=== PATIENT | male | born 1945 | race Caucasian/White ===

== ENCOUNTER 2022-05-28 08:32 | Outpatient (CLI) | payer MEDICARE, SELFPAY ==
[2022-05-28 11:01] LABS: Albumin* 3.9 g/dL (3.3-5.0); Chloride* 105 mmol/L (96-114); Potassium* 3.7 mmol/L (3.6-5.1); Sodium* 141 mmol/L (135-149)
[2022-05-28 11:03] LABS: Bilirubin Total* 1.2 mg/dL (0.1-1.5); Carbon Dioxide* 29 mmol/L (20-32); Cholesterol* 170 mg/dL (90-199); Creatinine* 0.9 mg/dL (0.5-1.5); Estimated Glomerular Filt Rate 89 ml/min
[2022-05-28 11:04] LABS: Alanine Aminotransferase* 21 U/L (4-50); Alkaline Phosphatase* 81 U/L (40-150); Aspartate Amino Transferase* 24 U/L (12-35); Blood Urea Nitrogen* 15 mg/dL (7-30); Glucose* 106 mg/dL (60-115); Total Protein* 6.7 g/dL (6.0-8.3); Triglycerides* 181 mg/dL (40-149)
[2022-05-28 11:05] LABS: Calcium* 9.2 mg/dL (8.4-10.6); HDL Cholesterol* 48 mg/dL (>=40); LDL Cholesterol Calculated 86 mg/dL (<100)
[2022-05-28 11:46] LABS: PSA Screen* < 0.06 ng/mL (0.10-4.00)
== END 2022-05-28 08:33 | disposition home or self-care (01) ==
LOC: NFLDREF 08:32
PROVIDERS: PCP Family Medicine; Visit Provider Family Medicine
DX: E78.5 Hyperlipidemia, unspecified (principal); C61 Malignant neoplasm of prostate; I10 Essential (primary) hypertension; E66.3 Overweight
CPT/HCPCS: 80053; 80061; 84153

== ENCOUNTER 2023-02-22 08:46 | Outpatient (RCR) | payer MEDICARE, SELFPAY ==
--- NOTE | 2023-02-19 09:14 | PC.NURSE ---
Called pt to schedule next Eligard injection. Pt asked to make sure his previous injection was cleared by insurance and the hospital was paid as he had received a bill. RN called ME[employer] financial dept and was notified that the Aug, 2022 dose was cleared but that there is still issues with the February, dose. Pt was updated and reassured that the ME& financial dept was working on that. We scheduled him for an injection on Saturday this week. Reviewed the dose as this is a 4 month dose when he was getting 6 month doses. Bill will f/u with radiation in May,. Support offered.
[2023-02-22 09:32] VITALS: BP 166/92; PULSE 78; RESP 16; TEMP 36.9; O2SAT 97
== END 2023-08-21 23:59 | disposition home or self-care (01) ==
LOC: CCIC 08:46
PROVIDERS: PCP Family Medicine; Referring Provider Family Medicine; Visit Provider Internal Medicine
DX: C61 Malignant neoplasm of prostate (principal)
CPT/HCPCS: 96401; J9217

== ENCOUNTER 2023-05-29 08:40 | Outpatient (CLI) | payer MEDICARE, SELFPAY ==
--- OUTSIDE RECORDS SUMMARY | 2023-05-30 10:22 | XMS_ITS ---
Author Name Unknown Organization [facility] Address [address] [place] [address] Care Team Providers Care Combination Presser Name Role Phone Unavailable Unavailable Unavailable Surgery Details Not on file Complications Check Surgery Details section. Procedure Estimated Blood Loss Check Surgery Details section. Procedure Findings Check Surgery Details section. Procedure Specimens Taken Check Surgery Details section.
--- OUTSIDE RECORDS SUMMARY | 2023-05-30 10:22 | XMS_ITS | Referral Summary ---
Author Name Unknown Organization [facility] Address [address] [place] [address] Care Team Providers Care Plant Engineer Name Role Phone Elsewhere, Pcp Primary Care Provider Unavailabl e Source Comments Patient records contain information from all sites at [facility]. For routine questions regarding patient records, call [phone] during business hours, M-F 8:00 AM - 5:00 PM Central Time. Record requests for emergency care only can be directed to [phone] at any time.[facility] Encounters Date Type Department Care Team Description 05/27/2023 8:51 AM DINKEY ENGINEER - 05/27/2023 11:59 PM DINKEY ENGINEER Hospital Encounter Department of Laboratory Medicine in [address] [phone] Shahram Arnold M.D. Primary Malignant Neoplasm Of Prostate (HCC) Discharge Disposition: Home or Self Care 05/17/2023 11:00 AM DINKEY ENGINEER Clinical Communication Virtual Review in [address] [address] 02/28/2023 9:15 AM DINKEY ENGINEER Office Visit Division of Hematology in [address] [phone] Shahram Arnold M.D. Primary Malignant Neoplasm Of Prostate (HCC) (Primary Dx) 02/27/2023 8:37 AM DINKEY ENGINEER - 02/27/2023 11:59 PM DINKEY ENGINEER Hospital Encounter Department of Laboratory Medicine in [address] [phone] Shahram Arnold M.D. Primary Malignant Neoplasm Of Prostate (HCC) Discharge Disposition: Home or Self Care from Last 3 Months Allergies No known active allergies Medications Medication Sig Dispensed Refills Start Date End Date Status atorvastatin (LIPITOR) 20 mg tablet Take 20 mg by mouth at bedtime. 0 07/27/2019 Active tamsulosin (FLOMAX) 0.4 mg 24 hr capsule Take 2 capsules by mouth at bedtime. 2 tablets (.8mg) 0 09/01/2019 Active sildenafil (REVATIO) 20 mg tablet Take 1-5 tablets by mouth 1 hour prior to sexual activity. Do not exceed more than 5 tabs in 24 hours. 30 tablet 11 01/12/2021 Active Additional Information Patient not taking.Reported on 09/21/2022 leuprolide (ELIGARD 6 MONTH) 45 mg injection Inject 45 mg under the skin once for 1 dose. 1 each 0 05/17/2021 Active cholecalciferol, vitamin D3, 25 mcg (1,000 Unit) tablet Take 50 mcg by mouth at bedtime. Takes one 2000 Unit tablet at bedtime. 0 08/27/2021 Active lisinopriL (PRINIVIL,ZESTRIL) 40 mg tabletIndications:Ot her Secondary Hypertension Take 1 tablet (40 mg total) by mouth daily. 90 tablet 0 03/27/2022 Active Additional Information Patient taking differently:40 mg oralEvery morning, Informant: Self, Reported on 02/26/2023 chlorthalidone (HYGROTON) 25 mg tablet Take 12.5 mg by mouth every morning. Patient takes one-half 25mg tablet daily. 0 07/19/2022 Active calcium carbonate-vitamin D3 1,500 mg (600 mg calcium)-10 mcg (400 Unit) per tablet Take 1 tablet by mouth at bedtime. 0 Active leuprolide (ELIGARD 4 MONTH) 30 mg injection Inject 30 mg under the skin once. Last injection 02/22/2023. 0 Active abiraterone (ZYTIGA) 500 mg tablet Take 2 tablets (1,000 mg total) by mouth daily. 60 tablet 3 02/28/2023 Active Active Problems Problem Noted Date Diagnosed Date Other Secondary Hypertension 12/25/2021 Primary Malignant Neoplasm Of Prostate Cancer Staging:Clinical stage from 03/07/2021:Stage IIIC(cT4, cN0, cM0, PSA: 4, Grade Group: 5) - Signed by Benitez Ames M.D. on 03/31/2021 Immunizations Name Administration Dates Next Due HZV (ZOSTAVAX) 09/27/2013 PCV13 10/03/2016 PPSV23(Discontinued) 01/21/2018 RZV (SHINGRIX) 12/20/2020,07/16/2020 SARS-COV-2 (COVID-19) - MODERNA(Discontinued) ,05/29/2020 Td (Adult), adsorbed 01/20/1999 Tdap 04/13/2019,10/04/2009 Social History Tobacco Use Types Packs/Day Years Used Date Smoking Tobacco: Former Cigarettes 0 2 0 10/14/1963 - 10/13/1965 Smokeless Tobacco: Never Tobacco Cessation:Counseling Given: Not Answered Alcohol Use Standard Drinks/Week Comments Yes 19 (1 standard drink = 0.6 oz pu re alcohol) Humiliation, Afraid, Rape, and Kick questionnair e Answer Date Recorded Within the last year, have y ou been afraid of your partner or ex-partner? No 05/18/2022 Within the last year, have y ou been humiliated or emotionally abused in other ways by your partner or ex-partner? No Within the last year, have y ou been kicked, hit, slapped, or otherwise physically hurt by your partner or ex-partner? No 05/18/2022 Within the last year, have y ou been raped or forced to have any kind of sexual activity by your partner or ex-partner? No 05/18/2022 Social Connection and Isolation Panel [NHANES] A nswer Date Recorded In a typical week, how many times do you talk on the phone with family, friends, or neighbors? Three times a week 05/18/19 How often do you get togethe r with friends or relatives? Once a week 05/18/2022 How often do you attend chur or tenriism services? Never 05/18/2022 Do you belong to any clubs o r organizations such as lutheran groups, unions, fraternal or athletic groups, or school groups? No 05/18/2022 How often do you attend meet ings of the clubs or organizations you belong to? Never 05/18/2022 Are you , , di vorced, , never , or living with a partner? Living with partner 05/18/2022 AUDIT-C Answer Date Recorded Q1: How often do you have a drink containing alcohol? 4 or more times a week 05/18/2022 Q2: How many drinks containi ng alcohol do you have on a typical day when you are drinking? 1 or 2 Q3: How often do you have si x or more drinks on one occasion? Less than monthly 05/18/2022 Overall Financial Resource Strain (CARDIA) Answe r Date Recorded How hard is it for you to pa y for the very basics like food, housing, medical care, and heating? Not hard at all 05/18/2022 [facility] - Occupational Stress Questionnaire Answer Date Recorded Do you feel stress - tense, restless, nervous, or anxious, or unable to sleep at night because your mind is troubled all the time - these days? Only a little 05/18/2022 Exercise Vital Sign Answer Date Recorde d On average, how many days pe r week do you engage in moderate to strenuous exercise (like a brisk walk)? 1 day 05/18/2022 On average, how many minutes do you engage in exercise at this level? 40 min 05/18/2022 Hunger Vital Sign Answer Date Recorded Within the past 12 months, y ou worried that your food would run out before you got the money to buy more. Never true 05/18/19 23 Within the past 12 months, t he food you bought just didn't last and you didn't have money to get more. Never true 05/18/2022 PRAPARE - Transportation Answer Date Re corded In the past 12 months, has l ack of transportation kept you from medical appointments or from getting medications? No 06/2022 In the past 12 months, has l ack of transportation kept you from meetings, work, or from getting things needed for daily living? No 05/18/2022 Housing Stability Vital Sign Answer Kai e Recorded In the last 12 months, was t here a time when you were not able to pay the mortgage or rent on time? No 05/18/2022 In the last 12 months, how many places have you lived? 1 05/18/2022 In the last 12 months, was t here a time when you did not have a steady place to sleep or slept in a senior living (including now)? No 05/18/2022 Nutrition Answer Date Recorded Nutrition: EVOO Fat Source No 05/18 On average, how many serving s of fruits and vegetables do you eat per day (serving size is equal to 1 cup or approximately the size of a tennis ball)? 0-1 05/18/2022 Dental Answer Date Recorded Dental: Regular Dentist Yes 04/14/20 Employment Answer Date Recorded Employment status Retired 05/18/2022 Education Answer Date Recorded What is the highest level of school you have completed or the highest degree you have received? Associate degree: occupational, technical, or vocational program 12/21/2020 Sex and Gender Information Value Date Recorded Sex Assigned at Male 12/16/2020 9:13 AM CDT Gender Identity Male 12/16/2020 9:13 AM CDT Sexual Orientation Straight 12/16/2020 9: 13 AM CDT Last Filed Vital Signs Vital Sign Reading Time Taken Comments Blood Pressure 180/97 02/28/2023 9:03 AM DINKEY ENGINEER Pulse 77 02/28/2023 9:03 AM DINKEY ENGINEER Temperature 37.1 ??C (98.8 ??F) 02/28/2023 9:03 AM CS T Respiratory Rate 16 02/28/2023 9:03 AM DINKEY ENGINEER Oxygen Saturation 96% 02/28/2023 9:03 AM DINKEY ENGINEER Inhaled Oxygen Concentration - - Weight 81.6 kg (179 lb 14.3 oz) 02/28/2023 9:03 AM DINKEY ENGINEER Height 165.1 cm (5' 5) 02/28/2023 9:03 AM DINKEY ENGINEER Body Mass Index 29.94 02/28/2023 9:03 AM DINKEY ENGINEER Plan of Treatment Upcoming Encounters Date Type Department Care Team (Latest Contact Info) Description 05/30/2023 11:00 AM DINKEY ENGINEER Clinical Communication Virtual Review in [place], [place] [address] [place] [address] 06/06/2023 11:15 AM DINKEY ENGINEER Office Visit Department of Oncology in [place], [place] [address] [place] [phone] Shahram Arnold M.D. [address] [place] [address] 06/07/2023 2:00 PM DINKEY ENGINEER Appointment Department of Radiation Oncology in [place], [place] [address] [place] [address] Benitez Ames M.D. [address] [place] [address] Procedures Procedure Name Priority Date/Time Associated Diagnosis Comments PROSTATE-SPECIFIC AG (PSA) DIAGNOSTIC, S Routine 05/27/2023 9:00 AM DINKEY ENGINEER Primary Malignant Neoplasm Of Prostate (HCC) COMPREHENSIVE METABOLIC PANEL, S/P Routine 05/27/2023 9:00 AM DINKEY ENGINEER Primary Malignant Neoplasm Of Prostate (HCC) CBC WITH DIFFERENTIAL, B Routine 05/27/2023 9:00 AM DINKEY ENGINEER Primary Malignant Neoplasm Of Prostate (HCC) TESTOSTERONE, TOT AND FR, S Routine 02/27/2023 8:42 AM DINKEY ENGINEER Primary Malignant Neoplasm Of Prostate (HCC) PROSTATE-SPECIFIC AG (PSA) DIAGNOSTIC, S Routine 02/27/2023 8:42 AM DINKEY ENGINEER Primary Malignant Neoplasm Of Prostate (HCC) COMPREHENSIVE METABOLIC PANEL, S/P Routine 02/27/2023 8:42 AM DINKEY ENGINEER Primary Malignant Neoplasm Of Prostate (HCC) CBC WITH DIFFERENTIAL, B Routine 02/27/2023 8:42 AM DINKEY ENGINEER Primary Malignant Neoplasm Of Prostate (HCC) from Last 3 Months Results * (ABNORMAL) CBC with Differential, Blood (05/27/2023 9:00 AM DINKEY ENGINEER) Only the most recent of2 resultswithin the time period is included. Hemoglobin 12.3(L) 13.2 - 16.6 g/dL 05/27/2023 9:16 AM DINKEY ENGINEER CNFL Hematocrit 36.2(L) 38.3 - 48.6 % 05/27/2023 9:16 AM DINKEY ENGINEER CNFL Erythrocytes 4.17(L) 4.35 - 5.65 x10(12)/L 05/27/2023 9:16 AM DINKEY ENGINEER CNFL MCV 86.8 78.2 - 97.9 fL 05/27/2023 9:16 AM DINKEY ENGINEER CNFL RBC Distrib Width 13.7 11.8 - 14.5 % 05/27/2023 9:16 AM DINKEY ENGINEER CNFL Platelet Count 233 135 - 317 x10(9)/L 05/27/2023 9:16 AM DINKEY ENGINEER CNFL Leukocytes 6.7 3.4 - 9.6 x10(9)/L 05/27/2023 9:16 AM DINKEY ENGINEER CNFL Neutrophils 4.65 1.56 - 6.45 x10(9)/L 05/27/2023 9:16 AM DINKEY ENGINEER CNFL Lymphocytes 1.21 0.95 - 3.07 x10(9)/L 05/27/2023 9:16 AM DINKEY ENGINEER CNFL Monocytes 0.57 0.26 - 0.81 x10(9)/L 05/27/2023 9:16 AM DINKEY ENGINEER CNFL Eosinophils 0.26 0.03 - 0.48 x10(9)/L 05/27/2023 9:16 AM DINKEY ENGINEER CNFL Basophils <0.04 0.01 - 0.08 x10(9)/L 05/27/2023 9:16 AM DINKEY ENGINEER CNFL Blood (Blood, Venous) 05/27/2023 9:00 AM DINKEY ENGINEER 05/27/2023 9:02 AM DINKEY ENGINEER Shahram Arnold M.D. LAB BLOOD ADD-ON Performing Organization Address City/State/[facility] Co de Phone Number [facility] [address] [place] [id number], [facility] CNFL [facility] in [address] [address] * PSA (Prostate-Specific Antigen), Diagnostic (05/27/2023 9:00 AM DINKEY ENGINEER) Only the most recent of2 resultswithin the time period is included. Prostate-Specific Ag <0.10 <=6.5 ng/mL 05/27/2023 1:46 PM DINKEY ENGINEER [facility] Comment: ----ADDITIONAL INFORMATION---- The testing method is an electrochemiluminescence assay manufactured by [employer] and performed on the Modular or Jessie system. Values obtained with different assay methods or kits may be different and cannot be used interchangeably. Test results cannot be interpreted as absolute evidence for the presence or absence of malignant disease. Blood (Blood, Venous) 05/27/2023 9:00 AM DINKEY ENGINEER 05/27/2023 1:01 PM DINKEY ENGINEER Sharham Arnold M.D. LAB BLOOD ADD-ON [facility] [address] [place] [address], [facility] [place] [address] [place] [phone] * (ABNORMAL) Comprehensive Metabolic Panel (05/27/2023 9:00 AM DINKEY ENGINEER) Only the most recent of2 resultswithin the time period is included. Pathologist [facility] Potassium, P 3.2(L) 3.6 - 5.2 mmol/L 05/27/2023 9:27 AM DINKEY ENGINEER CNFL Sodium, P 141 135 - 145 mmol/L 05/27/2023 9:27 AM DINKEY ENGINEER CNFL Chloride, P 101 98 - 107 mmol/L 05/27/2023 9:27 AM DINKEY ENGINEER CNFL Bicarbonate, P 30(H) 22 - 29 mmol/L 05/27/2023 9:51 AM DINKEY ENGINEER CNFL Anion Gap, P 10 7 - 15 05/27/2023 9:51 AM DINKEY ENGINEER CNFL BUN (Blood Urea Nitrogen), P 16 8 - 24 mg/dL 05/27/2023 9:51 AM DINKEY ENGINEER CNFL Creatinine 1.13 0.74 - 1.35 mg/dL 05/27/2023 9:51 AM DINKEY ENGINEER CNFL Estimated GFR (eGFR) 67 >=60 mL/min/BS A 05/27/2023 9:51 AM DINKEY ENGINEER CNFL Comment: Estimated GFR calculated using the 2020 CKD_EPI creatinine equation. Calcium, Total, P 8.8 8.8 - 10.2 mg/dL 05/27/2023 9:51 AM DINKEY ENGINEER CNFL Glucose, P 210(H) 70 - 140 mg/dL 05/27/2023 9:51 AM DINKEY ENGINEER CNFL Protein, Total, P 6.6 6.3 - 7.9 g/dL 05/27/2023 9:51 AM DINKEY ENGINEER CNFL Albumin, P 3.8 3.5 - 5.0 g/dL 05/27/2023 9:27 AM DINKEY ENGINEER CNFL Aspartate Aminotransferase (AST), P 17 8 - 48 U/L 05/27/2023 9:27 AM DINKEY ENGINEER CNFL Alkaline Phosphatase, P 73 40 - 129 U/L 05/27/2023 9:27 AM DINKEY ENGINEER CNFL Alanine Aminotransferase (ALT), P 16 7 - 55 U/L 05/27/2023 9:27 AM DINKEY ENGINEER CNFL Bilirubin, Total, P 0.9 0.0 - 1.2 mg/dL 05/27/2023 9:51 AM DINKEY ENGINEER CNFL Blood (Blood, Venous) 05/27/2023 9:00 AM DINKEY ENGINEER 05/27/2023 9:02 AM DINKEY ENGINEER Shahram Arnold M.D. LAB BLOOD ADD-ON [facility] [address] [place] [id number], [facility] [address] [address] * (ABNORMAL) Testosterone, Total and Free (02/27/2023 8:42 AM DINKEY ENGINEER) Testosterone, Free, S <0.13(L) 3.08 - 11.3 ng/dL 03/06/2023 12:15 PM DINKEY ENGINEER [facility] Comment: ----ADDITIONAL INFORMATION---- This test was developed and its performance characteristics determined by [facility] in a manner consistent with CLIA requirements. This test has not been cleared or approved by the U.S. Food and Drug Administration. Testosterone, Total by Mass Spectrometry, Serum <7.0(L) 240 - 950 ng/dL 03/04/2023 12:59 PM DINKEY ENGINEER [facility] Comment: ----ADDITIONAL INFORMATION---- Testing performed by Liquid Chromatography-Tandem Mass Spectrometry (LC-MS/MS). This test was developed and its performance characteristics determined by [facility] in a manner consistent with CLIA requirements. This test has not been cleared or approved by the U.S. Food and Drug Administration. Blood (Blood, Venous) 02/27/2023 8:42 AM DINKEY ENGINEER 02/28/2023 7:11 AM DINKEY ENGINEER Shahram Arnold M.D. LAB BLOOD NON ADD-O N [facility] [address] [place] [address] [facility] [address] [place] [address] [place] [address] from Last 3 Months Care Teams Plant Engineer Relationship Specialty Start Date End Date Elsewhere, Pcp PCP - General Internal Medicine 10/22/19
--- OUTSIDE RECORDS SUMMARY | 2023-05-30 10:22 | XMS_ITS ---
Author Name Unknown Organization [facility] Address [address] [place] [address] Care Team Providers Care Hand Binder Cutter Name Role Phone Elsewhere, Pcp Primary Care Provider Unavailabl e Active Problems Problem Noted Date Diagnosed Date Other Secondary Hypertension 12/25/2021 Primary Malignant Neoplasm Of Prostate Cancer Staging:Clinical stage from 03/07/2021:Stage IIIC(cT4, cN0, cM0, PSA: 4, Grade Group: 5) - Signed by Benitez Ames M.D. on 03/31/2021 Current Oncology Plans Leuprolide Acetate Every 16 Weeks* Plan Start Date:02/11/2023 Plan Provider:Sienna Strange P.A.-C., M.S. Linked Problems Primary Malignant Neoplasm O f Prostate (HCC) Treatment Medications No medications scheduled. Past Plans Hem/Onc Therapy Plan 1 Plan Name Start Date Discontinue Date Treatment Medications Discontinue Reason Plan Provider LEUPROLIDE ACETATE EVERY 24 WEEKS 06/28/2021 02/06/2023 No medications scheduled. Therapy Complete Adriel Higgins D.O. Hem/Onc Therapy Plan 2 Plan Name Start Date Discontinue Date Treatment Medications Discontinue Reason Plan Provider LEUPROLIDE ACETATE EVERY 24 WEEKS 08/27/2022 01/03/2023 No medications scheduled. Unlisted Rena Kee APRN, C.N.P., D.N.P. Radiation Treatments * Plan Last Treated On Elapsed Days Fractions Treated Prescribed Fraction Dose Prescribed Total Dose [id number] 05/22/2021 35 26 of 26 270 cGy 7,020 cG y Reference Point Last Treated On Elapsed Days Session Dose Total Dose [id number] 05/22/2021 35 270 cGy 7,020 cGy
--- OUTSIDE RECORDS SUMMARY | 2023-05-30 10:22 | XMS_ITS | Clinical Summary ---
Author Name Unknown Organization [facility] Address [address] [place] [address] Care Team Providers Care Door Cutter Name Role Phone Elsewhere, Pcp Primary Care Provider Unavailabl e Source Comments Patient records contain information from all sites at [facility]. For routine questions regarding patient records, call [phone] during business hours, M-F 8:00 AM - 5:00 PM Central Time. Record requests for emergency care only can be directed to [phone] at any time.[facility] Allergies No known active allergies Medications Medication [...] Signed by Benitez Ames M.D. on 03/31/2021 Encounters Date Type Department Care Team Description 05/27/2023 8:51 AM BUSINESS BANKING SALES ASSISTANT - 05/27/2023 11:59 PM BUSINESS BANKING SALES ASSISTANT Hospital Encounter Department of Laboratory Medicine in [address] [phone] Shahram Arnold M.D. Primary Malignant Neoplasm Of Prostate (HCC) Discharge Disposition: Home or Self Care 05/17/2023 11:00 AM BUSINESS BANKING SALES ASSISTANT Clinical Communication Virtual Review in [address] [address] 02/28/2023 9:15 AM BUSINESS BANKING SALES ASSISTANT Office Visit Division of Hematology in [address] [phone] Shahram Arnold M.D. Primary Malignant Neoplasm Of Prostate (HCC) (Primary Dx) 02/27/2023 8:37 AM BUSINESS BANKING SALES ASSISTANT - 02/27/2023 11:59 PM BUSINESS BANKING SALES ASSISTANT Hospital Encounter Department of Laboratory Medicine in [address] [phone] Shahram Arnold M.D. Primary Malignant Neoplasm Of Prostate (HCC) Discharge Disposition: Home or Self Care from Last 3 Months Immunizations Name Administration Dates Next Due HZV (ZOSTAVAX) 09/27/2013 PCV13 10/03/2016 PPSV23(Discontinued) 01/21/2018 RZV (SHINGRIX) 12/20/2020,07/16/2020 SARS-COV-2 (COVID-19) - MODERNA(Discontinued) ,05/29/2020 Td (Adult), adsorbed 01/20/1999 Tdap 04/13/2019,10/04/2009 Family History Medical History Relation Name Comments Hyperlipidemia Father Pradip Dementia Mother Elisavita Diabetes Mother Elize Relation Name Status Comments Father Pradip Mother Levy Social History Tobacco Use Types Packs/Day Years [...] or neighbors? Three times a week 05/18/19 23 How often do you get togethe r with friends or relatives? Once a week 05/18/2022 How often do you attend [facility] or taoist services? Never 05/18/2022 Do you belong to any clubs o r organizations such as temple groups, unions, fraternal or athletic groups, or [...] and heating? Not hard at all 05/18/2022 [facility] - Occupational Stress Questionnaire Answer Date [...] place to sleep or slept in a skilled nursing (including now)? No 05/18/2022 Nutrition Answer Date [...] Comments Blood Pressure 180/97 02/28/2023 9:03 AM BUSINESS BANKING SALES ASSISTANT Pulse 77 02/28/2023 9:03 AM BUSINESS BANKING SALES ASSISTANT Temperature 37.1 ??C (98.8 ??F) 02/28/2023 9:03 AM CS T Respiratory Rate 16 02/28/2023 9:03 AM BUSINESS BANKING SALES ASSISTANT Oxygen Saturation 96% 02/28/2023 9:03 AM BUSINESS BANKING SALES ASSISTANT Inhaled Oxygen Concentration - - Weight 81.6 kg (179 lb 14.3 oz) 02/28/2023 9:03 AM BUSINESS BANKING SALES ASSISTANT Height 165.1 cm (5' 5) 02/28/2023 9:03 AM BUSINESS BANKING SALES ASSISTANT Body Mass Index 29.94 02/28/2023 9:03 AM BUSINESS BANKING SALES ASSISTANT Plan of Treatment Upcoming Encounters Date Type Department Care Team (Latest Contact Info) Description 05/30/2023 11:00 AM BUSINESS BANKING SALES ASSISTANT Clinical Communication Virtual Review in [place], [place] [address] [place], [place] [phone] 06/06/2023 11:15 AM BUSINESS BANKING SALES ASSISTANT Office Visit Department of Oncology in [place], [place] [address] [place] [phone] Shahram Arnold M.D. [address] [place] [phone] 06/07/2023 2:00 PM BUSINESS BANKING SALES ASSISTANT Appointment Department of Radiation Oncology in [place], [place] [address] [place] [phone] Benitez Ames M.D. [address] [place] [phone] Health Maintenance Due Date Last Done Comments Hepatitis C Screening 1945 Influenza Vaccine (#1) 2023 03/27/2022 Depression Screening (Annual PHQ-2) 04/15/2023 Fall Risk Screen (Annual) 04/15/2023 Office Visit for Blood Pressure Check / Re-check 05/31/2023 02/28/2023 Creatinine Level (Kidney Function Test) 05/27/2024 05/27/2023, 02/27/2023, 12/24/2022, Additional history exists Potassium Level 05/27/2024 05/27/2023, 02/13, 12/24/2022, Additional history exists Sodium Level 05/27/2024 05/27/2023, 02/13, 12/24/2022, Additional history exists DTaP,Tdap,and Td Vaccines (3 - Td or Tdap) 04/13/2029 04/13/2019, 10/04/2009, 01/20/1999 Pneumococcal vaccine (65+ years) Completed 01/21/2018, 10/03/2016 Zoster Vaccines Completed 12/20/2020, 06/2020, 09/27/2013 COVID-19 Vaccine Completed 08/17/2022, 11/2021, 07/18/2021, Additional history exists HPV Vaccines Aged Out No longer eligi ble based on patient's age to complete this topic Procedures Procedure Name Priority Date/Time Associated Diagnosis Comments PROSTATE-SPECIFIC AG (PSA) DIAGNOSTIC, S Routine 05/27/2023 9:00 AM BUSINESS BANKING SALES ASSISTANT Primary Malignant Neoplasm Of Prostate (HCC) COMPREHENSIVE METABOLIC PANEL, S/P Routine 05/27/2023 9:00 AM BUSINESS BANKING SALES ASSISTANT Primary Malignant Neoplasm Of Prostate (HCC) CBC WITH DIFFERENTIAL, B Routine 05/27/2023 9:00 AM BUSINESS BANKING SALES ASSISTANT Primary Malignant Neoplasm Of Prostate (HCC) TESTOSTERONE, TOT AND FR, S Routine 02/27/2023 8:42 AM BUSINESS BANKING SALES ASSISTANT Primary Malignant Neoplasm Of Prostate (HCC) PROSTATE-SPECIFIC AG (PSA) DIAGNOSTIC, S Routine 02/27/2023 8:42 AM BUSINESS BANKING SALES ASSISTANT Primary Malignant Neoplasm Of Prostate (HCC) COMPREHENSIVE METABOLIC PANEL, S/P Routine 02/27/2023 8:42 AM BUSINESS BANKING SALES ASSISTANT Primary Malignant Neoplasm Of Prostate (HCC) CBC WITH DIFFERENTIAL, B Routine 02/27/2023 8:42 AM BUSINESS BANKING SALES ASSISTANT Primary Malignant Neoplasm Of Prostate (HCC) from Last 3 Months Results * (ABNORMAL) CBC with Differential, Blood (05/27/2023 9:00 AM BUSINESS BANKING SALES ASSISTANT) Only the most recent of2 resultswithin the time period is included. Hemoglobin 12.3(L) 13.2 - 16.6 g/dL 05/27/2023 9:16 AM BUSINESS BANKING SALES ASSISTANT CNFL Hematocrit 36.2(L) 38.3 - 48.6 % 05/27/2023 9:16 AM BUSINESS BANKING SALES ASSISTANT CNFL Erythrocytes 4.17(L) 4.35 - 5.65 x10(12)/L 05/27/2023 9:16 AM BUSINESS BANKING SALES ASSISTANT CNFL MCV 86.8 78.2 - 97.9 fL 05/27/2023 9:16 AM BUSINESS BANKING SALES ASSISTANT CNFL RBC Distrib Width 13.7 11.8 - 14.5 % 05/27/2023 9:16 AM BUSINESS BANKING SALES ASSISTANT CNFL Platelet Count 233 135 - 317 x10(9)/L 05/27/2023 9:16 AM BUSINESS BANKING SALES ASSISTANT CNFL Leukocytes 6.7 3.4 - 9.6 x10(9)/L 05/27/2023 9:16 AM BUSINESS BANKING SALES ASSISTANT CNFL Neutrophils 4.65 1.56 - 6.45 x10(9)/L 05/27/2023 9:16 AM BUSINESS BANKING SALES ASSISTANT CNFL Lymphocytes 1.21 0.95 - 3.07 x10(9)/L 05/27/2023 9:16 AM BUSINESS BANKING SALES ASSISTANT CNFL Monocytes 0.57 0.26 - 0.81 x10(9)/L 05/27/2023 9:16 AM BUSINESS BANKING SALES ASSISTANT CNFL Eosinophils 0.26 0.03 - 0.48 x10(9)/L 05/27/2023 9:16 AM BUSINESS BANKING SALES ASSISTANT CNFL Basophils <0.04 0.01 - 0.08 x10(9)/L 05/27/2023 9:16 AM BUSINESS BANKING SALES ASSISTANT CNFL Blood (Blood, Venous) 05/27/2023 9:00 AM BUSINESS BANKING SALES ASSISTANT 05/27/2023 9:02 AM BUSINESS BANKING SALES ASSISTANT Shahram Arnold M.D. LAB BLOOD ADD-ON Performing Organization Address City/State/[facility] Co de Phone Number [facility] [address] [place] [address], [facility] [place] [address] * PSA (Prostate-Specific Antigen), Diagnostic (05/27/2023 9:00 AM BUSINESS BANKING SALES ASSISTANT) Only the most recent of2 resultswithin the time period is included. Prostate-Specific Ag <0.10 <=6.5 ng/mL 05/27/2023 1:46 PM BUSINESS BANKING SALES ASSISTANT [facility] Comment: ----ADDITIONAL INFORMATION---- The testing method is an electrochemiluminescence assay manufactured by [employer] and performed on the Modular or Jessie system. Values obtained with different assay methods or kits may be different and cannot be used interchangeably. Test results cannot be interpreted as absolute evidence for the presence or absence of malignant disease. Blood (Blood, Venous) 05/27/2023 9:00 AM BUSINESS BANKING SALES ASSISTANT 05/27/2023 1:01 PM BUSINESS BANKING SALES ASSISTANT Shahram Arnold M.D. LAB BLOOD ADD-ON [facility] [address] [place] [address], [facility] in [place] [address], [place] [phone] * (ABNORMAL) Comprehensive Metabolic Panel (05/27/2023 9:00 AM BUSINESS BANKING SALES ASSISTANT) Only the most recent of2 resultswithin the time period is included. Potassium, P 3.2(L) 3.6 - 5.2 mmol/L 05/27/2023 9:27 AM BUSINESS BANKING SALES ASSISTANT CNFL Sodium, P 141 135 - 145 mmol/L 05/27/2023 9:27 AM BUSINESS BANKING SALES ASSISTANT [facility] Chloride, P 101 98 - 107 mmol/L 05/27/2023 9:27 AM BUSINESS BANKING SALES ASSISTANT CNFL Bicarbonate, P 30(H) 22 - 29 mmol/L 05/27/2023 9:51 AM BUSINESS BANKING SALES ASSISTANT CNFL Anion Gap, P 10 7 - 15 05/27/2023 9:51 AM BUSINESS BANKING SALES ASSISTANT [facility] BUN (Blood Urea Nitrogen), P 16 8 - 24 mg/dL 05/27/2023 9:51 AM BUSINESS BANKING SALES ASSISTANT [facility] Creatinine 1.13 0.74 - 1.35 mg/dL 05/27/2023 9:51 AM BUSINESS BANKING SALES ASSISTANT CNFL Estimated GFR (eGFR) 67 >=60 mL/min/BS A 05/27/2023 9:51 AM BUSINESS BANKING SALES ASSISTANT CN[facility] Comment: Estimated GFR calculated using the 2020 CKD_EPI creatinine equation. Calcium, Total, P 8.8 8.8 - 10.2 mg/dL 05/27/2023 9:51 AM BUSINESS BANKING SALES ASSISTANT CNFL Glucose, P 210(H) 70 - 140 mg/dL 05/27/2023 9:51 AM BUSINESS BANKING SALES ASSISTANT CN[facility] Protein, Total, P 6.6 6.3 - 7.9 g/dL 05/27/2023 9:51 AM BUSINESS BANKING SALES ASSISTANT CN[facility] Albumin, P 3.8 3.5 - 5.0 g/dL 05/27/2023 9:27 AM BUSINESS BANKING SALES ASSISTANT CNFL Aspartate Aminotransferase (AST), P 17 8 - 48 U/L 05/27/2023 9:27 AM BUSINESS BANKING SALES ASSISTANT CNFL Alkaline Phosphatase, P 73 40 - 129 U/L 05/27/2023 9:27 AM BUSINESS BANKING SALES ASSISTANT CNFL Alanine Aminotransferase (ALT), P 16 7 - 55 U/L 05/27/2023 9:27 AM BUSINESS BANKING SALES ASSISTANT CNFL Bilirubin, Total, P 0.9 0.0 - 1.2 mg/dL 05/27/2023 9:51 AM BUSINESS BANKING SALES ASSISTANT CNFL Blood (Blood, Venous) 05/27/2023 9:00 AM BUSINESS BANKING SALES ASSISTANT 05/27/2023 9:02 AM BUSINESS BANKING SALES ASSISTANT Shahram Arnold M.D. LAB BLOOD ADD-ON [facility] [address] [place] [address], [facility] CNFL [facility] [place] [address] * (ABNORMAL) Testosterone, Total and Free (02/27/2023 8:42 AM BUSINESS BANKING SALES ASSISTANT) Pathologist [facility] Testosterone, Free, S <0.13(L) 3.08 - 11.3 ng/dL 03/06/2023 12:15 PM [facility] Comment: ----ADDITIONAL INFORMATION---- This test was developed and its performance characteristics determined by [facility] in a manner consistent with CLIA requirements. This test has not been cleared or approved by the U.S. Food and Drug Administration. Testosterone, Total by Mass Spectrometry, Serum <7.0(L) 240 - 950 ng/dL 03/04/2023 12:59 PM [facility] Comment: ----ADDITIONAL INFORMATION---- Testing performed by Liquid Chromatography-Tandem Mass Spectrometry (LC-MS/MS). This test was developed and its performance characteristics determined by [facility] in a manner consistent with CLIA requirements. This test has not been cleared or approved by the U.S. Food and Drug Administration. Blood (Blood, Venous) 02/27/2023 8:42 AM BUSINESS BANKING SALES ASSISTANT 02/28/2023 7:11 AM BUSINESS BANKING SALES ASSISTANT Shahram Arnold M.D. LAB BLOOD NON ADD-O N [facility] [place] [address] [place] [address] [facility] [address] [place] [address] [place] [address] from Last 3 Months Care Teams Door Cutter Relationship Specialty Start Date End Date Elsewhere, Pcp PCP - General Internal Medicine 10/22/19
--- OUTSIDE RECORDS SUMMARY | 2023-05-30 10:23 | XMS_ITS | Encounter Summary ---
Author Name Unknown Organization [facility] Address [address] [place] [address] Care Team Providers Care Knockout Machine Operator Name Role Phone Elsewhere, Pcp Primary Care Provider Unavailabl e Reason for Visit * Reason Onset Date Comments Blood Pressure 02/26/2023 Encounter Details Date Type Department Care Team (Latest Contact Info) Description 02/26/2023 1:45 PM HOMICIDE SQUAD SERGEANT Clinical Communication Virtual Review in [place], [place] [address] [place] [address] Blood Pressure Social History Tobacco Use Types Packs/Day Years [...] 05/18/2022 How often do you attend chur ch or lutheran services? Never 05/18/2022 Do you belong to any clubs o r organizations such as oriental orthodox groups, unions, fraternal or athletic groups, or [...] when you are drinking? 1 or 2 3 Q3: How often do you have si x or more drinks on one occasion? Less than monthly 05/18/2022 Overall Financial Resource Strain (CARDIA) Answe r Date Recorded How hard is it for you to pa y for the very basics like food, housing, medical care, and heating? Not hard at all 05/18/2022 [facility] - Occupational Stress [...] place to sleep or slept in a penitentiary (including now)? No 05/18/2022 Nutrition Answer Date [...] Orientation Straight 12/16/2020 9: 13 AM CDT documented as of this encounter Plan of Treatment Upcoming Encounters Date Type Department Care Team (Latest Contact Info) Description 05/30/2023 11:00 AM HOMICIDE SQUAD SERGEANT Clinical Communication Virtual Review in [place], [place] [address] [place] [address] 06/06/2023 11:15 AM HOMICIDE SQUAD SERGEANT Office Visit Department of Oncology in [place], [place] [address] [place] [phone] Shahram Arnold M.D. [address] [place] [phone] 06/07/2023 2:00 PM HOMICIDE SQUAD SERGEANT Appointment Department of Radiation Oncology in [place], [place] [address] [place] [phone] Benitez Ames M.D. [address] [place] [address] documented as of this encounter Visit Diagnoses Not on filedocumented in this encounter Care Teams Knockout Machine Operator Relationship Specialty Start Date End Date Elsewhere, Pcp PCP - General Internal Medicine 10/22/19 documented as of this encounter
--- OUTSIDE RECORDS SUMMARY | 2023-05-30 10:23 | XMS_ITS | Encounter Summary ---
Author Name Unknown Organization [facility] Address [address] [place] [address] Care Team Providers Care Teacher [employer] Name Role Phone Elsewhere, Pcp Primary Care Provider Unavailabl e Encounter Details Date Type Department Care Team (Late st Contact Info) Description 11/22/2022 Orders Only Division of Hematology in [place], [place] [address] [place] [phone] Shahram Arnold M.D. [address] [place] [phone] Social History Tobacco Use Types Packs/Day Years Used Date Smoking Tobacco: Former Cigarettes 0 2 0 10/14/1963 - 10/13/1965 Smokeless Tobacco: Never Alcohol Use Standard Drinks/Week Comments Yes 19 [...] often do you attend chur ch or episcopalian services? Never 05/18/2022 Do you belong to any clubs o r organizations such as tenriism groups, unions, fraternal or athletic groups, or [...] and heating? Not hard at all 05/18/2022 [facility] [place] [facility] - Occupational Stress [...] place to sleep or slept in a [facility] (including now)? No 05/18/2022 Nutrition Answer Date [...] (Latest Contact Info) Description 05/30/2023 11:00 AM STONEMASON HELPER Clinical Communication Virtual Review in [place], [place] [address] [place] [address] 06/06/2023 11:15 AM STONEMASON HELPER Office Visit Department of Oncology in [place], [place] [address] [place] [phone] Shahram Arnold M.D. [address] [place] [phone] 06/07/2023 2:00 PM STONEMASON HELPER Appointment Department of Radiation Oncology in [place], [place] [address] [place] [phone] Benitez Ames M.D. [address] [place] [phone] documented as of this encounter Visit Diagnoses Not on filedocumented in this encounter Care Teams Teacher [employer] Relationship Specialty Start Date End Date Elsewhere, Pcp PCP - General Internal Medicine 10/22/19 documented as of this encounter
--- OUTSIDE RECORDS SUMMARY | 2023-05-30 10:23 | XMS_ITS | Encounter Summary ---
Author Name Unknown Organization [facility] Address [address] [place] [address] Care Team Providers Care Zipper Ironer Name Role Phone Elsewhere, Pcp Primary Care Provider Unavailabl e Encounter Details Date Type Department Care Team (Latest Contact Info) Description 02/27/2023 8:37 AM MANAGER PEST - 02/27/2023 11:59 PM MANAGER PEST Hospital Encounter Department of Laboratory Medicine in [address] [phone] Shahram Arnold M.D. [address] [place] [phone] Primary Malignant Neoplasm Of Prostate (HCC) Discharge Disposition: Home or Self Care Social History Tobacco Use Types Packs/Day Years [...] often do you attend chur ch or amish services? Never 05/18/2022 Do you belong to any clubs o r organizations such as rastafari groups, unions, fraternal or athletic groups, or [...] and heating? Not hard at all 05/18/2022 [facility] - Occupational Stress Questionnaire Answer Date Recorded [...] place to sleep or slept in a group home (including now)? No 05/18/2022 Nutrition Answer Date [...] AM CDT documented as of this encounter Medications at Time of Discharge Medication Sig Dispensed Refills Start Date End Date atorvastatin (LIPITOR) 20 mg tablet Take 20 mg by mouth at bedtime. 0 07/27/2019 calcium carbonate-vitamin D3 1,500 mg (600 mg calcium)-10 mcg (400 Unit) per tablet Take 1 tablet by mouth at bedtime. 0 chlorthalidone (HYGROTON) 25 mg tablet Take 12.5 mg by mouth every morning. Patient takes one-half 25mg tablet daily. 0 07/19/2022 cholecalciferol, vitamin D3, 25 mcg (1,000 Unit) tablet Take 50 mcg by mouth at bedtime. Takes one 2000 Unit tablet at bedtime. 0 08/27/2021 leuprolide (ELIGARD 4 MONTH) 30 mg injection Inject 30 mg under the skin once. Last injection 02/22/2023. 0 lisinopriL (PRINIVIL,ZESTRIL) 40 mg tabletIndications:Other Secondary Hypertension Take 1 tablet (40 mg total) by mouth daily. 90 tablet 0 03/27/2022 sildenafil (REVATIO) 20 mg tablet Take 1-5 tablets by mouth 1 hour prior to sexual activity. Do not exceed more than 5 tabs in 24 hours. 30 tablet 11 01/12/2021 tamsulosin (FLOMAX) 0.4 mg 24 hr capsule Take 2 capsules by mouth at bedtime. 2 tablets (.8mg) 0 09/01/2019 abiraterone (ZYTIGA) 500 mg tablet Take 2 tablets (1,000 mg total) by mouth daily. 60 tablet 3 11/22/2022 02/28/2023 documented as of this encounter Plan of Treatment Upcoming Encounters Date Type Department Care Team (Latest Contact Info) Description 05/30/2023 11:00 AM MANAGER PEST Clinical Communication Virtual Review in [place], [place] 200 [place] [address] 06/06/2023 11:15 AM MANAGER PEST Office Visit Department of Oncology in [place], [place] [address] [place] [phone] Shahram Arnold M.D. [address] [place] [phone] 06/07/2023 2:00 PM MANAGER PEST Appointment Department of Radiation Oncology in [address] [phone] Benitez Ames M.D. [address] [place] [phone] documented as of this encounter Procedures Procedure Name Priority Date/Time Associated Diagnosis Comments CBC WITH DIFFERENTIAL, B Routine 02/27/2023 8:42 AM MANAGER PEST Primary Malignant Neoplasm Of Prostate (HCC) TESTOSTERONE, TOT AND FR, S Routine 02/27/2023 8:42 AM MANAGER PEST Primary Malignant Neoplasm Of Prostate (HCC) PROSTATE-SPECIFIC AG (PSA) DIAGNOSTIC, S Routine 02/27/2023 8:42 AM MANAGER PEST Primary Malignant Neoplasm Of Prostate (HCC) COMPREHENSIVE METABOLIC PANEL, S/P Routine 02/27/2023 8:42 AM MANAGER PEST Primary Malignant Neoplasm Of Prostate (HCC) documented in this encounter Results * (ABNORMAL) Testosterone, Total and Free (02/27/2023 8:42 AM MANAGER PEST) Testosterone, Free, S <0.13(L) 3.08 - 11.3 ng/dL 03/06/2023 12:15 PM MANAGER PEST [facility] Comment: ----ADDITIONAL INFORMATION---- This test was developed and its performance characteristics determined by [facility] in a manner consistent with CLIA requirements. This test has not been cleared or approved by the U.S. Food and Drug Administration. Testosterone, Total by Mass Spectrometry, Serum <7.0(L) 240 - 950 ng/dL 03/04/2023 12:59 PM MANAGER PEST [facility] Comment: ----ADDITIONAL INFORMATION---- Testing performed by Liquid Chromatography-Tandem Mass Spectrometry (LC-MS/MS). This test was developed and its performance characteristics determined by [facility] in a manner consistent with CLIA requirements. This test has not been cleared or approved by the U.S. Food and Drug Administration. Blood (Blood, Venous) 02/27/2023 8:42 AM MANAGER PEST 02/28/2023 7:11 AM MANAGER PEST Shahram Arnold M.D. LAB BLOOD NON ADD-O N [facility] [address] [place] [address] [facility] [address] [place] [address] [place] [id number] * PSA (Prostate-Specific Antigen), Diagnostic (02/27/2023 8:42 AM MANAGER PEST) Pathologist [facility] Prostate-Specific Ag <0.10 <=6.5 ng/mL 02/27/2023 1:26 PM MANAGER PEST [facility] Comment: ----ADDITIONAL INFORMATION---- The testing method is an electrochemiluminescence assay manufactured by [employer] and performed on the Modular or Jessie system. Values obtained with different assay methods or kits may be different and cannot be used interchangeably. Test results cannot be interpreted as absolute evidence for the presence or absence of malignant disease. Blood (Blood, Venous) 02/27/2023 8:42 AM MANAGER PEST 02/27/2023 12:35 PM MANAGER PEST Shahram Arnold M.D. LAB BLOOD ADD-ON [facility] [address] [place] [address], [facility] [place] [facility] [address] [place] [phone] * (ABNORMAL) Comprehensive Metabolic Panel (02/27/2023 8:42 AM MANAGER PEST) [facility] Potassium, P 3.1(L) 3.6 - 5.2 mmol/L 02/27/2023 9:05 AM MANAGER PEST CN[facility] Sodium, P 140 135 - 145 mmol/L 02/27/2023 9:05 AM MANAGER PEST CN[facility] Chloride, P 101 98 - 107 mmol/L 02/27/2023 9:05 AM MANAGER PEST CN[facility] Bicarbonate, P 30(H) 22 - 29 mmol/L 02/27/2023 9:05 AM MANAGER PEST CNFL Anion Gap, P 9 7 - 15 02/27/2023 9:05 AM MANAGER PEST CN[facility] BUN (Blood Urea Nitrogen), P 17 8 - 24 mg/dL 02/27/2023 9:05 AM MANAGER PEST CN[facility] Creatinine 0.96 0.74 - 1.35 mg/dL 02/27/2023 9:05 AM MANAGER PEST CNFL Estimated GFR (eGFR) 81 >=60 mL/min/BS A 02/27/2023 9:05 AM MANAGER PEST CNFL Comment: Estimated GFR calculated using the 2020 CKD_EPI creatinine equation. Calcium, Total, P 9.2 8.8 - 10.2 mg/dL 02/27/2023 9:05 AM MANAGER PEST CNFL Glucose, P 133 70 - 140 mg/dL 02/27/2023 9:05 AM MANAGER PEST CN[facility] Protein, Total, P 6.8 6.3 - 7.9 g/dL 02/27/2023 9:05 AM MANAGER PEST CN[facility] Albumin, P 4.1 3.5 - 5.0 g/dL 02/27/2023 9:05 AM MANAGER PEST CN[facility] Aspartate Aminotransferase (AST), P 21 8 - 48 U/L 02/27/2023 9:05 AM MANAGER PEST CN[facility] Alkaline Phosphatase, P 71 40 - 129 U/L 02/27/2023 9:05 AM MANAGER PEST CNFL Alanine Aminotransferase (ALT), P 19 7 - 55 U/L 02/27/2023 9:05 AM MANAGER PEST CNFL Bilirubin, Total, P 1.0 0.0 - 1.2 mg/dL 02/27/2023 9:05 AM MANAGER PEST CN[facility] Blood (Blood, Venous) 02/27/2023 8:42 AM MANAGER PEST 02/27/2023 8:43 AM MANAGER PEST Shahram Arnold M.D. LAB BLOOD ADD-ON Performing Organization Address [facility]/State[facility] Co de Phone Number [facility] [address] [place] [phone], [facility] in [address] [address] * (ABNORMAL) CBC with Differential, Blood (02/27/2023 8:42 AM MANAGER PEST) Hemoglobin 12.5(L) 13.2 - 16.6 g/dL 02/27/2023 8:54 AM MANAGER PEST CNFL Hematocrit 35.8(L) 38.3 - 48.6 % 02/27/2023 8:54 AM MANAGER PEST CN[facility] Erythrocytes 4.12(L) 4.35 - 5.65 x10(12)/L 02/27/2023 8:54 AM MANAGER PEST CN[facility] MCV 86.9 78.2 - 97.9 fL 02/27/2023 8:54 AM MANAGER PEST CN[facility] RBC Distrib Width 13.0 11.8 - 14.5 % 02/27/2023 8:54 AM MANAGER PEST CN[facility] Platelet Count 270 135 - 317 x10(9)/L 02/27/2023 8:54 AM MANAGER PEST CNFL Leukocytes 8.3 3.4 - 9.6 x10(9)/L 02/27/2023 8:54 AM MANAGER PEST [facility] Neutrophils 5.69 1.56 - 6.45 x10(9)/L 02/27/2023 8:54 AM MANAGER PEST [facility] Lymphocytes 1.43 0.95 - 3.07 x10(9)/L 02/27/2023 8:54 AM MANAGER PEST [facility] Monocytes 0.77 0.26 - 0.81 x10(9)/L 02/27/2023 8:54 AM MANAGER PEST CN[facility] Eosinophils 0.32 0.03 - 0.48 x10(9)/L 02/27/2023 8:54 AM MANAGER PEST CN[facility] Basophils 0.05 0.01 - 0.08 x10(9)/L 02/27/2023 8:54 AM MANAGER PEST CN[facility] Blood (Blood, Venous) 02/27/2023 8:42 AM MANAGER PEST 02/27/2023 8:43 AM MANAGER PEST Shahram Arnold M.D. LAB BLOOD ADD-ON Performing Organization Address City/State/[facility] Co de Phone Number [facility] [address] [place] [phone], [facility] CNFL [facility] in [address] [address] documented in this encounter Visit Diagnoses Diagnosis Primary Malignant Neoplasm Of Prostate (HCC) documented in this encounter Care Teams Zipper Ironer Relationship Specialty Start Date End Date Elsewhere, Pcp PCP - General Internal Medicine 10/22/19 documented as of this encounter
--- OUTSIDE RECORDS SUMMARY | 2023-05-30 10:23 | XMS_ITS | Encounter Summary ---
Author Name Unknown Organization [facility] Address [address] [place] [address] Care Team Providers Care Knowledge Management Advisor Name Role Phone Elsewhere, Pcp Primary Care Provider Unavailabl e Reason for Referral * Outpatient (Routine) - Authorized Specialty Diagnoses / Procedures Referred By Contac t Referred To Contact Oncology Shahram Arnold M.D. [address] [place] [phone] [facility] Referral ID Status Reason Start Date Expiration Date V isits Requested Visits Authorized [id number] Authorized 02/28/2023 02/27/2026 1 1 DIRECTOR OF HOME HEALTH SALES Reason for Visit * Outpatient (Routine) - Closed Specialty Diagnoses / Procedures Referred By Contac t Referred To Contact Oncology Shahram Arnold M.D. [address] [place] [phone] [facility] Referral ID Status Reason Start Date Expiration Date Visits Re quested Visits Authorized [id number] Closed 12/27/2022 12/26/2025 1 1 Encounter Details Date Type Department Care Team ([facility] st Contact Info) Description 02/28/2023 9:15 AM AREA DIRECTOR OF HOME HEALTH SALES Office Visit Division of Hematology in [place], [place] [address] [place] [phone] Shahram Arnold M.D. [address] [place] [phone] Primary Malignant Neoplasm Of Prostate (HCC) (Primary Dx) Social History Tobacco Use Types Packs/Day Years [...] How often do you attend chur or islam services? Never 05/18/2022 Do you belong to any clubs o r organizations such as religion groups, unions, fraternal or athletic groups, or [...] and heating? Not hard at all 05/18/2022 [facility] - Occupational Stress [...] place to sleep or slept in a chcf (including now)? No 05/18/2022 Nutrition Answer Date Recorded Nutrition: EVOO Fat Source No 05/18 On average, how many serving s of fruits and vegetables do you eat per day (serving size is equal to 1 cup or approximately the size of a tennis ball)? 0-1 05/18/2022 Dental Answer Date Recorded Dental: Regular Dentist Yes 04/14/20 21 Employment Answer Date Recorded Employment status Retired [...] AM CDT documented as of this encounter Last Filed Vital Signs Vital Sign Reading Time Taken Comments Blood Pressure 180/97 02/28/2023 9:03 AM AREA DIRECTOR OF HOME HEALTH SALES Pulse 77 02/28/2023 9:03 AM AREA DIRECTOR OF HOME HEALTH SALES Temperature 37.1 ??C (98.8 ??F) 02/28/2023 9:03 AM CS T Respiratory Rate 16 02/28/2023 9:03 AM AREA DIRECTOR [employer] HE[employer] SALES Oxygen Saturation 96% 02/28/2023 9:03 AM AREA DIRECTOR OF HOME HE[employer] SALES Inhaled Oxygen Concentration - - Weight 81.6 kg (179 lb 14.3 oz) 02/28/2023 9:03 AM AREA DIRECTOR [employer] HOME HE[employer] SALES Height 165.1 cm (5' 5) 02/28/2023 9:03 AM AREA DIRECTOR [employer] HOME HE[employer] SALES Body Mass Index 29.94 02/28/2023 9:03 AM AREA DIRECTOR OF HOME HEALTH SALES documented in this encounter Progress Notes * Shahrma Arnold M.D. - 02/28/2023 9:15 AM CST SUBJECTIVE CHIEF COMPLAINT / REASON FOR VISIT Ruben Hansen is a 78 y.o. male who presents for follow up of prostate adenocarcinoma. [facility] [place] Primary Staff Property Specialist: Dr. Tavera Primary Fellow: Dr. Paulino HISTORY OF PRESENT ILLNESS Oncology History Overview Note March 2021: PSA 4, Basil 9, MRI showing T4N) disease (invasion of external sphincter, seminal vesicle. FDG Pet CT uptake in prostate and small pulmonary nodule with minimal uptake, no changes insize, no follow up needed as per pulmonary. Negative bone scan April 07, 2021 started leuprolide April 17 to 05/22/21: IMRT to the prostate and seminal vesicles to a dose of 70.2 Gy in 26 fractions. His pelvic lymph nodes were treated to a dose of 46.8 Gy in 26 fractions with a simultaneous integrated boost to 57.2 Gy in 26 fractions to indeterminate left external iliac lymph nodes. Primary Malignant Neoplasm Of Prostate (HCC) 01/12/2021 - Plan Consultation with urology PSA 4.0 01/12/2021; marked focal uptake left prostate found on PET-CT for evaluation of pulmonary nodules 12/16/2020. History benign prostate hypertrophy on tamsulosin 0.8 mg daily. His primary lower urinary tract complaint is urgency with occasional incontinence. Prostate examination showed firmness left apex to mid gland. 01/12/2021 Other PSA 4.0. Outside PSAs: May 02, 2011 PSA 1.62; March 11, 2012 PSA 1.37; January 15, 2018 PSA 3.17; April 07, 2019 PSA 2.91; April 27, 2020 PSA 2.89. 01/18/2021 Critical Imaging Prostate MRI Volume 18cc PIRADS5 2.4 x 1.4 x 2.7 cm, 5.8cc, left posterior to anterior at base to apex, peripheral zone extending to transition zone suspicious for capsular penetration mid gland to base and neurovascular bundle invasion; probable involvement of seminal vesicles in midline to left in the base; mass encasingupper portion of external sphincter; no lymphadenopathy or bone lesions. 03/07/2021 Biopsy/Pathology MRI fusion biopsy: 6/6 left prostate region of interest Basil 4+5 (75% of specimen), extraprostatic extension and perineural invasion present; 6 benign cores right. Prostate examination showed leftinduration. 03/07/2021 Clinical Stage Staging form: Prostate, AJCC 8th Edition - Clinical stage from 03/07/2021: Stage IIIC (cT4, cN0, cM0, PSA: 4, Grade Group: 5) Histopathologic type: Adenocarcinoma, NOS Stage prefix: Initial diagnosis Prostate specific antigen (PSA) range: Less than 10 [place] primary pattern: 4 Basil secondary pattern: 5 Histologic grading system: 5 grade system Number of biopsy cores examined: 12 Number of biopsy cores positive: 6 Location of positive needle core biopsies: One side 04/17/2021 - 05/22/2021 Radiation Therapy Radiation Therapy Treatment Details (04/17/2021 - 05/22/2021) Site: Prostate Technique: IMRT Goal: Curative Planned Treatment Start Date: 04/17/2021 INTERVAL HISTORY Mr. Hansen presents with his fiancee for follow up today. Since our last visit, he has overall been doing well, no major changes to report today. OBJECTIVE PHYSICAL EXAM Vitals: 02/28/23 0903 BP: (!) 180/97 Pulse: 77 Resp: 16 Temp: 37.1 ??C SpO2: 96% Constitutional General: He is not in acute distress. Appearance: He is normal weight. He is not toxic-appearing. HENT Head: Normocephalic and atraumatic. Eyes Extraocular Movements: Extraocular movements intact. Conjunctiva/sclera: Conjunctivae normal. Cardiovascular Rate and Rhythm: Normal rate. Pulmonary Effort: Pulmonary effort is normal. Abdominal General: Abdomen is flat. Palpations: Abdomen is soft. Musculoskeletal Right lower leg: No edema. Left lower leg: No edema. Skin General: Skin is warm and dry. Findings: No rash. Neurological General: No focal deficit present. Mental Status: He is alert and oriented to person, place, and time. Psychiatric Mood and Affect: Mood normal. Behavior: Behavior normal. Thought Content: Thought content normal. Judgment: Judgment normal. 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 Hansen back for follow up. His labs look satisfactory today, and I am glad that he overall continues to tolerate treatment well without any significant toxicities. Although his BP is high in the office today, his home BP is significantly better, largely ranging in the 120s-130s systolic. Note that this is consistent with his prior history. Plan is for 2 years of systemic therapy from end of EBRT which was completed in May 2021. He received his dose of Eligard on approximately 02/22/2022, which is his last dose. I did discuss this with his Radiation Oncology team as well. We will plan to see him back for follow up in 3 months. I discussed the tentative surveillance plan with Dr. Ames and Dr. Tavera - we will plan for surveillance with labs (including PSA) every 3 months for the first 1-2 years (given he was high-risk,asymptomatic, and without significant PSA elevation at diagnosis). Thereafter, if all goes well, wecan consider spacing out labs to every 6 months to complete 5 years of surveillance. Following thisperiod, PSA monitoring can be spaced out to annually. He will be seeing Dr. Ames for follow up in early May 2023, and we will see him back for follow up here shortly thereafter. Shahram Arnold M.D. Hematology/Oncology PGY-5 DIRECTOR OF HOME HEALTH SALES documented in this encounter Plan of Treatment Upcoming Encounters Date Type Department Care Team (Latest Contact Info) Description 05/30/2023 11:00 AM AREA DIRECTOR OF HOME HEALTH SALES Clinical Communication Virtual Review in [place], [place] 200 [place] [address] 06/06/2023 11:15 AM AREA DIRECTOR OF HOME HEALTH SALES Office Visit Department of Oncology in [place], [place] [address] [place] [phone] Shahram Arnold M.D. [address] [place] [phone] 06/07/2023 2:00 PM AREA DIRECTOR OF [employer] HEALTH SALES Appointment Department of Radiation Oncology in [place], [place] [address] [place] [phone] Benitez Ames M.D. [address] [place] [phone] Pending Results Name Type Priority Associated Diagnoses Date /Time Testosterone, Total and Free Lab Routine Primary Malignant Neoplasm Of Prostate (HCC) 05/27/2023 9:00 AM AREA DIRECTOR OF HOME HEALTH SALES Scheduled Orders Name Type Priority Associated Diagnoses Orde r Schedule Testosterone, Total and Free Lab Routine Primary Malignant Neoplasm Of Prostate (HCC) Expected: 05/31/2023 (Approximate), Expires: 05/31/2024 Scheduled Referrals Name Type Priority Associated Diagnoses Orde r Schedule Oncology office visit (clinic) Outpatient Referral Routine Expected: 05/31/2023 (Approximate), Expires: 05/31/2024 documented as of this encounter Results * PSA (Prostate-Specific Antigen), Diagnostic (05/27/2023 9:00 AM AREA DIRECTOR OF HOME HE[employer] SALES) Prostate-Specific Ag <0.10 <=6.5 ng/mL 05/27/2023 1:46 PM AREA DIRECTOR OF HOME HEALTH SALES [facility] Comment: ----ADDITIONAL INFORMATION---- The testing method is an electrochemiluminescence assay manufactured by [employer] and performed on the Modular or Jessie system. Values obtained with different assay methods or kits may be different and cannot be used interchangeably. Test results cannot be interpreted as absolute evidence for the presence or absence of malignant disease. Blood (Blood, Venous) 05/27/2023 9:00 AM AREA DIRECTOR OF HOME HEALTH SALES 05/27/2023 1:01 PM AREA DIRECTOR OF HOME HEALTH SALES Shahram Arnold M.D. LAB BLOOD ADD-ON [facility] [address] [place] [address], [facility] RDWG [facility] in [place] [address] [place] [phone] * (ABNORMAL) Comprehensive Metabolic Panel (05/27/2023 9:00 AM AREA DIRECTOR OF HOME HEALTH SALES) Potassium, P 3.2(L) 3.6 - 5.2 mmol/L 05/27/2023 9:27 AM AREA DIRECTOR OF [employer] HE[employer] SALES CNFL Sodium, P 141 135 - 145 mmol/L 05/27/2023 9:27 AM AREA DIRECTOR OF [employer] HE[employer] SALES CNFL Chloride, P 101 98 - 107 mmol/L 05/27/2023 9:27 AM AREA DIRECT[employer] OF [employer] HE[employer] SALES CNFL Bicarbonate, P 30(H) 22 - 29 mmol/L 05/27/2023 9:51 AM AREA DIRECTOR OF [employer] HE[employer] SALES CNFL Anion Gap, P 10 7 - 15 05/27/2023 9:51 AM AREA DIRECT[employer] OF [employer] HE[employer] SALES CNFL BUN (Blood Urea Nitrogen), P 16 8 - 24 mg/dL 05/27/2023 9:51 AM AREA DIRECT[employer] SALES CNFL Creatinine 1.13 0.74 - 1.35 mg/dL 05/27/2023 9:51 AM AREA DIRECT[employer] SALES CNFL Estimated GFR (eGFR) 67 >=60 mL/min/BS A 05/27/2023 9:51 AM AREA DIRECTOR [employer] SALES CNFL Comment: Estimated GFR calculated using the 2020 CKD_EPI creatinine equation. Calcium, Total, P 8.8 8.8 - 10.2 mg/dL 05/27/2023 9:51 AM AREA DIRECT[employer] SALES CNFL Glucose, P 210(H) 70 - 140 mg/dL 05/27/2023 9:51 AM AREA DIRECT[employer] SALES CNFL Protein, Total, P 6.6 6.3 - 7.9 g/dL 05/27/2023 9:51 AM AREA DIRECT[employer] OF [employer] HE[employer] SALES CNFL Albumin, P 3.8 3.5 - 5.0 g/dL 05/27/2023 9:27 AM AREA DIRECT[employer] SALES CNFL Aspartate Aminotransferase (AST), P 17 8 - 48 U/L 05/27/2023 9:27 AM AREA DIRECT[employer] SALES CNFL Alkaline Phosphatase, P 73 40 - 129 U/L 05/27/2023 9:27 AM AREA DIRECT[employer] SALES CNFL Alanine Aminotransferase (ALT), P 16 7 - 55 U/L 05/27/2023 9:27 AM AREA DIRECTOR [employer] SALES CNFL Bilirubin, Total, P 0.9 0.0 - 1.2 mg/dL 05/27/2023 9:51 AM AREA DIRECT[employer] SALES CNFL Blood (Blood, Venous) 05/27/2023 9:00 AM AREA DIRECT[employer] HE[employer] SALES 05/27/2023 9:02 AM AREA DIRECTOR OF HOME HEALTH SALES Shahram Arnold M.D. LAB BLOOD ADD-ON [facility] [address] [place] [address], [place] [address] * (ABNORMAL) CBC with Differential, Blood (05/27/2023 9:00 AM AREA DIRECTOR OF [employer] HEALTH SALES) Hemoglobin 12.3(L) 13.2 - 16.6 g/dL 05/27/2023 9:16 AM AREA DIRECTOR [employer] SALES CNFL Hematocrit 36.2(L) 38.3 - 48.6 % 05/27/2023 9:16 AM AREA DIRECTOR [employer] SALES CNFL Erythrocytes 4.17(L) 4.35 - 5.65 x10(12)/L 05/27/2023 9:16 AM AREA DIRECT[employer] SALES CNFL MCV 86.8 78.2 - 97.9 fL 05/27/2023 9:16 AM AREA DIRECT[employer] SALES CNFL RBC Distrib Width 13.7 11.8 - 14.5 % 05/27/2023 9:16 AM AREA [employer] CNFL Platelet Count 233 135 - 317 x10(9)/L 05/27/2023 9:16 AM AREA DIRECT[employer] SALES CNFL Leukocytes 6.7 3.4 - 9.6 x10(9)/L 05/27/2023 9:16 AM AREA DIRECT[employer] SALES CNFL Neutrophils 4.65 1.56 - 6.45 x10(9)/L 05/27/2023 9:16 AM AREA DIRECT[employer] SALES CNFL Lymphocytes 1.21 0.95 - 3.07 x10(9)/L 05/27/2023 9:16 AM AREA DIRECT[employer] HE[employer] SALES CNFL Monocytes 0.57 0.26 - 0.81 x10(9)/L 05/27/2023 9:16 AM AREA DIRECT[employer] SALES CNFL Eosinophils 0.26 0.03 - 0.48 x10(9)/L 05/27/2023 9:16 AM AREA DIRECTOR OF [employer] HE[employer] SALES CNFL Basophils <0.04 0.01 - 0.08 x10(9)/L 05/27/2023 9:16 AM AREA DIRECT[employer] HE[employer] SALES CNFL Blood (Blood, Venous) 05/27/2023 9:00 AM AREA DIRECT[employer] HE[employer] SALES 05/27/2023 9:02 AM AREA DIRECTOR OF HOME HEALTH SALES Shahram Arnold M.D. LAB BLOOD ADD-ON [facility] [address] [place] [phone], [facility] CNFL [facility] in [address] [phone] documented in this encounter Visit Diagnoses Diagnosis Primary Malignant Neoplasm Of Prostate (HCC)- Primary documented in this encounter Care Teams Knowledge Management Advisor Relationship Specialty Start Date End Date Elsewhere, Pcp PCP - General Internal Medicine 10/22/19 documented as of this encounter
--- OUTSIDE RECORDS SUMMARY | 2023-05-30 10:23 | XMS_ITS | Encounter Summary ---
Author Name Unknown Organization [facility] Address [address] [place] [address] Care Team Providers Care Car Spotter Name Role Phone Elsewhere, Pcp Primary Care Provider Unavailabl e Reason for Visit * Reason Onset Date Comments Med Refill 11/22/2022 abiraterone Encounter Details Date Type Department Care Team (Latest Contact Info) Description 11/22/2022 Clinical Communication Department of Oncology in [place], [place] [address] [place] [phone] Lo Chilel, RRyanN. [address] [place] [phone] Med Refill (abiraterone) Social History Tobacco Use Types Packs/Day Years [...] often do you attend chur ch or restoration services? Never 05/18/2022 Do you belong to any clubs o r organizations such as denominational groups, unions, fraternal or athletic groups, or [...] and heating? Not hard at all 05/18/2022 [facility] - Occupational [...] place to sleep or slept in a prison (including now)? No 05/18/2022 Nutrition Answer Date [...] AM CDT documented as of this encounter Miscellaneous Notes * Telephone Encounter - Nery Green - 11/22/2022 7:56 AM CDT Received refill request for: abiraterone Previous dose prescribed: 500 mg Last date prescribed: 07/07/2022 Last date filled: 11/01/2022 Pharmacy: [facility] [address] documented in this encounter Plan of Treatment Upcoming Encounters Date Type Department Care Team (Latest Contact Info) Description 05/30/2023 11:00 AM PRODUCT DEVELOPMENT ASSISTANT Clinical Communication Virtual Review in [place], [place] 200 [place] [address] 06/06/2023 11:15 AM PRODUCT DEVELOPMENT ASSISTANT Office Visit Department of Oncology in [place], [place] [address] [place] [phone] Shahram Arnold M.D. [address] [place] [phone] 06/07/2023 2:00 PM PRODUCT DEVELOPMENT ASSISTANT Appointment Department of Radiation Oncology in [place], [place] [address] [place] [phone] Benitez Ames M.D. [address] [place] [phone] documented as of this encounter Visit Diagnoses Not on filedocumented in this encounter Care Teams Car Spotter Relationship Specialty Start Date End Date Elsewhere, Pcp PCP - General Internal Medicine 10/22/19 documented as of this encounter
--- OUTSIDE RECORDS SUMMARY | 2023-05-30 10:23 | XMS_ITS | Encounter Summary ---
Author Name Unknown Organization [facility] Address [address] [place] [address] Care Team Providers Care Business Systems Lead Name Role Phone Elsewhere, Pcp Primary Care Provider Unavailabl e Encounter Details Date Type Department Care Team (Latest Contact Info) Description 05/27/2023 8:51 AM TMD TEACHER ASSISTANT - 05/27/2023 11:59 PM TMD TEACHER ASSISTANT Hospital Encounter Department of Laboratory Medicine in [address] [phone] Shahram Arnold M.D. [address] [place] [phone] Primary Malignant Neoplasm Of Prostate (HCC) Discharge [...] often do you attend chur ch or nondenominational services? Never 05/18/2022 Do you belong to any clubs o r organizations such as gnosticist groups, unions, fraternal or athletic groups, or [...] and heating? Not hard at all 05/18/2022 [facility] - Occupational Stress Questionnaire Answer Date [...] place to sleep or slept in a [place] [facility] [place] facility (including now)? No 05/18/2022 Nutrition Answer Date [...] Sig Dispensed Refills Start Date End Date abiraterone (ZYTIGA) 500 mg tablet Take 2 tablets (1,000 mg total) by mouth daily. 60 tablet 3 02/28/2023 atorvastatin (LIPITOR) 20 mg tablet Take 20 [...] at bedtime. 2 tablets (.8mg) 0 09/01/2019 documented as of this encounter Plan of Treatment Upcoming Encounters Date Type Department Care Team (Latest Contact Info) Description 05/30/2023 11:00 AM TMD TEACHER ASSISTANT Clinical Communication Virtual Review in [place], [place] 200 [place] [address] 06/06/2023 11:15 AM TMD TEACHER ASSISTANT Office Visit Department of Oncology in [place], [place] [address] [place] [phone] Shahram Arnold M.D. [address] [place] [phone] 06/07/2023 2:00 PM TMD TEACHER ASSISTANT Appointment Department of Radiation Oncology in [address] [phone] Benitez Ames M.D. [address] [place] [phone] Pending Results Name Type Priority Associated Diagnoses Date /Time Testosterone, Total and Free Lab Routine Primary Malignant Neoplasm Of Prostate (HCC) 05/27/2023 9:00 AM TMD TEACHER ASSISTANT Scheduled Orders Name Type Priority Associated Diagnoses Orde r Schedule Testosterone, Total and Free Lab Routine Primary Malignant Neoplasm Of Prostate (HCC) Once for 1 Occurrences starting 05/27/2023 until 05/27/2023 documented as of this encounter Procedures Procedure Name Priority Date/Time Associated Diagnosis Comments CBC WITH DIFFERENTIAL, B Routine 05/27/2023 9:00 AM TMD TEACHER ASSISTANT Primary Malignant Neoplasm Of Prostate (HCC) PROSTATE-SPECIFIC AG (PSA) DIAGNOSTIC, S Routine 05/27/2023 9:00 AM TMD TEACHER ASSISTANT Primary Malignant Neoplasm Of Prostate (HCC) COMPREHENSIVE METABOLIC PANEL, S/P Routine 05/27/2023 9:00 AM TMD TEACHER ASSISTANT Primary Malignant Neoplasm Of Prostate (HCC) documented in this encounter Results * PSA (Prostate-Specific Antigen), Diagnostic (05/27/2023 9:00 AM TMD TEACHER ASSISTANT) Pathologist [facility] Prostate-Specific Ag <0.10 <=6.5 ng/mL 05/27/2023 1:46 PM TMD TEACHER ASSISTANT RDW Comment: ----ADDITIONAL INFORMATION---- The testing method is an electrochemiluminescence assay manufactured by [employer] and performed on the Modular or Jessie system. Values obtained with different assay methods or kits may be different and cannot be used interchangeably. Test results cannot be interpreted as absolute evidence for the presence or absence of malignant disease. Blood (Blood, Venous) 05/27/2023 9:00 AM TMD TEACHER ASSISTANT 05/27/2023 1:01 PM TMD TEACHER ASSISTANT Shahram Arnold M.D. LAB BLOOD ADD-ON [facility] [address] [place] [phone], [facility] RDWG [facility] in [place] [address] [place] [address] [place] [phone] * (ABNORMAL) Comprehensive Metabolic Panel (05/27/2023 9:00 AM TMD TEACHER ASSISTANT) Pathologist [facility] Potassium, P 3.2(L) 3.6 - 5.2 mmol/L 05/27/2023 9:27 AM TMD TEACHER ASSISTANT CNFL Sodium, P 141 135 - 145 mmol/L 05/27/2023 9:27 AM TMD TEACHER ASSISTANT CNFL Chloride, P 101 98 - 107 mmol/L 05/27/2023 9:27 AM TMD TEACHER ASSISTANT CNFL Bicarbonate, P 30(H) 22 - 29 mmol/L 05/27/2023 9:51 AM TMD TEACHER ASSISTANT CNFL Anion Gap, P 10 7 - 15 05/27/2023 9:51 AM TMD TEACHER ASSISTANT CNFL BUN (Blood Urea Nitrogen), P 16 8 - 24 mg/dL 05/27/2023 9:51 AM TMD TEACHER ASSISTANT CNFL Creatinine 1.13 0.74 - 1.35 mg/dL 05/27/2023 9:51 AM TMD TEACHER ASSISTANT CNFL Estimated GFR (eGFR) 67 >=60 mL/min/BS A 05/27/2023 9:51 AM TMD TEACHER ASSISTANT CNFL Comment: Estimated GFR calculated using the 2020 CKD_EPI creatinine equation. Calcium, Total, P 8.8 8.8 - 10.2 mg/dL 05/27/2023 9:51 AM TMD TEACHER ASSISTANT CNFL Glucose, P 210(H) 70 - 140 mg/dL 05/27/2023 9:51 AM TMD TEACHER ASSISTANT CNFL Protein, Total, P 6.6 6.3 - 7.9 g/dL 05/27/2023 9:51 AM TMD TEACHER ASSISTANT CNFL Albumin, P 3.8 3.5 - 5.0 g/dL 05/27/2023 9:27 AM TMD TEACHER ASSISTANT CNFL Aspartate Aminotransferase (AST), P 17 8 - 48 U/L 05/27/2023 9:27 AM TMD TEACHER ASSISTANT CNFL Alkaline Phosphatase, P 73 40 - 129 U/L 05/27/2023 9:27 AM TMD TEACHER ASSISTANT CNFL Alanine Aminotransferase (ALT), P 16 7 - 55 U/L 05/27/2023 9:27 AM TMD TEACHER ASSISTANT CNFL Bilirubin, Total, P 0.9 0.0 - 1.2 mg/dL 05/27/2023 9:51 AM TMD TEACHER ASSISTANT CNFL Blood (Blood, Venous) 05/27/2023 9:00 AM TMD TEACHER ASSISTANT 05/27/2023 9:02 AM TMD TEACHER ASSISTANT Shahram Arnold M.D. LAB BLOOD ADD-ON [facility] [address] [place] [phone], [facility] CNFL [facility] in [address] [address] * (ABNORMAL) CBC with Differential, Blood (05/27/2023 9:00 AM TMD TEACHER ASSISTANT) Hemoglobin 12.3(L) 13.2 - 16.6 g/dL 05/27/2023 9:16 AM TMD TEACHER ASSISTANT CNFL Hematocrit 36.2(L) 38.3 - 48.6 % 05/27/2023 9:16 AM TMD TEACHER ASSISTANT CNFL Erythrocytes 4.17(L) 4.35 - 5.65 x10(12)/L 05/27/2023 9:16 AM TMD TEACHER ASSISTANT CNFL MCV 86.8 78.2 - 97.9 fL 05/27/2023 9:16 AM TMD TEACHER ASSISTANT CNFL RBC Distrib Width 13.7 11.8 - 14.5 % 05/27/2023 9:16 AM TMD TEACHER ASSISTANT CNFL Platelet Count 233 135 - 317 x10(9)/L 05/27/2023 9:16 AM TMD TEACHER ASSISTANT CNFL Leukocytes 6.7 3.4 - 9.6 x10(9)/L 05/27/2023 9:16 AM TMD TEACHER ASSISTANT CNFL Neutrophils 4.65 1.56 - 6.45 x10(9)/L 05/27/2023 9:16 AM TMD TEACHER ASSISTANT CNFL Lymphocytes 1.21 0.95 - 3.07 x10(9)/L 05/27/2023 9:16 AM TMD TEACHER ASSISTANT CNFL Monocytes 0.57 0.26 - 0.81 x10(9)/L 05/27/2023 9:16 AM TMD TEACHER ASSISTANT CNFL Eosinophils 0.26 0.03 - 0.48 x10(9)/L 05/27/2023 9:16 AM TMD TEACHER ASSISTANT CNFL Basophils <0.04 0.01 - 0.08 x10(9)/L 05/27/2023 9:16 AM TMD TEACHER ASSISTANT CNFL Blood (Blood, Venous) 05/27/2023 9:00 AM TMD TEACHER ASSISTANT 05/27/2023 9:02 AM TMD TEACHER ASSISTANT Shahram Arnold M.D. LAB BLOOD ADD-ON [facility] [address] [place], [place] [phone], [facility] CNFL [facility] in [address] [address] documented in this encounter Visit Diagnoses Diagnosis Primary Malignant Neoplasm Of Prostate (HCC) documented in this encounter Care Teams Business Systems Lead Relationship Specialty Start Date End Date Elsewhere, Pcp PCP - General Internal Medicine 10/22/19 documented as of this encounter
--- OUTSIDE RECORDS SUMMARY | 2023-05-30 10:23 | XMS_ITS | Encounter Summary ---
Author Name Unknown Organization [facility] Address [address] [place] [address] Care Team Providers Care Ecdis N Navigation Operator Name Role Phone Elsewhere, Pcp Primary Care Provider Unavailabl e Reason for Referral * Outpatient (Routine) - Closed Specialty Diagnoses / Procedures Referred By Alpa mijares Referred To Contact Oncology Shahram Arnold M.D. [address] [place] [phone] [facility] Referral ID Status Reason Start Date Expiration Date Visits Re quested Visits Authorized [id number] Closed 12/27/2022 12/26/2025 1 1 Reason for Visit * Outpatient (Routine) - Closed Specialty Diagnoses / Procedures Referred By Alpa mijares Referred To Contact Oncology Shahram Arnold M.D. [address] [place] [phone] [facility] Referral ID Status Reason Start Date Expiration Date Visits Re quested Visits Authorized [id number] Closed 09/25/2022 09/24/2025 1 1 Encounter Details Date Type Department Care Team ([facility] st Contact Info) Description 12/27/2022 10:45 AM CDT Virtual Visit Department of Oncology in [place], [place] [address] [place] [phone] Shahram Arnold M.D. [address] [place] [phone] Primary Malignant Neoplasm Of Prostate (HCC) (Primary [...] How often do you attend chur or yazidism services? Never 05/18/2022 Do you belong to any clubs o r organizations such as restorationism groups, unions, fraternal or athletic groups, or [...] and heating? Not hard at all 05/18/2022 [facility] - Occupational [...] AM CDT documented as of this encounter Progress Notes * Shahram Arnold M.D. - 12/27/2022 10:45 AM CDT SUBJECTIVE CHIEF COMPLAINT / REASON FOR VISIT Ruben Hansen is a 77 y.o. male who presents for follow up of prostate adenocarcinoma. [facility] Primary Staff Short Order Cook: Dr. Tavera Primary Fellow: Dr. Paulino HISTORY OF PRESENT ILLNESS Oncology History Overview Note March 2021: PSA 4, [place] 9, MRI showing T4N) disease (invasion of [...] specific antigen (PSA) range: Less than 10 [place] primary pattern: 4 Basil secondary pattern: 5 Histologic grading system: 5 grade system Number of biopsy cores examined: 12 Number of biopsy cores positive: 6 Location of positive needle core biopsies: One side 04/17/2021 - 05/22/2021 Radiation Therapy Radiation Therapy Treatment Details (04/17/2021 - 05/22/2021) Site: Prostate Technique: IMRT Goal: Curative Planned Treatment Start Date: 04/17/2021 INTERVAL HISTORY Mr. Hansen presents via telephone visit today for follow up. His fiancee unfortunately caught COVID-19 while on a trip, and he has been exposed. Since our last follow up on 09/25/2022, he has overall been doing well without any new concerns or symptoms. His blood pressure had been very well-controlled with initiation of chlorthalidone (average 120/74 over the past month), but has been more elevated over the past 2 days (where it has been in 130s/80s) which he attributes to anxiety over the COVID-19 infection. OBJECTIVE PHYSICAL EXAM There were no vitals filed for this visit. Phone visit, no physical exam performed. 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 Hansen in follow up. His labs look satisfactory today, and I am glad that he overall continues to tolerate treatment well without any significant toxicities. Plan is for 2 years of systemic therapy from end of EBRT which was completed in May 2021. He received his dose of Eligard on approximately 08/25/2022, and will be due for his next dose in 6 months. As he is otherwise been tolerating this therapy well, we will plan to continue the current dosing. We will plan to see him back for follow up in 3 months. Shahram Arnold M.D. Hematology/Oncology PGY-5 documented in this encounter Plan of Treatment Upcoming Encounters Date Type Department Care Team (Latest Contact Info) Description 05/30/2023 11:00 AM CURATOR Clinical Communication Virtual Review in [address] [address] 06/06/2023 11:15 AM CURATOR Office Visit Department of Oncology in [place], [place] [address] [place] [phone] Shahram Arnold M.D. [address] [place] [phone] 06/07/2023 2:00 PM CURATOR Appointment Department of Radiation Oncology in [place], [place] [address] [place] [phone] Benitez Ames M.D. [address] [place] [phone] Scheduled Referrals Name Type Priority Associated Diagnoses Orde r Schedule Oncology office visit (clinic) Outpatient Referral Routine Expected: 03/28/2023 (Approximate), Expires: 03/28/2024 documented as of this encounter Results * (ABNORMAL) Testosterone, Total and Free (02/27/2023 8:42 AM CURATOR) Testosterone, Free, S <0.13(L) 3.08 - 11.3 ng/dL 03/06/2023 12:15 PM CURATOR [facility] Comment: ----ADDITIONAL INFORMATION---- This test was developed and its performance characteristics determined by [facility] in a manner consistent with CLIA requirements. This test has not been cleared or approved by the U.S. Food and Drug Administration. Testosterone, Total by Mass Spectrometry, Serum <7.0(L) 240 - 950 ng/dL 03/04/2023 12:59 PM CURATOR [facility] Comment: ----ADDITIONAL INFORMATION---- Testing performed by Liquid Chromatography-Tandem Mass Spectrometry (LC-MS/MS). This test was developed and its performance characteristics determined by [facility] in a manner consistent with CLIA requirements. This test has not been cleared or approved by the U.S. Food and Drug Administration. Blood (Blood, Venous) 02/27/2023 8:42 AM CURATOR 02/28/2023 7:11 AM CURATOR Shahram Arnold M.D. LAB BLOOD NON ADD-O N Performing Organization Address City/State/[facility] Co de Phone Number [facility] [address] [place] [address] [facility] [address] [place] [address] [place] [address] * PSA (Prostate-Specific Antigen), Diagnostic (02/27/2023 8:42 AM CURATOR) Prostate-Specific Ag <0.10 <=6.5 ng/mL 02/27/2023 1:26 PM CURATOR RDWG Comment: ----ADDITIONAL INFORMATION---- The testing method is an electrochemiluminescence assay manufactured by [employer] and performed on the Modular or Jessie system. Values obtained with different assay methods or kits may be different and cannot be used interchangeably. Test results cannot be interpreted as absolute evidence for the presence or absence of malignant disease. Blood (Blood, Venous) 02/27/2023 8:42 AM CURATOR 02/27/2023 12:35 PM CURATOR Shahram Arnold M.D. LAB BLOOD ADD-ON [facility] [address] [place] [address], [place] RDWG [facility] [place] in [place] [address] [place] [phone] * (ABNORMAL) Comprehensive Metabolic Panel (02/27/2023 8:42 AM CURATOR) Potassium, P 3.1(L) 3.6 - 5.2 mmol/L 02/27/2023 9:05 AM CURATOR CNFL Sodium, P 140 135 - 145 mmol/L 02/27/2023 9:05 AM CURATOR CNFL Chloride, P 101 98 - 107 mmol/L 02/27/2023 9:05 AM CURATOR CNFL Bicarbonate, P 30(H) 22 - 29 mmol/L 02/27/2023 9:05 AM CURATOR CNFL Anion Gap, P 9 7 - 15 02/27/2023 9:05 AM CURATOR CNFL BUN (Blood Urea Nitrogen), P 17 8 - 24 mg/dL 02/27/2023 9:05 AM CURATOR CNFL Creatinine 0.96 0.74 - 1.35 mg/dL 02/27/2023 9:05 AM CURATOR CNFL Estimated GFR (eGFR) 81 >=60 mL/min/BS A 02/27/2023 9:05 AM CURATOR CNFL Comment: Estimated GFR calculated using the 2020 CKD_EPI creatinine equation. Calcium, Total, P 9.2 8.8 - 10.2 mg/dL 02/27/2023 9:05 AM CURATOR CNFL Glucose, P 133 70 - 140 mg/dL 02/27/2023 9:05 AM CURATOR CNFL Protein, Total, P 6.8 6.3 - 7.9 g/dL 02/27/2023 9:05 AM CURATOR CNFL Albumin, P 4.1 3.5 - 5.0 g/dL 02/27/2023 9:05 AM CURATOR CNFL Aspartate Aminotransferase (AST), P 21 8 - 48 U/L 02/27/2023 9:05 AM CURATOR CNFL Alkaline Phosphatase, P 71 40 - 129 U/L 02/27/2023 9:05 AM CURATOR CNFL Alanine Aminotransferase (ALT), P 19 7 - 55 U/L 02/27/2023 9:05 AM CURATOR CNFL Bilirubin, Total, P 1.0 0.0 - 1.2 mg/dL 02/27/2023 9:05 AM CURATOR CNFL Blood (Blood, Venous) 02/27/2023 8:42 AM CURATOR 02/27/2023 8:43 AM CURATOR Shahram Arnold M.D. LAB BLOOD ADD-ON [facility] [address] [place] [phone], [facility] CNFL [facility] [address] * (ABNORMAL) CBC with Differential, Blood (02/27/2023 8:42 AM CURATOR) Hemoglobin 12.5(L) 13.2 - 16.6 g/dL 02/27/2023 8:54 AM CURATOR CNFL Hematocrit 35.8(L) 38.3 - 48.6 % 02/27/2023 8:54 AM CURATOR CNFL Erythrocytes 4.12(L) 4.35 - 5.65 x10(12)/L 02/27/2023 8:54 AM CURATOR CNFL MCV 86.9 78.2 - 97.9 fL 02/27/2023 8:54 AM CURATOR CNFL RBC Distrib Width 13.0 11.8 - 14.5 % 02/27/2023 8:54 AM CURATOR CNFL Platelet Count 270 135 - 317 x10(9)/L 02/27/2023 8:54 AM CURATOR CNFL Leukocytes 8.3 3.4 - 9.6 x10(9)/L 02/27/2023 8:54 AM CURATOR CNFL Neutrophils 5.69 1.56 - 6.45 x10(9)/L 02/27/2023 8:54 AM CURATOR CNFL Lymphocytes 1.43 0.95 - 3.07 x10(9)/L 02/27/2023 8:54 AM CURATOR CNFL Monocytes 0.77 0.26 - 0.81 x10(9)/L 02/27/2023 8:54 AM CURATOR CNFL Eosinophils 0.32 0.03 - 0.48 x10(9)/L 02/27/2023 8:54 AM CURATOR CNFL Basophils 0.05 0.01 - 0.08 x10(9)/L 02/27/2023 8:54 AM CURATOR CNFL Blood (Blood, Venous) 02/27/2023 8:42 AM CURATOR 02/27/2023 8:43 AM CURATOR Shahram Arnold M.D. LAB BLOOD ADD-ON [facility] [address] [place] [address], [facility] CNFL [facility] [place] in [address] [address] documented in this encounter Visit Diagnoses Diagnosis Primary Malignant Neoplasm Of Prostate (HCC)- Primary documented in this encounter Care Teams Ecdis N Navigation Operator Relationship Specialty Start Date End Date Elsewhere, Pcp PCP - General Internal Medicine 10/22/19 documented as of this encounter
--- OUTSIDE RECORDS SUMMARY | 2023-05-30 10:23 | XMS_ITS | Encounter Summary ---
Author Name Unknown Organization [facility] Address [address] [place] [address] Care Team Providers Care Contracting Support Specialist Name Role Phone Elsewhere, Pcp Primary Care Provider Unavailabl e Encounter Details Date Type Department Care Team (Latest Contact Info) Description 12/24/2022 9:26 AM CDT - 12/24/2022 11:59 PM CDT Hospital Encounter Department of Laboratory Medicine in [address] [phone] Shahram Arnold M.D. [address] [place] [address] Primary Malignant Neoplasm Of Prostate (HCC); Other Secondary Hypertension Discharge Disposition: Home or Self Care Social [...] often do you attend chur ch or gnosticist services? Never 05/18/2022 Do you belong to any clubs o r organizations such as pentecostal groups, unions, fraternal or athletic groups, or [...] and heating? Not hard at all 05/18/2022 [facility] - [facility]ational Stress Questionnaire Answer Date [...] mg by mouth at bedtime. 0 07/27/2019 chlorthalidone (HYGROTON) 25 mg tablet Take 12.5 mg by mouth every morning. Patient takes one-half 25mg tablet daily. 0 07/19/2022 cholecalciferol, vitamin D3, 25 mcg (1,000 Unit) tablet Take 50 mcg by mouth at bedtime. Takes one 2000 Unit tablet at bedtime. 0 08/27/2021 lisinopriL (PRINIVIL,ZESTRIL) 40 mg tabletIndications:Other Secondary Hypertension [...] mouth daily. 60 tablet 3 11/22/2022 02/28/2023 calcium carbonate 1,500 mg (600 mg calcium) tablet Take 600 mg of calcium by mouth daily. 2 tablets (600 mg) plus 400 IE Vitamin D3 0 02/26/2023 documented as of this encounter Plan of Treatment Upcoming Encounters Date Type Department Care Team (Latest Contact Info) Description 05/30/2023 11:00 AM SUPERVISOR CARDING Clinical Communication Virtual Review in [place], [place] 200 [place] [address] 06/06/2023 11:15 AM SUPERVISOR CARDING Office Visit Department of Oncology in [place], [place] [address] [place] [phone] Shahram Arnold M.D. [address] [place] [phone] 06/07/2023 2:00 PM SUPERVISOR CARDING Appointment Department of Radiation Oncology in [place], [place] [address] [place] [phone] Benitez Ames M.D. [address] [place] [phone] documented as of this encounter Procedures Procedure Name Priority Date/Time Associated Diagnosis Comments CBC WITH DIFFERENTIAL, B Routine 12/24/2022 9:37 AM CDT Primary Malignant Neoplasm Of Prostate (HCC) TESTOSTERONE, TOT AND FR, S Routine 12/24/2022 9:37 AM CDT Primary Malignant Neoplasm Of Prostate (HCC) PROSTATE-SPECIFIC AG (PSA) DIAGNOSTIC, S Routine 12/24/2022 9:37 AM CDT Primary Malignant Neoplasm Of Prostate (HCC) HEMOGLOBIN A1C, B Routine 12/24/2022 9:3 7 AM CDT Primary Malignant Neoplasm Of Prostate (HCC) Other Secondary Hypertension COMPREHENSIVE METABOLIC PANEL, S/P Routine 12/24/2022 9:37 AM CDT Primary Malignant Neoplasm Of Prostate (HCC) documented in this encounter Results * (ABNORMAL) Hemoglobin A1c (12/24/2022 9:37 AM CDT) Hemoglobin A1c, B 5.9(H) 4.2 - 5.6 % 12/24/2022 9:55 AM CDT [facility] Comment: Hemoglobin A1c values of 5.7-6.4 percent indicate an increased risk for developing diabetes mellitus. In diabetic patients, HbA1c goals should be discussed with healthcare provider. Blood (Blood, Venous) 12/24/2022 9:37 AM CDT 12/24/2022 9:39 AM CDT Shahram Arnold M.D. LAB BLOOD ADD-ON [facility] [address] [place] [phone], [facility] in [address] [address] * (ABNORMAL) Testosterone, Total and Free (12/24/2022 9:37 AM CDT) Testosterone, Free, S <0.13(L) 3.08 - 11.3 ng/dL 12/30/2022 9:22 AM CDT [facility] Comment: ----ADDITIONAL INFORMATION---- This test was developed and its performance characteristics determined by [facility] in a manner consistent with CLIA requirements. This test has not been cleared or approved by the U.S. Food and Drug Administration. Testosterone, Total by Mass Spectrometry, Serum <7.0(L) 240 - 950 ng/dL 12/28/2022 12:18 AM CDT [facility] Comment: ----ADDITIONAL INFORMATION---- Testing performed by Liquid Chromatography-Tandem Mass Spectrometry (LC-MS/MS). This test was developed and its performance characteristics determined by [facility] in a manner consistent with CLIA requirements. This test has not been cleared or approved by the U.S. Food and Drug Administration. Blood (Blood, Venous) 12/24/2022 9:37 AM CDT 12/25/2022 7:50 AM CDT Shahram Arnold M.D. LAB BLOOD NON ADD-O N Performing Organization Address [facility] Co de Phone Number [facility] [address] [place], [place] [phone] [place] [address] [place] [facility] [place] [address] * PSA (Prostate-Specific Antigen), Diagnostic (12/24/2022 9:37 AM CDT) Prostate-Specific Ag <0.10 <=6.5 ng/mL 12/24/2022 1:11 PM CDT [facility] Comment: ----ADDITIONAL INFORMATION---- The testing method is an electrochemiluminescence assay manufactured by [employer] and performed on the Modular or Jessie system. Values obtained with different assay methods or kits may be different and cannot be used interchangeably. Test results cannot be interpreted as absolute evidence for the presence or absence of malignant disease. Blood (Blood, Venous) 12/24/2022 9:37 AM CDT 12/24/2022 12:33 PM CDT Shahram Arnold M.D. LAB BLOOD ADD-ON Performing Organization Address [facility]/ZIP Co de Phone Number [facility] [address] [place] [address], [facility] in [place] [address], [place] [phone] * (ABNORMAL) Comprehensive Metabolic Panel (12/24/2022 9:37 AM CDT) Potassium, P 3.0(L) 3.6 - 5.2 mmol/L 12/24/2022 10:02 AM CDT [facility] Sodium, P 143 135 - 145 mmol/L 12/24/2022 10:02 AM CDT [facility] Chloride, P 101 98 - 107 mmol/L 12/24/2022 10:02 AM CDT [facility] Bicarbonate, P 31(H) 22 - 29 mmol/L 12/24/2022 10:02 AM CDT [facility] Anion Gap, P 11 7 - 15 12/24/2022 10:02 AM CDT [facility] BUN (Blood Urea Nitrogen), P 15 8 - 24 mg/dL 12/24/2022 10:02 AM CDT [facility] Creatinine 1.05 0.74 - 1.35 mg/dL 12/24/2022 10:02 AM CDT [facility] Estimated GFR (eGFR) 74 >=60 mL/min/BS A 12/24/2022 10:02 AM CDT [facility] Comment: Estimated GFR calculated using the 2020 CKD_EPI creatinine equation. Calcium, Total, P 9.4 8.8 - 10.2 mg/dL 12/24/2022 10:02 AM CDT [facility] Glucose, P 127 70 - 140 mg/dL 12/24/2022 10:02 AM CDT [facility] Protein, Total, P 6.7 6.3 - 7.9 g/dL 12/24/2022 10:02 AM CDT [facility] Albumin, P 3.9 3.5 - 5.0 g/dL 12/24/2022 10:02 AM CDT [facility] Aspartate Aminotransferase (AST), P 19 8 - 48 U/L 12/24/2022 10:02 AM CDT [facility] Alkaline Phosphatase, P 70 40 - 129 U/L 12/24/2022 10:02 AM CDT [facility] Alanine Aminotransferase (ALT), P 18 7 - 55 U/L 12/24/2022 10:02 AM CDT [facility] Bilirubin, Total, P 0.9 <=1.2 mg/dL 12/24/2022 10:02 AM CDT [facility] Blood (Blood, Venous) 12/24/2022 9:37 AM CDT 12/24/2022 9:39 AM CDT Shahram Arnold M.D. LAB BLOOD ADD-ON [facility] [address] [place] [address], [facility] [place] [address] * (ABNORMAL) CBC with Differential, Blood (12/24/2022 9:37 AM CDT) Hemoglobin 12.7(L) 13.2 - 16.6 g/dL 12/24/2022 9:44 AM CDT [facility] Hematocrit 36.1(L) 38.3 - 48.6 % 12/24/2022 9:44 AM CDT [facility] Erythrocytes 4.22(L) 4.35 - 5.65 x10(12)/L 12/24/2022 9:44 AM CDT [facility] MCV 85.5 78.2 - 97.9 fL 12/24/2022 9:44 AM CDT [facility] RBC Distrib Width 13.0 11.8 - 14.5 % 12/24/2022 9:44 AM CDT [facility] Platelet Count 217 135 - 317 x10(9)/L 12/24/2022 9:44 AM CDT [facility] Leukocytes 5.4 3.4 - 9.6 x10(9)/L 12/24/2022 9:44 AM CDT [facility] Neutrophils 3.48 1.56 - 6.45 x10(9)/L 12/24/2022 9:44 AM CDT [facility] Lymphocytes 1.05 0.95 - 3.07 x10(9)/L 12/24/2022 9:44 AM CDT [facility] Monocytes 0.48 0.26 - 0.81 x10(9)/L 12/24/2022 9:44 AM CDT [facility] Eosinophils 0.31 0.03 - 0.48 x10(9)/L 12/24/2022 9:44 AM CDT [facility] Basophils <0.04 0.01 - 0.08 x10(9)/L 12/24/2022 9:44 AM CDT [facility] Blood (Blood, Venous) 12/24/2022 9:37 AM CDT 12/24/2022 9:39 AM CDT Shahram Arnold M.D. LAB BLOOD ADD-ON [facility] [address] [place] [address], [facility] CN[facility] in [address] [address] documented in this encounter Visit Diagnoses Diagnosis Primary Malignant Neoplasm Of Prostate (HCC) Other Secondary Hypertension documented in this encounter Care Teams Contracting Support Specialist Relationship Specialty Start Date End Date Elsewhere, Pcp PCP - General Internal Medicine 10/22/19 documented as of this encounter
--- OUTSIDE RECORDS SUMMARY | 2023-05-30 10:23 | XMS_ITS | Encounter Summary ---
Author Name Unknown Organization [facility] Address [address] [place] [address] Care Team Providers Care Machine Wood Sander Name Role Phone Elsewhere, Pcp Primary Care Provider Unavailabl e Encounter Details Date Type Department Care Team (Latest Contact Info) Description 05/17/2023 11:00 AM SENIOR NETWORK ADMINISTRATOR Clinical Communication Virtual Review in [place], [place] [address] [place] [address] Social History Tobacco Use Types Packs/Day Years [...] often do you attend chur ch or scientologist services? Never 05/18/2022 Do you belong to any clubs o r organizations such as jew groups, unions, fraternal or athletic groups, or [...] and heating? Not hard at all 05/18/2022 [facility] - Occupational Stress [...] money to buy more. Never true 05/18/19 Within the past 12 months, t he [...] place to sleep or slept in a mcc (including now)? No 05/18/2022 Nutrition Answer Date [...] (Latest Contact Info) Description 05/30/2023 11:00 AM SENIOR NETWORK ADMINISTRATOR Clinical Communication Virtual Review in [place], [place] [address] [place] [address] 06/06/2023 11:15 AM SENIOR NETWORK ADMINISTRATOR Office Visit Department of Oncology in [place], [place] [address] [place] [phone] Shahram Arnold M.D. [address] [place] [phone] 06/07/2023 2:00 PM SENIOR NETWORK ADMINISTRATOR Appointment Department of Radiation Oncology in [address] [phone] Benitez Ames M.D. [address] [place] [address] documented as of this encounter Visit Diagnoses Not on filedocumented in this encounter Care Teams Machine Wood Sander Relationship Specialty Start Date End Date Elsewhere, Pcp PCP - General Internal Medicine 10/22/19 documented as of this encounter
--- OUTSIDE RECORDS SUMMARY | 2023-05-30 10:23 | XMS_ITS | Encounter Summary ---
Author Name Unknown Organization [facility] Address [address] [place] [address] Care Team Providers Care Wood Carver Hand Name Role Phone Elsewhere, Pcp Primary Care Provider Unavailabl e Encounter Details Date Type Department Care Team (Late st Contact Info) Description 12/31/2022 Orders Only Department of Oncology in [place], [place] [address] [place] [phone] Shahram Arnold M.D. [address] [place] [phone] Social History Tobacco Use Types Packs/Day Years [...] often do you attend chur ch or mormonism services? Never 05/18/2022 Do you belong to any clubs o r organizations such as mormonism groups, unions, fraternal or athletic groups, or [...] and heating? Not hard at all 05/18/2022 [facility] - [...] place to sleep or slept in a custodial (including now)? No 05/18/2022 Nutrition Answer Date [...] (Latest Contact Info) Description 05/30/2023 11:00 AM IMAGING ANALYST Clinical Communication Virtual Review in [place], [place] [address] [place] [address] 06/06/2023 11:15 AM IMAGING ANALYST Office Visit Department of Oncology in [place], [place] [address] [place] [phone] Shahram Arnold M.D. [address] [place] [phone] 06/07/2023 2:00 PM IMAGING ANALYST Appointment Department of Radiation Oncology in [place], [place] [address] [place] [phone] Benitez Ames M.D. [address] [place] [address] documented as of this encounter Visit Diagnoses Not on filedocumented in this encounter Care Teams Wood Carver Hand Relationship Specialty Start Date End Date Elsewhere, Pcp PCP - General Internal Medicine 10/22/19 documented as of this encounter
--- OUTSIDE RECORDS SUMMARY | 2023-05-30 10:23 | XMS_ITS | Encounter Summary ---
Author Name Unknown Organization [facility] Address [address] [place] [address] Care Team Providers Care Associate Engineer Name Role Phone Elsewhere, Pcp Primary Care Provider Unavailabl e Encounter Details Date Type Department Care Team (Latest Contact Info) Description 12/25/2022 12:00 PM CDT Clinical Communication Virtual Review in [place], [place] [address] [place] [address] Social History Tobacco Use Types Packs/Day Years [...] often do you attend chur ch or evangelical services? Never 05/18/2022 Do you belong to any clubs o r organizations such as islam groups, unions, fraternal or athletic groups, or [...] and heating? Not hard at all 05/18/2022 [facility] - Occupational [...] place to sleep or slept in a fdc (including now)? No 05/18/2022 Nutrition Answer Date [...] (Latest Contact Info) Description 05/30/2023 11:00 AM REFORMATORY ATTENDANT Clinical Communication Virtual Review in [place], [place] [address] [place] [address] 06/06/2023 11:15 AM REFORMATORY ATTENDANT Office Visit Department of Oncology in [place], [place] [address] [place] [phone] Shahram Arnold M.D. [address] [place] [phone] 06/07/2023 2:00 PM REFORMATORY ATTENDANT Appointment Department of Radiation Oncology in [place] [address] [place] [phone] Benitez Ames M.D. [address] [place] [address] documented as of this encounter Visit Diagnoses Not on filedocumented in this encounter Care Teams Associate Engineer Relationship Specialty Start Date End Date Elsewhere, Pcp PCP - General Internal Medicine 10/22/19 documented as of this encounter
--- OUTSIDE RECORDS SUMMARY | 2023-05-30 10:24 | XMS_ITS | Encounter Summary ---
Author Name Unknown Organization [facility] Address [address] [place] [address] Care Team Providers Care Railroad Detective Name Role Phone Elsewhere, Pcp Primary Care Provider Unavailabl e Reason for Visit * Reason Onset Date Comments Pre-visit Intake 09/21/2022 Encounter Details Date Type Department Care Team (Latest Contact Info) Description 09/21/2022 11:45 AM CDT Clinical Communication Virtual Review in [place], [place] [address] [place] [address] Pre-visit Intake Social History Tobacco Use Types Packs/Day Years [...] often do you attend chur ch or roman catholic services? Never 05/18/2022 Do you belong to any clubs o r organizations such as buddhist groups, unions, fraternal or athletic groups, or [...] and heating? Not hard at all 05/18/2022 [facility] - Occupational [...] (Latest Contact Info) Description 05/30/2023 11:00 AM ENVIRONMENTAL MONITORING TECHNICIAN Clinical Communication Virtual Review in [place], [place] [address] [place] [address] 06/06/2023 11:15 AM ENVIRONMENTAL MONITORING TECHNICIAN Office Visit Department of Oncology in [place], [place] [address] [place] [phone] Shahram Arnold M.D. [address] [place] [phone] 06/07/2023 2:00 PM ENVIRONMENTAL MONITORING TECHNICIAN Appointment Department of Radiation Oncology in [place], [place] [address] [place] [phone] Benitez Ames M.D. [address] [place] [address] documented as of this encounter Visit Diagnoses Not on filedocumented in this encounter Care Teams Railroad Detective Relationship Specialty Start Date End Date Elsewhere, Pcp PCP - General Internal Medicine 10/22/19 documented as of this encounter
--- OUTSIDE RECORDS SUMMARY | 2023-05-30 10:24 | XMS_ITS | Encounter Summary ---
Author Name Unknown Organization [facility] Address [address] [place] [address] Care Team Providers Care Hse Advisor Name Role Phone Elsewhere, Pcp Primary Care Provider Unavailabl e Reason for Visit * Reason Comments Hernia Left Inguinal Hernia Consult, Scrotal Pain * Outpatient (Routine) - Closed Specialty Diagnoses / Procedures Referred By Alpa t Referred To Contact General Surgery Diagnoses Pain Groin Hernia Inguinal Left Rena Kee APRN, C.N.P., D.N.P. [address] [place] [phone] [facility] Region Referral ID Status Reason Start Date Expiration Date Visits Re quested Visits Authorized [id number] Closed 06/15/2022 06/15/2023 1 1 Encounter Details Date Type Department Care Team (Latest Contact Info) Description 08/01/2022 1:30 PM CDT Comprehensive Visit Department of General Surgery in [address] [phone] Clinton Messer M.D. [address] [place] [phone] Pain Groin; Hernia Inguinal Left Social History Tobacco Use Types Packs/Day Years [...] week 05/18/2022 How often do you attend [facility] or taoism services? Never 05/18/2022 Do you belong to any clubs o r organizations such as episcopal groups, unions, fraternal or athletic groups, or [...] and heating? Not hard at all 05/18/2022 [facility] - Occupational Stress Questionnaire Answer Date [...] place to sleep or slept in a usp (including now)? No 05/18/2022 Nutrition Answer Date [...] Sign Reading Time Taken Comments Blood Pressure 169/90 08/01/2022 1:09 PM CDT Pulse 97 08/01/2022 1:09 PM CDT Temperature 36.7 ??C (98.1 ??F) 08/01/2022 1:09 PM CD T Respiratory Rate - - Oxygen Saturation - - Inhaled Oxygen Concentration - - Weight 80.5 kg (177 lb 7.5 oz) 08/01/2022 1:09 P M CDT Height 168.5 cm (5' 6.34) 08/01/2022 1:09 PM CD T Body Mass Index 28.35 08/01/2022 1:09 PM CDT documented in this encounter Consult Notes * Clinton Messer M.D. - 08/01/2022 1:30 PM CDT SUBJECTIVE CHIEF COMPLAINT/REASON FOR VISIT Groin pain and left inguinal hernia HISTORY OF PRESENT ILLNESS Ruben Hansen is a 77-year-old gentleman who was referred for 2 distinct complaints, the 1st as a left-sided groin discomfort. The other is scrotal discomfort. The left-sided groin discomfort started about 6 weeks ago. It is hard for him to describe the nature of this discomfort. He rates his pain less than 1/10 in severity. It does seem to increase with activities but it does not prevent him from doing his activities of daily living or his hobbies. He has never had a bulge or obstructive symptoms in the left groin. The same discomfort will occasionally occur in the right groin as well. Ithas been going on for at least a year (it started at the time of a trans perineal prostate biopsy for prostate cancer). He rates this pain a of 10 in severity. It is especially sensitive to touch. Heunderwent imaging recently. MEDICAL HISTORY 1. Prostate cancer treated with radiation and androgen depletion 2. Hypertension 3. Kidney stones SURGICAL HISTORY 1. Open left inguinal hernia repair 2. Kidney stone removal SOCIAL HISTORY He does not smoke cigarettes. He drinks 4 to 8 oz of hard liquor per day. He denies illicit drug use. FAMILY HISTORY His father of cancer. He also had hyperlipidemia. His mother had dementia. REVIEW OF SYSTEMS A 10-point review of systems was discussed with the patient and is negative except as noted in the history of present illness. OBJECTIVE VITAL SIGNS Blood pressure (!) 169/90, pulse 97, temperature 36.7 ??C, temperature source Temporal, height 168.5 cm, weight 80.5 kg. PHYSICAL EXAMINATION General: This is a pleasant male in no acute distress. Eyes: Sclerae anicteric. Conjunctivae pink and moist. Head, Ears, Eyes, Nose, & Throat: External auditory canals are normal. The patient's hearing isgrossly normal bilaterally. Oropharyngeal exam not performed due to masking. Neck: No jugular venous distention. Thyroid is not enlarged, nontender, and without masses. Lymphatics: No cervical or supraclavicular adenopathy. Chest: Clear to auscultation bilaterally. No rales, wheezes, or rhonchi. Good air entry throughout without accessory muscle use. Cardiovascular: S1, S2. Regular rate and rhythm. No murmurs, rubs, or gallops. Abdomen: Soft and nontender. No hepatomegaly. No splenomegaly. No masses. No hernias. Groin: Gentle examination of the right groin reveals no hernia with cough or Valsalva. Touching theright scrotal area does cause him significant discomfort. The right testicle is descended and without obvious masses. Genital examination of the left groin reveals no palpable hernia with cough or Valsalva. He is a well-healed scar from his prior inguinal hernia repair at age 15. He has similar, increased sensitivity of the left scrotal area with touch. The left testicle is descended and without obvious masses. Musculoskeletal: 5/5 strength in the right upper extremity. 5/5 strength in the left upper extremity. 5/5 strength in the right lower extremity. 5/5 strength in the left lower extremity. Neurologic: Normal gait and station. Psychiatric: The patient is alert and oriented to person, place, and time. His mood is euthymic without evidence of anxiety, depression, or agitation. DIAGNOSTICS Bilateral inguinal ultrasound, June 13, 2022: COMPARISON: None FINDINGS: Small fat-containing left inguinal hernia. No right sided hernia. IMPRESSION: Small fat-containing left inguinal hernia. Scrotal ultrasound with Doppler, June 13, 2022: FINDINGS: Right testicle: Normal echotexture. Age-related atrophy. No focal mass. Normal arterial blood flow on color and spectral Doppler. Right testis volume: 3.7 ml Epididymis: Normal. No mass or hyperemia. Other: No hydrocele. No varicocele. Left testicle: Normal echotexture. Age-related atrophy. No focal mass. Normal arterial blood flow on color and spectral Doppler. Left testis volume: 2.6 ml Epididymis: Normal. No mass or hyperemia. Other: No hydrocele. No varicocele. IMPRESSION: No abnormalities identified in the scrotum. ASSESSMENT / PLAN Groin pain and possible left inguinal hernia Mr. Hansen is a 77-year-old gentleman with some mild left groin discomfort. He also has similar discomfort on the right as well. His other complaint is bilateral scrotal discomfort, left more than right. On physical exam, I can not detect a hernia in either groin. He does not have any pain with palpation of the inguinal canal. He does have tenderness of the scrotal area with touch, but this canbe overcome with gentle palpation of the area. I reviewed his ultrasound and it shows some sliding tissue in the left inguinal canal. This tissue was small and may represent some preperitoneal fat sliding in the canal with Valsalva. This may not be a true inguinal hernia. Given his minimal symptomsin the left groin, I do not think repair of this hernia is warranted. Because of his prior open repair in the past, he is at higher risk for damage of surrounding structures. He is also a very poor candidate for a laparoscopic/robotic approach as these tissue planes had been obliterated by his prostate radiation. I discussed the signs and symptoms of hernia incarceration/strangulation. If these occur, he should proceed to the emergency room for further evaluation. He is going to visit with our colleagues in Urology to discuss his scrotal discomfort. Given the small size of the hernia on imagin g and the lack of physical exam correlation, I do not think this small hernias causing any scrotal discomfort whatsoever. If he starts to notice a bulge in the left groin or starts to have more left groin pain, he should contact us for a follow-up visit. Additional imaging such as a CT scan may be useful given his prior surgery in this region. The patient is comfortable with this plan. All questions were answered to the patient's satisfaction. Thank you for allowing me to participate in the care of this patient. If there are any further concerns or questions please do not hesitate to contact my office. Clinton Messer MD documented in this encounter Plan of Treatment Upcoming Encounters Date Type Department Care Team (Latest Contact Info) Description 05/30/2023 11:00 AM EDUCATIONAL RESOURCE CENTER TEACHER Clinical Communication Virtual Review in [place], [place] 200 [place] [address] 06/06/2023 11:15 AM EDUCATIONAL RESOURCE CENTER TEACHER Office Visit Department of Oncology in [place], [place] [address] [place] [phone] Shahram Arnold M.D. [address] [place] [phone] 06/07/2023 2:00 PM EDUCATIONAL RESOURCE CENTER TEACHER Appointment Department of Radiation Oncology in [address] [phone] Benitez Ames M.D. [address] [place] [phone] documented as of this encounter Visit Diagnoses Diagnosis Pain Groin Hernia Inguinal Left documented in this encounter Care Teams Hse Advisor Relationship Specialty Start Date End Date Elsewhere, Pcp PCP - General Internal Medicine 10/22/19 documented as of this encounter
--- OUTSIDE RECORDS SUMMARY | 2023-05-30 10:24 | XMS_ITS | Encounter Summary ---
Author Name Unknown Organization [facility] Address [address] [place] [address] Care Team Providers Care Beveller Operator Name Role Phone Elsewhere, Pcp Primary Care Provider Unavailabl e Encounter Details Date Type Department Care Team (Late st Contact Info) Description 08/27/2022 Orders Only Department of Radiation Oncology in [place], [place] [address] [place] [phone] Rena Kee APRN, C.N.P., D.N.P. [address] [place] [phone] Primary Malignant Neoplasm Of Prostate (HCC) (Primary [...] often do you attend chur ch or baptist services? Never 05/18/2022 Do you belong to any clubs o r organizations such as christianity groups, unions, fraternal or athletic groups, or [...] and heating? Not hard at all 05/18/2022 [facility] of Occupat ional Health - [...] place to sleep or slept in a jail (including now)? No 05/18/2022 Nutrition Answer Date [...] (Latest Contact Info) Description 05/30/2023 11:00 AM UPPER TIER Clinical Communication Virtual Review in [place], [place] 200 [place] [address] 06/06/2023 11:15 AM UPPER TIER Office Visit Department of Oncology in [place], [place] [address] [place] [phone] Shahram Arnold M.D. 200 [place] [phone] 06/07/2023 2:00 PM UPPER TIER Appointment Department of Radiation Oncology in [place], [place] [address] [place] [phone] Benitez Ames M.D. 200 [place] [phone] documented as of this encounter Visit Diagnoses Diagnosis Primary Malignant Neoplasm Of Prostate (HCC)- Primary documented in this encounter Care Teams Beveller Operator Relationship Specialty Start Date End Date Elsewhere, Pcp PCP - General Internal Medicine 10/22/19 documented as of this encounter
--- OUTSIDE RECORDS SUMMARY | 2023-05-30 10:24 | XMS_ITS | Encounter Summary ---
Author Name Unknown Organization [facility] Address [address] [place] [address] Care Team Providers Care Literacy Coordinator Name Role Phone Elsewhere, Pcp Primary Care Provider Unavailabl e Encounter Details Date Type Department Care Team (Late st Contact Info) Description 10/22/2022 Orders Only Department of Oncology in [place], [place] [address] [place] [phone] Shahram Arnold M.D. [address] [place] [phone] Primary Malignant Neoplasm Of Prostate (HCC) (Primary Dx); Other Secondary Hypertension Social History Tobacco Use Types Packs/Day Years [...] often do you attend chur ch or church services? Never 05/18/2022 Do you belong to any clubs o r organizations such as congregation groups, unions, fraternal or athletic groups, or [...] and heating? Not hard at all 05/18/2022 [facility] of Occupat ional Health - Occupational Stress [...] place to sleep or slept in a halfway (including now)? No 05/18/2022 Nutrition Answer Date [...] (Latest Contact Info) Description 05/30/2023 11:00 AM PHOTORADIO OPERATOR Clinical Communication Virtual Review in [place], [place] 200 [place] [address] 06/06/2023 11:15 AM PHOTORADIO OPERATOR Office Visit Department of Oncology in [place], [place] [address] [place] [phone] Shahram Arnold M.D. [address] [place] [phone] 06/07/2023 2:00 PM PHOTORADIO OPERATOR Appointment Department of Radiation Oncology in [place], [place] [address] [place] [phone] Benitez Ames M.D. [address] [place] [phone] documented as of this encounter Results * (ABNORMAL) Hemoglobin A1c (12/24/2022 9:37 AM CDT) Hemoglobin A1c, B 5.9(H) 4.2 - 5.6 % 12/24/2022 9:55 AM CDT [facility] Comment: Hemoglobin A1c values of 5.7-6.4 percent indicate an increased risk for developing diabetes mellitus. In diabetic patients, HbA1c goals should be discussed with healthcare provider. Blood (Blood, Venous) 12/24/2022 9:37 AM CDT 12/24/2022 9:39 AM CDT Shahram Arnold M.D. LAB BLOOD ADD-ON [facility] [address] [place] [phone], [facility] in [address] [address] documented in this encounter Visit Diagnoses Diagnosis Primary Malignant Neoplasm Of Prostate (HCC)- Primary Other Secondary Hypertension documented in this encounter Care Teams Literacy Coordinator Relationship Specialty Start Date End Date Elsewhere, Pcp PCP - General Internal Medicine 10/22/19 documented as of this encounter
--- OUTSIDE RECORDS SUMMARY | 2023-05-30 10:24 | XMS_ITS | Encounter Summary ---
Author Name Unknown Organization [facility] Address [address] [place] [address] Care Team Providers Care Long Term Acute Care Registered Nurse Name Role Phone Elsewhere, Pcp Primary Care Provider Unavailabl e Encounter Details Date Type Department Care Team (Late st Contact Info) Description 09/13/2022 Orders Only Division of Hematology in [place], [place] [address] [place] [phone] Shahram Arnold M.D. [address] [place] [phone] Social History Tobacco Use Types Packs/Day Years [...] any clubs o r organizations such as latter-day groups, unions, fraternal or athletic groups, or [...] and heating? Not hard at all 05/18/2022 [facility] of Occupat ional Health - Occupational Stress [...] (Latest Contact Info) Description 05/30/2023 11:00 AM ONLINE MEDIA BUYER Clinical Communication Virtual Review in [place], [place] 200 [place] [address] 06/06/2023 11:15 AM ONLINE MEDIA BUYER Office Visit Department of Oncology in [place], [place] [address] [place] [phone] Shahram Arnold M.D. [address] [place] [phone] 06/07/2023 2:00 PM ONLINE MEDIA BUYER Appointment Department of Radiation Oncology in [place], [place] [address] [place] [phone] Benitez Ames M.D. [address] [place] [address] documented as of this encounter Visit Diagnoses Not on filedocumented in this encounter Care Teams Long Term Acute Care Registered Nurse Relationship Specialty Start Date End Date Elsewhere, Pcp PCP - General Internal Medicine 10/22/19 documented as of this encounter
--- OUTSIDE RECORDS SUMMARY | 2023-05-30 10:24 | XMS_ITS | Encounter Summary ---
Author Name Unknown Organization [facility] Address [address] [place] [address] Care Team Providers Care Linderman Operator Name Role Phone Elsewhere, Pcp Primary Care Provider Unavailabl e Reason for Referral * Outpatient (Routine) - Closed Specialty Diagnoses / Procedures Referred By Alpa mijares Referred To Contact Oncology Shahram Arnold M.D. [address] [place] [phone] [facility] Referral ID Status Reason Start Date Expiration Date Visits Re quested Visits Authorized [id number] Closed 09/25/2022 09/24/2025 1 1 Reason for Visit * Outpatient (Routine) - Closed Specialty Diagnoses / Procedures Referred By Alpa mijares Referred To Contact Oncology Shahram Arnold M.D. [address] [place] [phone] [facility] Referral ID Status Reason Start Date Expiration Date Visits Re quested Visits Authorized [id number] Closed 06/18/2022 06/17/2025 1 1 Encounter Details Date Type Department Care Team ([facility] st Contact Info) Description 09/25/2022 3:00 PM CDT Office Visit Department of Oncology in [place], [place] [address] [place] [phone] Shahram Arnold M.D. [address] [place] [phone] Primary Malignant Neoplasm Of Prostate (HCC) (Primary [...] any clubs o r organizations such as mu-ism groups, unions, fraternal or athletic groups, or [...] and heating? Not hard at all 05/18/2022 [facility] of Occupat ional Health - Occupational Stress [...] Sign Reading Time Taken Comments Blood Pressure 195/99 09/25/2022 2:58 PM CDT Pulse 81 09/25/2022 2:58 PM CDT Temperature 36.7 ??C (98.1 ??F) 09/25/2022 2:58 PM CD T Respiratory Rate 16 09/25/2022 2:58 PM CDT Oxygen Saturation 98% 09/25/2022 2:58 PM CDT Inhaled Oxygen Concentration - - Weight 80.9 kg (178 lb 5.6 oz) 09/25/2022 2:58 P M CDT Height 167.5 cm (5' 5.95) 09/25/2022 2:58 PM CD T Body Mass Index 28.83 09/25/2022 2:58 PM CDT documented in this encounter Progress Notes * Shahram Paulino M.D. - 09/25/2022 3:00 PM CDT SUBJECTIVE CHIEF COMPLAINT / REASON FOR VISIT Ruben Hansen is a 77 y.o. male who presents for follow up of prostate adenocarcinoma. [facility] Primary Staff Technical Project Coordinator: Dr. Tavera Primary Fellow: Dr. Paulino HISTORY OF PRESENT ILLNESS Oncology History Overview Note March 2021: PSA 4, Yolyn 9, MRI showing T4N) disease (invasion of [...] biopsy: 6/6 left prostate region of interest Yolyn 4+5 (75% of specimen), extraprostatic extension and perineural invasion present; 6 benign cores right. Prostate examination showed leftinduration. 03/07/2021 Clinical Stage Staging form: Prostate, AJCC 8th Edition - Clinical stage from 03/07/2021: Stage IIIC (cT4, cN0, cM0, PSA: 4, Grade Group: 5) Histopathologic type: Adenocarcinoma, NOS Stage prefix: Initial diagnosis Prostate specific antigen (PSA) range: Less than 10 Yolyn primary pattern: 4 Basil secondary pattern: 5 Histologic grading system: 5 grade system Number of biopsy cores examined: 12 Number of biopsy cores positive: 6 Location of positive needle core biopsies: One side 04/17/2021 - 05/22/2021 Radiation Therapy Radiation Therapy Treatment Details (04/17/2021 - 05/22/2021) Site: Prostate Technique: IMRT Goal: Curative Planned Treatment Start Date: 04/17/2021 INTERVAL HISTORY Mr. Hansen presents with his fiaddiee for follow up today. Since our last visit, he met with GNS and URO regarding scrotal discomfort and possible left inguinal hernia, which is being conservativelymanaged for now. He reports having a toothache for the last couple days, and I instructed him to see his dentist. He has recently been started on chlorthalidone for hypertension - his blood pressure today is markedly high, but he shows me a home monitor where is systolic has been consistently in the 130s-140s aside from today. Otherwise he reports no major issues. He and his jessie were recently in [place], as his jessie's daughter is unfortunately suffering from end-stage liver disease. She is being evaluated for transplant next month. 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 As he is otherwise been tolerating this therapy well, we will plan to continue the current dosing. We will plan to see him back for follow up in 3 months. Shahram Paulino M.D. Hematology/Oncology PGY-4 documented in this encounter Plan of Treatment Upcoming Encounters Date Type Department Care Team (Latest Contact Info) Description 05/30/2023 11:00 AM LEAD GENERATION MARKETING MANAGER Clinical Communication Virtual Review in [place], [place] 200 [place] [address] 06/06/2023 11:15 AM LEAD GENERATION MARKETING MANAGER Office Visit Department of Oncology in [place], [place] [address] [place] [phone] Shahram Arnold M.D. [address] [place] [phone] 06/07/2023 2:00 PM LEAD GENERATION MARKETING MANAGER Appointment Department of Radiation Oncology in [address] [phone] Benitez Ames M.D. [address] [place] [phone] Scheduled Referrals Name Type Priority Associated Diagnoses Orde r Schedule Oncology office visit (clinic) General; Prostate Outpatient Referral Routine Expected: 12/26/2022 (Approximate), Expires: 12/27/2023 documented as of this encounter Results * (ABNORMAL) Testosterone, Total and Free (12/24/2022 9:37 AM CDT) Testosterone, Free, S <0.13(L) 3.08 - 11.3 ng/dL 12/30/2022 9:22 AM CDT [facility] Comment: ----ADDITIONAL INFORMATION---- This test was developed and its performance characteristics determined by [facility] in a manner consistent with CLIA requirements. This test has not been cleared or approved by the U.S. Food and Drug Administration. Testosterone, Total by Mass Spectrometry, Serum <7.0(L) 240 - 950 ng/dL 12/28/2022 12:18 AM CDT [facility] Comment: ----ADDITIONAL INFORMATION---- Testing performed by Liquid Chromatography-Tandem Mass Spectrometry (LC-MS/MS). This test was developed and its performance characteristics determined by [facility] in a manner consistent with CLIA requirements. This test has not been cleared or approved by the U.S. Food and Drug Administration. Blood (Blood, Venous) 12/24/2022 9:37 AM CDT 12/25/2022 7:50 AM CDT Shahram Arnold M.D. LAB BLOOD NON ADD-O N [facility] [address] [place] [address] [facility] [address] [place] [address] [place] [address] * PSA (Prostate-Specific Antigen), Diagnostic (12/24/2022 9:37 [...] CDT Shahram Arnold M.D. LAB BLOOD ADD-ON [facility] [address] [address], [place] [facility] [place] [address] [phone] * (ABNORMAL) Comprehensive Metabolic Panel (12/24/2022 9:37 AM CDT) [facility] Potassium, P 3.0(L) 3.6 - 5.2 mmol/L [...] CDT Shahram Arnold M.D. LAB BLOOD ADD-ON [facility] [address] [place] [address], [facility] CNFL [facility] [place] [address] * (ABNORMAL) CBC with Differential, Blood (12/24/2022 [...] CDT Shahram Arnold M.D. LAB BLOOD ADD-ON [facility] [address] [place] [address], [facility] CNFL [facility] in [address] [address] documented in this encounter Visit Diagnoses Diagnosis Primary Malignant Neoplasm Of Prostate (HCC)- Primary documented in this encounter Care Teams Linderman Operator Relationship Specialty Start Date End Date Elsewhere, Pcp PCP - General Internal Medicine 10/22/19 documented as of this encounter
--- OUTSIDE RECORDS SUMMARY | 2023-05-30 10:24 | XMS_ITS | Encounter Summary ---
Author Name Unknown Organization [facility] Address [address] [place] [address] Care Team Providers Care Consultant Nurse Name Role Phone Elsewhere, Pcp Primary Care Provider Unavailabl e Encounter Details Date Type Department Care Team (Latest Contact Info) Description 09/24/2022 11:24 AM CDT - 09/24/2022 11:59 PM CDT Hospital Encounter Department of Laboratory Medicine in [address] [phone] Shahram Arnold M.D. [address] [place] [address] Anemia; Primary Malignant Neoplasm Of Prostate (HCC) Discharge [...] often do you attend chur ch or caodaism services? Never 05/18/2022 Do you belong to any clubs o r organizations such as jainism groups, unions, fraternal or athletic groups, or [...] and heating? Not hard at all 05/18/2022 [facility] of Occupat ional Health - Occupational Stress [...] place to sleep or slept in a long-term (including now)? No 05/18/2022 Nutrition Answer Date [...] 2 tablets (.8mg) 0 09/01/2019 abiraterone (ZYTIGA) 250 mg tabletIndications:Prima ry Malignant Neoplasm Of Prostate (HCC) Take 4 tablets (1,000 mg total) by mouth daily. Take on an empty stomach (1 hour before or 2 hours after food). 120 tablet 11 09/29/2021 09/29/2022 abiraterone (ZYTIGA) 500 mg tablet 0 07/07/2022 11/22/2022 calcium carbonate 1,500 mg (600 mg calcium) tablet Take 600 mg of calcium by mouth daily. 2 tablets (600 mg) plus 400 IE Vitamin D3 0 02/26/2023 documented as of this encounter Plan of Treatment Upcoming Encounters Date Type Department Care Team (Latest Contact Info) Description 05/30/2023 11:00 AM NURSE ORTHO Clinical Communication Virtual Review in [place], [place] 200 [place] [address] 06/06/2023 11:15 AM NURSE ORTHO Office Visit Department of Oncology in [place], [place] [address] [place] [phone] Shahram Arnold M.D. [address] [place] [phone] 06/07/2023 2:00 PM NURSE ORTHO Appointment Department of Radiation Oncology in [place], [place] [address] [place] [phone] Benitez Ames M.D. [address] [place] [phone] documented as of this encounter Procedures Procedure Name Priority Date/Time Associated Diagnosis Comments CBC WITH DIFFERENTIAL, B Routine 09/24/2022 11:31 AM CDT Anemia Primary Malignant Neoplasm Of Prostate (HCC) TESTOSTERONE, TOT AND FR, S Routine 09/24/2022 11:31 AM CDT Primary Malignant Neoplasm Of Prostate (HCC) PROSTATE-SPECIFIC AG (PSA) DIAGNOSTIC, S Routine 09/24/2022 11:31 AM CDT Primary Malignant Neoplasm Of Prostate (HCC) COMPREHENSIVE METABOLIC PANEL, S/P Routine 09/24/2022 11:31 AM CDT Primary Malignant Neoplasm Of Prostate (HCC) documented in this encounter Results * (ABNORMAL) Testosterone, Total and Free (09/24/2022 11:31 AM CDT) Testosterone, Free, S <0.13(L) 3.08 - 11.3 ng/dL 10/05/2022 2:45 PM CDT [facility] Comment: ----ADDITIONAL INFORMATION---- This test was developed and its performance characteristics determined by [facility] in a manner consistent with CLIA requirements. This test has not been cleared or approved by the U.S. Food and Drug Administration. Testosterone, Total by Mass Spectrometry, Serum <7.0(L) 240 - 950 ng/dL 10/01/2022 1:59 PM CDT [facility] Comment: ----ADDITIONAL INFORMATION---- Testing performed by Liquid Chromatography-Tandem Mass Spectrometry (LC-MS/MS). This test was developed and its performance characteristics determined by [facility] in a manner consistent with CLIA requirements. This test has not been cleared or approved by the U.S. Food and Drug Administration. Blood (Blood, Venous) 09/24/2022 11:31 AM CDT 09/25/2022 7:33 AM CDT Shahram Arnold M.D. LAB BLOOD NON ADD-O N [facility] [address] [place] [address] [facility] [address] [place] [address] [place] [address] * PSA (Prostate-Specific Antigen), Diagnostic (09/24/2022 11:31 AM CDT) Prostate-Specific Ag <0.10 <=6.5 ng/mL 09/24/2022 1:40 PM CDT [facility] Comment: ----ADDITIONAL INFORMATION---- The testing method is an electrochemiluminescence assay manufactured by [employer] and performed on the Modular or Jessie system. Values obtained with different assay methods or kits may be different and cannot be used interchangeably. Test results cannot be interpreted as absolute evidence for the presence or absence of malignant disease. Blood (Blood, Venous) 09/24/2022 11:31 AM CDT 09/24/2022 12:55 PM CDT Shahram Arnold M.D. LAB BLOOD ADD-ON Performing Organization Address City/[facility] Co de Phone Number [facility] [address] [place] [address], [facility] [place] [address] [place] [address] * (ABNORMAL) Comprehensive Metabolic Panel (09/24/2022 11:31 AM CDT) Potassium, P 3.6 3.6 - 5.2 mmol/L 09/24/2022 11:58 AM CDT [facility] Sodium, P 142 135 - 145 mmol/L 09/24/2022 11:58 AM CDT [facility] Chloride, P 100 98 - 107 mmol/L 09/24/2022 11:58 AM CDT [facility] Bicarbonate, P 33(H) 22 - 29 mmol/L 09/24/2022 11:58 AM CDT [facility] Anion Gap, P 9 7 - 15 09/24/2022 11:58 AM CDT [facility] BUN (Blood Urea Nitrogen), P 19 8 - 24 mg/dL 09/24/2022 11:58 AM CDT [facility] Creatinine 1.22 0.74 - 1.35 mg/dL 09/24/2022 11:58 AM CDT [facility] Estimated GFR (eGFR) 61 >=60 mL/min/BS A 09/24/2022 11:58 AM CDT [facility] Comment: Estimated GFR calculated using the 2020 CKD_EPI creatinine equation. Calcium, Total, P 9.7 8.8 - 10.2 mg/dL 09/24/2022 11:58 AM CDT [facility] Glucose, P 125 70 - 140 mg/dL 09/24/2022 11:58 AM CDT [facility] Protein, Total, P 6.8 6.3 - 7.9 g/dL 09/24/2022 11:58 AM CDT [facility] Albumin, P 4.0 3.5 - 5.0 g/dL 09/24/2022 11:58 AM CDT [facility] Aspartate Aminotransferase (AST), P 23 8 - 48 U/L 09/24/2022 11:58 AM CDT [facility] Alkaline Phosphatase, P 81 40 - 129 U/L 09/24/2022 11:58 AM CDT [facility] Alanine Aminotransferase (ALT), P 20 7 - 55 U/L 09/24/2022 11:58 AM CDT [facility] Bilirubin, Total, P 1.2 <=1.2 mg/dL 09/24/2022 11:58 AM CDT [facility] Blood (Blood, Venous) 09/24/2022 11:31 AM CDT 09/24/2022 11:32 AM CDT Shahram Arnold M.D. LAB BLOOD ADD-ON [facility] [address] [place] [phone], [facility] in [address] [address] * (ABNORMAL) CBC with Differential, Blood (09/24/2022 11:31 AM CDT) Hemoglobin 12.9(L) 13.2 - 16.6 g/dL 09/24/2022 11:43 AM CDT [facility] Hematocrit 37.3(L) 38.3 - 48.6 % 09/24/2022 11:43 AM CDT [facility] Erythrocytes 4.32(L) 4.35 - 5.65 x10(12)/L 09/24/2022 11:43 AM CDT [facility] MCV 86.3 78.2 - 97.9 fL 09/24/2022 11:43 AM CDT [facility] RBC Distrib Width 13.2 11.8 - 14.5 % 09/24/2022 11:43 AM CDT [facility] Platelet Count 256 135 - 317 x10(9)/L 09/24/2022 11:43 AM CDT [facility] Leukocytes 6.4 3.4 - 9.6 x10(9)/L 09/24/2022 11:43 AM CDT [facility] Neutrophils 4.30 1.56 - 6.45 x10(9)/L 09/24/2022 11:43 AM CDT [facility] Lymphocytes 1.20 0.95 - 3.07 x10(9)/L 09/24/2022 11:43 AM CDT [facility] Monocytes 0.61 0.26 - 0.81 x10(9)/L 09/24/2022 11:43 AM CDT [facility] Eosinophils 0.21 0.03 - 0.48 x10(9)/L 09/24/2022 11:43 AM CDT [facility] Basophils <0.04 0.01 - 0.08 x10(9)/L 09/24/2022 11:43 AM CDT [facility] Blood (Blood, Venous) 09/24/2022 11:31 AM CDT 09/24/2022 11:32 AM CDT Shahram Arnold M.D. LAB BLOOD ADD-ON [facility] [address] [place] [phone], [facility] in [address] [address] documented in this encounter Visit Diagnoses Diagnosis Anemia Primary Malignant Neoplasm Of Prostate (HCC) documented in this encounter Care Teams Consultant Nurse Relationship Specialty Start Date End Date Elsewhere, Pcp PCP - General Internal Medicine 10/22/19 documented as of this encounter
--- OUTSIDE RECORDS SUMMARY | 2023-05-30 10:24 | XMS_ITS | Encounter Summary ---
Author Name Unknown Organization [facility] Address [address] [place] [id number] Care Team Providers Care Blue Leather Setter Name Role Phone Elsewhere, Pcp Primary Care Provider Unavailabl e Reason for Visit * Reason Comments Nurse Visit BP Check with device * Appointment Request (Routine) - Closed Specialty Diagnoses / Procedures Referred By Alpa t Referred To Contact Family Medicine Referral ID Status Reason Start Date Expiration Date Visits Re quested Visits Authorized [id number] Closed 06/19/2022 06/19/2023 1 1 Encounter Details Date Type Department Care Team (Late st Contact Info) Description 06/19/2022 10:45 AM PRESSURIZER Nurse Only Department of Family Medicine, [facility], in [address] [phone] Shahram Arnold M.D. [address] [place] [phone] Twyla Dugan, LRyanPRyanNRyan Nurse Visit (BP Check with device ) Social History Tobacco Use Types Packs/Day Years [...] often do you attend chur ch or oriental orthodox services? Never 05/18/2022 Do you belong to [...] and heating? Not hard at all 05/18/2022 [facility] of Occupat ional Health - Occupational Stress [...] place to sleep or slept in a correction (including now)? No 05/18/2022 Nutrition Answer Date [...] as of this encounter Progress Notes * Twyla Dugan L.P.N. - 06/19/2022 10:45 AM CST Indra is seen today for a blood pressure visit with home device that did not have orders . Visit wasconducted in clinic. Today's blood pressure reading and prior two readings: BP Readings from Last 3 Encounters: 06/18/22 (!) 176/89 05/22/22 (!) 168/87 03/26/22 (!) 158/93 . Medication list was reconciled, and patient is taking their blood pressure medication as prescribed. The patient reports no acute symptoms of hypertension Select to document Home BP Device Check - in clinic: Patient brought their Omron brand/type home blood pressure monitoring device to the visit today for accuracy test. The patient's home device uses a upper arm cuff location. The left arm was used for measurement. The results were there was at least one difference of greater than 10 mmHg, the comparison is unacceptable, the device is considered inaccurate, and the recommendation was given to the patient to obtain a new blood pressure monitoringdevice or contact the hide buyer for replacement if still under warranty. The manual blood pressure readings taken during the test were as follows: 169/88 and 160/84. SURIZER documented in this encounter Plan of Treatment Upcoming Encounters Date Type Department Care Team (Latest Contact Info) Description 05/30/2023 11:00 AM PRESSURIZER Clinical Communication Virtual Review in [place], [place] 200 [place] [address] 06/06/2023 11:15 AM PRESSURIZER Office Visit Department of Oncology in [place], [place] [address] [place] [phone] Shahram Arnold M.D. [address] [place] [phone] 06/07/2023 2:00 PM PRESSURIZER Appointment Department of Radiation Oncology in [place], [place] [address] [place] [phone] Benitez Ames M.D. [address] [place] [phone] documented as of this encounter Visit Diagnoses Diagnosis Other Secondary Hypertension- Primary documented in this encounter Care Teams Blue Leather Setter Relationship Specialty Start Date End Date Elsewhere, Pcp PCP - General Internal Medicine 10/22/19 documented as of this encounter
--- OUTSIDE RECORDS SUMMARY | 2023-05-30 10:24 | XMS_ITS | Encounter Summary ---
Author Name Unknown Organization [facility] Address [address] [place] [address] Care Team Providers Care Fur Buyer Name Role Phone Elsewhere, Pcp Primary Care Provider Unavailabl e Encounter Details Date Type Department Care Team (Latest Contact Info) Description 06/19/2022 8:39 AM CLOCK REPAIR TECHNICIAN - 06/19/2022 11:59 PM CLOCK REPAIR TECHNICIAN Hospital Encounter Department of Laboratory Medicine in [address] [phone] Shahram Arnold M.D. [address] [place] [phone] Anemia; Primary Malignant Neoplasm Of Prostate (HCC) [...] often do you attend chur ch or jehovah's witness services? Never 05/18/2022 Do you belong to any clubs o r organizations such as judaism groups, unions, fraternal or athletic groups, or [...] and heating? Not hard at all 05/18/2022 [facility] - [facility]ational Stress Questionnaire Answer [...] place to sleep or slept in a nursing home (including now)? No 05/18/2022 Nutrition Answer [...] mg by mouth at bedtime. 0 07/27/2019 cholecalciferol, vitamin D3, 25 mcg (1,000 Unit) [...] after food). 120 tablet 11 09/29/2021 09/29/2022 calcium carbonate 1,500 mg (600 mg calcium) tablet Take 600 mg of calcium by mouth daily. 2 tablets (600 mg) plus 400 IE Vitamin D3 0 02/26/2023 documented as of this encounter Plan of Treatment Upcoming Encounters Date Type Department Care Team (Latest Contact Info) Description 05/30/2023 11:00 AM CLOCK REPAIR TECHNICIAN Clinical Communication Virtual Review in [place], [place] 200 [place] [address] 06/06/2023 11:15 AM CLOCK REPAIR TECHNICIAN Office Visit Department of Oncology in [place], [place] [address] [place] [phone] Shahram Arnold M.D. [address] [place] [phone] 06/07/2023 2:00 PM CLOCK REPAIR TECHNICIAN Appointment Department of Radiation Oncology in [place] [phone] [place] [phone] Benitez Ames M.D. [address] [place] [phone] documented as of this encounter Procedures Procedure Name Priority Date/Time Associated Diagnosis Comments IRON AND TOT IRON-BINDING CAPACITY, S/P Routine 06/19/2022 8:45 AM CLOCK REPAIR TECHNICIAN Anemia Primary Malignant Neoplasm Of Prostate (HCC) FOLATE, S Routine 06/19/2022 8:45 AM CLOCK REPAIR TECHNICIAN Anemia Primary Malignant Neoplasm Of Prostate (HCC) FERRITIN, S Routine 06/19/2022 8:45 AM CLOCK REPAIR TECHNICIAN Anemia Primary Malignant Neoplasm Of Prostate (HCC) VITAMIN B12 ASSAY, S Routine 06/19/2022 8:45 AM CLOCK REPAIR TECHNICIAN Anemia Primary Malignant Neoplasm Of Prostate (HCC) documented in this encounter Results * Vitamin B12 Assay (06/19/2022 8:45 AM CLOCK REPAIR TECHNICIAN) Vitamin B12 Assay, S 369 232 - 1245 ng/L 06/19/2022 2:59 PM CLOCK REPAIR TECHNICIAN [facility] Comment: Biotin has been identified by the ceramic tile mechanic as a potential interfering substance. Higher concentrations of biotin may be found in multivitamins, hair/nail supplements, and workout supplements. If the result does not match clinical observations, repeat testing after patient refrains from the use of supplements for at least 12 hours. Blood (Blood, Venous) 06/19/2022 8:45 AM CLOCK REPAIR TECHNICIAN 06/19/2022 2:12 PM CLOCK REPAIR TECHNICIAN Shahram Arnold M.D. LAB BLOOD ADD-ON [facility] [address] [place] [address], [facility] in [address] [phone] * Folate (06/19/2022 8:45 AM CLOCK REPAIR TECHNICIAN) Folate, S 11.9 >=4.0 mcg/L 06/19/2022 2:59 PM CLOCK REPAIR TECHNICIAN [facility] Comment: Biotin has been identified by the ceramic tile mechanic as a potential interfering substance. Higher concentrations of biotin may be found in multivitamins, hair/nail supplements, and workout supplements. If the result does not match clinical observations, repeat testing after patient refrains from the use of supplements for at least 12 hours. Blood (Blood, Venous) 06/19/2022 8:45 AM CLOCK REPAIR TECHNICIAN 06/19/2022 2:12 PM CLOCK REPAIR TECHNICIAN Shahram Arnold M.D. LAB BLOOD ADD-ON [facility] [address] [place] [address], [facility] in [address] [address] * Ferritin (06/19/2022 8:45 AM CLOCK REPAIR TECHNICIAN) Ferritin, S 245 31 - 409 mcg/L 06/19/2022 12:58 PM CLOCK REPAIR TECHNICIAN [facility] Comment: Biotin has been identified by the ceramic tile mechanic as a potential interfering substance. Higher concentrations of biotin may be found in multivitamins, hair/nail supplements, and workout supplements. If the result does not match clinical observations, repeat testing after patient refrains from the use of supplements for at least 12 hours. Blood (Blood, Venous) 06/19/2022 8:45 AM CLOCK REPAIR TECHNICIAN 06/19/2022 12:25 PM CLOCK REPAIR TECHNICIAN Shahram Arnold M.D. LAB BLOOD ADD-ON [facility] [place] [facility] [address] [place] [address], [facility] in [place] [address] [place] [phone] * Iron and Total Iron-Binding Capacity (06/19/2022 8:45 AM CLOCK REPAIR TECHNICIAN) Iron 72 50 - 150 mcg/dL 06/19/2022 12:48 PM CLOCK REPAIR TECHNICIAN [facility] Total Iron Binding Capacity 284 250 - 400 mcg/dL 06/19/2022 12:48 PM CLOCK REPAIR TECHNICIAN [facility] Percent Saturation 25 14 - 50 % 06/19/2022 12:48 PM CLOCK REPAIR TECHNICIAN [facility] Blood (Blood, Venous) 06/19/2022 8:45 AM CLOCK REPAIR TECHNICIAN 06/19/2022 12:25 PM CLOCK REPAIR TECHNICIAN Shahram Arnold M.D. LAB BLOOD ADD-ON [facility] [address] [place] [address], [facility] in [place] [address] [place] [phone] documented in this encounter Visit Diagnoses Diagnosis Anemia Primary Malignant Neoplasm Of Prostate (HCC) documented in this encounter Care Teams Fur Buyer Relationship Specialty Start Date End Date Elsewhere, Pcp PCP - General Internal Medicine 10/22/19 documented as of this encounter
--- OUTSIDE RECORDS SUMMARY | 2023-05-30 10:24 | XMS_ITS | Encounter Summary ---
Author Name Unknown Organization [facility] Address [address] [place] [address] Care Team Providers Care Flue Gas Analyst Name Role Phone Elsewhere, Pcp Primary Care Provider Unavailabl e Reason for Visit * Reason Onset Date Comments Appointment 10/17/2022 Encounter Details Date Type Department Care Team ([facility] st Contact Info) Description 10/17/2022 Clinical Communication Department of Oncology in [place], [place] [address] [place] [phone] Shahram Arnold M.D. [address] [place] [phone] Appointment Social History Tobacco Use Types Packs/Day Years [...] often do you attend chur ch or mosque services? Never 05/18/2022 Do you belong to any clubs o r organizations such as yazidi groups, unions, fraternal or athletic groups, or [...] and heating? Not hard at all 05/18/2022 [facility] of Occupat ional Health - Occupational Stress [...] (Latest Contact Info) Description 05/30/2023 11:00 AM REPAIR DEPARTMENT SUPERVISOR Clinical Communication Virtual Review in [place], [place] 200 [place] [address] 06/06/2023 11:15 AM REPAIR DEPARTMENT SUPERVISOR Office Visit Department of Oncology in [place], [place] [address] [place] [phone] Shahram Arnold M.D. [address] [place] [phone] 06/07/2023 2:00 PM REPAIR DEPARTMENT SUPERVISOR Appointment Department of Radiation Oncology in [place], [place] [address] [place] [phone] Benitez Ames M.D. [address] [place] [phone] documented as of this encounter Visit Diagnoses Not on filedocumented in this encounter Care Teams Flue Gas Analyst Relationship Specialty Start Date End Date Elsewhere, Pcp PCP - General Internal Medicine 10/22/19 documented as of this encounter
--- OUTSIDE RECORDS SUMMARY | 2023-05-30 10:24 | XMS_ITS | Encounter Summary ---
Author Name Unknown Organization [facility] Address [address] [place] [address] Care Team Providers Care Patient Advocate Name Role Phone Elsewhere, Pcp Primary Care Provider Unavailabl e Reason for Visit * Outpatient (Routine) - Closed Specialty Diagnoses / Procedures Referred By Alpa t Referred To Contact Urology Diagnoses Pain Testicular Rena Kee APRN, C.N.P., D.N.P. [address] [place] [phone] [facility] Region Referral ID Status Reason Start Date Expiration Date Visits Re quested Visits Authorized [id number] Closed 06/15/2022 06/15/2023 1 1 Encounter Details Date Type Department Care Team (Latest Contact Info) Description 08/01/2022 2:30 PM CDT Comprehensive Visit Department of Urology in [place], [place] [address] [place] [phone] Rasheeda Garcia, P.A.-C. [address] [place] [phone] Pain Testicular Social History Tobacco Use Types Packs/Day Years [...] How often do you attend chur or jehovah's witness services? Never 05/18/2022 Do [...] and heating? Not hard at all 05/18/2022 [facility] [place] of Occupat ional Health - Occupational Stress [...] AM CDT documented as of this encounter Patient Instructions * Attachments The following attachments cannot be sent through Care Everywhere. * Home Instructions for Relief of Pelvic Floor Pain (Men) (Slovak) * Yoga for Pelvic Pain (Slovak) documented in this encounter Consult Notes * Rasheeda Garcia P.A.-C., Bebeto. - 08/01/2022 2:30 PM CDT SUBJECTIVE CHIEF COMPLAINT/REASON FOR VISIT F2F visit, uro clinic Very high-risk Prostate cancer - s/p radiation therapy May of 2021, presently on ADT and abiraterone Chronic Scrotal pain/groin pain, L>R HISTORY OF PRESENT ILLNESS Pleasant 77-year-old gentleman presents today for further discussion of diffuse scrotal discomfort.He has a history of high-risk prostate cancer, status post external beam radiation May of 2021. Presently receiving ADT, and is on abiraterone. His PSA remains undetectable. Reviewing MR, 5.8 mL prostate tumor identified left posterior to anterior base to apex there was capsular penetration and thought to have involvement of the seminal vesicle on the left. He reports noticing this discomfort since his prostate biopsy, transperineal MR guided with [place] [facility] 03/07/2021. Pain is reproduced by manipulation of testicles. Describes as a sharp shooting pain and then dissipates quickly. His radiation oncology team ordered scrotal ultrasound inguinal ultrasound, small left fat containing hematoma, no abnormal findings on scrotal ultrasound. He met with General surgery this afternoon today complaint 6 weeks of left groin pain. Occasionally will feel this on the right side as well. REVIEW OF SYSTEMS Per HPI. Pain 0/10 MEDICAL HISTORY Patient Active Problem List Diagnosis Primary Malignant Neoplasm Of Prostate (HCC) Other Secondary Hypertension CURRENT MEDICATIONS Current Medications: abiraterone (ZYTIGA) 500 mg tablet, atorvastatin (LIPITOR) 20 mg tablet, calcium carbonate 1,500 mg (600 mg calcium) tablet, Take 600 mg of calcium by mouth daily. 2 tablets (600 mg) plus 400 IE Vitamin D3 chlorthalidone (HYGROTON) 25 mg tablet, cholecalciferol, vitamin D3, 25 mcg (1,000 Unit) tablet, lisinopriL (PRINIVIL,ZESTRIL) 40 mg tablet, Take 1 tablet (40 mg total) by mouth daily. sildenafil (REVATIO) 20 mg tablet, Take 1-5 tablets by mouth 1 hour prior to sexual activity. Do not exceed more than 5 tabs in 24 hours. tamsulosin (FLOMAX) 0.4 mg 24 hr capsule, 2 tablets (.8mg) abiraterone (ZYTIGA) 250 mg tablet, Take 4 tablets (1,000 mg total) by mouth daily. Take on an empty stomach (1 hour before or 2 hours after food). (Patient not taking: Reported on 08/01/2022) leuprolide (ELIGARD 6 MONTH) 45 mg injection, Inject 45 mg under the skin once for 1 dose. ALLERGIES/CONTRAINDICATIONS No Known Allergies OBJECTIVE VITAL SIGNS There were no vitals taken for this visit. PHYSICAL EXAMINATION General: Overall well-appearing, no acute distress. Skin: No raised areas, rashes or lesions to areas I inspected. Eyes: No scleral icterus, normal conjunctivae. Respiratory: Normal respiratory effort. Musculoskeletal: Walks with a steady gait, without assistance. Psychiatric: Appropriate affect. Neurological: Alert and oriented x4. : exam deferred completed today by GNS, normal exam DIAGNOSTICS Prostate MRI Volume 18cc PIRADS5 2.4 x 1.4 x 2.7 cm, 5.8cc, left posterior to anterior at base to apex, peripheral zone extending to transition zone suspicious for capsular penetration mid gland to base and neurovascular bundle invasion; probable involvement of seminal vesicles in midline to left in the base; mass encasingupper portion of external sphincter; no lymphadenopathy or bone lesions. Scrotal ultrasound impression: 06/13/2022 EXAM: US SCROTUM WITH DOPPLER Exam performed with color and spectral Doppler analysis. COMPARISON: None FINDINGS: Right testicle: Normal echotexture. Age-related atrophy. [...] identified in the scrotum. ASSESSMENT / PLAN ASSESSMENT/PLAN #1 Metastatic prostate cancer. Status post external beam radiation, now on ADT abiraterone. Followed closely by Medical Oncology in [place]. Appreciate their expertise. Last met with them June of 2022. #2 Intermittent left hemiscrotal pain/perineal pain. Scrotal ultrasound reassuring, no definitive cause to his discomfort I am not convinced that there really is anything surgical that could be done to try to change this. Reviewing his MRI, his prostate tumor involves majority of the left prostate lobe and does not involve the seminal vesicles and nerve bundle on the left. His impression is that his symptoms been prevalent since the time of biopsy,possible that this did result from some nerve changes from biopsy. Again no concerning findings, heis on active treatment for his prostate cancer and responding well. No structural abnormalities to the scrotal contents on recent ultrasound. He is very intermittently bothered. In really upon further questioning it sounds like this is not debilitating to him. Encouraged him to simply monitor: Conservative measures discussed supportive undergarments, ibuprofen if able, elevation of scrotum ice and heat as needed. PATIENT EDUCATION Ready to learn, no apparent learning barriers were identified; learning preferences include listening. Explained diagnosis and treatment plan; patient expressed understanding of the content. documented in this encounter Plan of Treatment Upcoming Encounters Date Type Department Care Team (Latest Contact Info) Description 05/30/2023 11:00 AM AIRBRUSH ARTIST PHOTOGRAPHY Clinical Communication Virtual Review in [place], [place] [address] [place] [address] 06/06/2023 11:15 AM AIRBRUSH ARTIST PHOTOGRAPHY Office Visit Department of Oncology in [place], [place] [address] [place] [phone] Shahram Arnold M.D. [address] [place] [phone] 06/07/2023 2:00 PM AIRBRUSH ARTIST PHOTOGRAPHY Appointment Department of Radiation Oncology in [place] [id number] [place] [phone] Benitez Ames M.D. [address] [place] [phone] documented as of this encounter Visit Diagnoses Diagnosis Pain Testicular documented in this encounter Care Teams Patient Advocate Relationship Specialty Start Date End Date Elsewhere, Pcp PCP - General Internal Medicine 10/22/19 documented as of this encounter
--- OUTSIDE RECORDS SUMMARY | 2023-05-30 10:24 | XMS_ITS | Encounter Summary ---
Author Name Unknown Organization [facility] Address [address] [place] [address] Care Team Providers Care Automation Test Engineer Name Role Phone Elsewhere, Pcp Primary Care Provider Unavailabl e Encounter Details Date Type Department Care Team (Late st Contact Info) Description 08/10/2022 Clinical Communication Department of Oncology in [place], [place] [address] [place] [phone] Shahram Arnold M.D. [address] [place] [phone] Social History Tobacco Use Types Packs/Day Years [...] any clubs o r organizations such as anabaptist groups, unions, fraternal or athletic groups, or [...] and heating? Not hard at all 05/18/2022 [facility] of Occupat ional Health - Occupational [...] place to sleep or slept in a fpc (including now)? No 05/18/2022 Nutrition Answer Date [...] (Latest Contact Info) Description 05/30/2023 11:00 AM CLERK CASHIER Clinical Communication Virtual Review in [place], [place] 200 [place] [address] 06/06/2023 11:15 AM CLERK CASHIER Office Visit Department of Oncology in [place], [place] [address] [place] [phone] Shahram Arnold M.D. [address] [place] [phone] 06/07/2023 2:00 PM CLERK CASHIER Appointment Department of Radiation Oncology in [place], [place] [address] [place] [phone] Benitez Ames M.D. [address] [place] [phone] documented as of this encounter Visit Diagnoses Not on filedocumented in this encounter Care Teams Automation Test Engineer Relationship Specialty Start Date End Date Elsewhere, Pcp PCP - General Internal Medicine 10/22/19 documented as of this encounter
--- OUTSIDE RECORDS SUMMARY | 2023-05-30 10:25 | XMS_ITS | Encounter Summary ---
Author Name Unknown Organization [facility] Address [address] [place] [address] Care Team Providers Care Rivet Maker Name Role Phone Elsewhere, Pcp Primary Care Provider Unavailabl e Reason for Referral * Outpatient (Routine) - Closed Specialty Diagnoses / Procedures Referred By Alpa mijares Referred To Contact Diagnoses Pain Groin Procedures US Inguinal Bilateral Bneitez Ames M.D. [address] [place] [phone] [facility] Region Referral ID Status Reason Start Date Expiration Date Visits Re quested Visits Authorized [id number] Closed 05/22/2022 05/22/2023 1 1 ODS STUDY ANALYST Reason for Visit * Outpatient (Routine) - Closed Specialty Diagnoses / Procedures Referred By Alpa mijares Referred To Contact Diagnoses Pain Groin Procedures US Inguinal Bilateral Benitez Ames M.D. [address] [place] [phone] [facility] Region Referral ID Status Reason Start Date Expiration Date Visits Re quested Visits Authorized [id number] Closed 05/22/2022 05/22/2023 1 1 Encounter Details Date Type Department Care Team (Latest Contact Info) Description 06/13/2022 8:55 AM METHODS STUDY ANALYST Hospital Encounter Department of Radiology in [address] [phone] Benitez Ames M.D. [address] [place] [address], [place] [phone] Pain Groin Discharge Disposition: Home or Self Care Social [...] How often do you attend chur or synagogue services? Never 05/18/2022 Do you belong to any clubs o r organizations such as yazidism groups, unions, fraternal or athletic groups, or [...] and heating? Not hard at all 05/18/2022 [facility] of Occupat ional Health - Occupational [...] (Latest Contact Info) Description 05/30/2023 11:00 AM METHODS STUDY ANALYST Clinical Communication Virtual Review in [address] [address] 06/06/2023 11:15 AM METHODS STUDY ANALYST Office Visit Department of Oncology in [place], [place] [address] [place] [phone] Shahram Arnold M.D. [address] [place] [phone] 06/07/2023 2:00 PM METHODS STUDY ANALYST Appointment Department of Radiation Oncology in [place], [place] [address] [place] [phone] Benitez Ames M.D. [address] [place] [phone] documented as of this encounter Procedures Procedure Name Priority Date/Time Associated Diagnosis Comments US INGUINAL BILATERAL RAD - Routine (most inpatients and all outpatients) 06/13/2022 9:46 AM METHODS STUDY ANALYST Pain Groin documented in this encounter Results * US Inguinal Bilateral (06/13/2022 9:46 AM METHODS STUDY ANALYST) Anatomical Region Laterality Modality Pelvis, Ultrasound RST LOS, Ultrasound ARZ LOS, Ultrasound FLA LOS Bilateral Ultrasound 06/13/2022 10:3 9 AM METHODS STUDY ANALYST Impressions 06/13/2022 10:48 AM METHODS STUDY ANALYST Small fat-containing left inguinal hernia. Narrative 06/13/2022 10:48 AM METHODS STUDY ANALYST EXAM: US INGUINAL BILATERAL COMPARISON: None FINDINGS: Small fat-containing left inguinal hernia. No right sided hernia. Procedure Note Payam Darden M.D. - 06/13/2022 EXAM: US INGUINAL BILATERAL COMPARISON: None FINDINGS: Small fat-containing left inguinal hernia. No right sidedhernia. IMPRESSION: Small fat-containing left inguinal hernia. Benitez Aems M.D. IMG US PROCEDURES documented in this encounter Visit Diagnoses Diagnosis Pain Groin documented in this encounter Care Teams Rivet Maker Relationship Specialty Start Date End Date Elsewhere, Pcp PCP - General Internal Medicine 10/22/19 documented as of this encounter
--- OUTSIDE RECORDS SUMMARY | 2023-05-30 10:25 | XMS_ITS | Encounter Summary ---
Author Name Unknown Organization [facility] Address [address] [place] [address] Care Team Providers Care Director Of Social Services Name Role Phone Elsewhere, Pcp Primary Care Provider Unavailabl e Reason for Referral * Outpatient (Routine) - Closed Specialty Diagnoses / Procedures Referred By Contac t Referred To Contact General Surgery Diagnoses Pain Groin Hernia Inguinal Left Rena Kee APRN, C.N.P., D.N.P. [address] [place] [phone] [facility] Region Referral ID Status Reason Start Date Expiration Date Visits Re quested Visits Authorized [id number] Closed 06/15/2022 06/15/2023 1 1 Scheduling Instructions [facility] [place] REPAIR PERSON * Outpatient (Routine) - Closed Specialty Diagnoses / Procedures Referred By Contac t Referred To Contact Urology Diagnoses Pain Testicular Rena Kee APRN, C.N.P., D.N.P. [address] [place] [phone] [facility] Region Referral ID Status Reason Start Date Expiration Date Visits Re quested Visits Authorized [id number] Closed 06/15/2022 06/15/2023 1 1 Scheduling Instructions [facility] [place] REPAIR PERSON * Outpatient (Routine) - Closed Specialty Diagnoses / Procedures Referred By Contac t Referred To Contact Radiation Oncology Rena Kee APRN, C.NAda, Enriqueta.N.P. [address] [place] [phone] [facility] Region Referral ID Status Reason Start Date Expiration Date Visits Re quested Visits Authorized [id number] Closed 05/22/2022 05/21/2025 1 1 REPAIR PERSON Reason for Visit * Outpatient (Routine) - Closed Specialty Diagnoses / Procedures Referred By Alpa mijares Referred To Contact Radiation Oncology Rena Kee APRN, C.NAda, Enriqueta.N.PRyan [address] [place] [phone] [facility] Region Referral ID Status Reason Start Date Expiration Date Visits Re quested Visits Authorized [id number] Closed 05/22/2022 05/21/2025 1 1 Encounter Details Date Type Department Care Team (Latest Contact Info) Description 06/15/2022 1:29 PM SAIL REPAIR PERSON - 06/15/2022 2:28 PM SAIL REPAIR PERSON Hospital Encounter Department of Radiation Oncology in [place], [place] [address] [place] [phone] Benitez Ames M.D. [address] [place] [phone] Primary Malignant Neoplasm Of Prostate (HCC) (Primary Dx); Pain Testicular; Pain Groin; Hernia Inguinal Left Social History [...] How often do you attend chur or yarsanism services? Never 05/18/2022 Do you belong to any clubs o r organizations such as cheondoism groups, unions, fraternal or athletic groups, or [...] and heating? Not hard at all 05/18/2022 [facility] [place] of Occupat ional Health - Occupational Stress [...] 0 02/26/2023 documented as of this encounter Progress Notes * Rena Kee APRN, C.N.P., D.N.P. - 06/15/2022 1:30 PM CST SUBJECTIVE DIAGNOSIS 1. Primary Malignant Neoplasm Of Prostate (HCC) SUPERVISED BY: Dr. Ames [id number] PHONE VISIT Follow-up visit conducted via telephone by Rena Kee APRN, C.N.P. to the patient at [phone]. Verbal consent was obtained for this telephone visit by the patient during the encounter. Telephone medical visits may be billed to insurance the same as if the patient were being seen face to face. HISTORY OF PRESENT ILLNESS Mr. Ruben Hansen is a 77 y.o. male with high risk prostate cancer. He completed definitive radiation therapy on May 22, 2021. He was recently seen for routine follow-up and discussed ongoing testicular and groin pain. He completed a scrotal and bilateral inguinal ultrasound. He is being contacted with the results. His oncologic history is as follows: Oncology History Overview Note March 2021: PSA 4, [place] 9, MRI showing T4N) disease (invasion of [...] biopsy: 6/6 left prostate region of interest [place] 4+5 (75% of specimen), extraprostatic extension and perineural invasion present; 6 benign cores right. Prostate examination showed leftinduration. 03/07/2021 Clinical Stage Staging form: Prostate, AJCC 8th Edition - Clinical stage from 03/07/2021: Stage IIIC (cT4, cN0, cM0, PSA: 4, Grade Group: 5) Histopathologic type: Adenocarcinoma, NOS Stage prefix: Initial diagnosis Prostate specific antigen (PSA) range: Less than 10 Basil primary pattern: 4 [place] secondary pattern: 5 Histologic grading system: 5 grade system Number of biopsy cores examined: 12 Number of biopsy cores positive: 6 Location of positive needle core biopsies: One side 04/17/2021 - 05/22/2021 Radiation Therapy Radiation Therapy Treatment Details (04/17/2021 - 05/22/2021) Site: Prostate Technique: IMRT Goal: Curative Planned Treatment Start Date: 04/17/2021 INTERVAL HISTORY The patient was seen and examined today with Dr. Ames. The patient reports doing well overall. He reports the left groin pain is comparable to our last visit approximately 1 month ago. He does note that pain is radiating to his right groin at times. He rates the pain today at 2/10. He does not notice any changes or growing mass. This pain does not prevent him from completing any tasks and does not worsened with activity. He reports his testicular pain is stable. He reports this has been present since his initial prostate biopsy. It only occurs whenhis testicles are bumped or touched. The pain shoots to an 8/10 and then quickly subsides over a matter of a few minutes. If they are not touched or bumped, the pain is not present. REVIEW OF SYSTEMS Review of systems was negative except as documented above. OBJECTIVE There were no vitals taken for this visit. PHYSICAL EXAM GENERAL: Alert and oriented in no apparent distress. 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 I reviewed his results with him today of the scrotal andbilateral inguinal ultrasound, and urinalysis. Scrotal ultrasound demonstrated no concerning findings. Inguinal ultrasound demonstrated a small left fat containing hernia with no concerns on the right. His urinalysis came back normal. This information was discussed with Dr. Ames prior to makingthis phone call. It is unclear where his testicular pain is stemming from. We will refer him to urology for their recommendations. We have also referred him to general surgery for his hernia. The patient verbalized agreement to these referrals. From his prostate cancer standpoint, we will follow-up with him in May 2023 for his yearly management. He continues following closely with Dr. Tavera and his team for ongoing ADT and abiraterone treatment. He will contact us sooner with questions or concerns. He verbally expressed his understanding of the plan. EDUCATION Ready to learn, no apparent learning barriers were identified; learning preferences include listening. Explained diagnosis and treatment plan; patient expressed understanding of the content. I personally spent 20 minutes in care of the patient today. Time includes both non face to face andface to face patient care. Signed by: Rena Kee APRN, Kameron.N.PRyan, D.N.P. 06/15/2022 1:30 PM SAIL REPAIR PERSON [facility] [address] [place] [address] REPAIR PERSON documented in this encounter Miscellaneous Notes * Addendum Note - Rena Kee APRN, Kameron.N.P., D.N.P. - 06/15/2022 1:30 PM CSTEncounter addended by: Rena Kee APRN, Kameron.N.PRyan, D.N.P. on: 01/03/2023 1:40 PM Actions taken: Therapy plan modified, Order list changed documented in this encounter Plan of Treatment Upcoming Encounters Date Type Department Care Team (Latest Contact Info) Description 05/30/2023 11:00 AM SAIL REPAIR PERSON Clinical Communication Virtual Review in [place], [place] [address] [place] [address] 06/06/2023 11:15 AM SAIL REPAIR PERSON Office Visit Department of Oncology in [place], [place] [address] [place] [phone] Shahram Arnold M.D. [address] [place] [phone] 06/07/2023 2:00 PM SAIL REPAIR PERSON Appointment Department of Radiation Oncology in [place], [place] [address] [place] [phone] Benitez Ames M.D. [address] [place] [phone] Scheduled Referrals Name Type Priority Associated Diagnoses Order Schedule Radiation Oncology office visit (clinic) Outpatient Referral Routine Once for 1 Occurrences starting 06/15/2022 until 06/15/2022 Urology - Other/benign - scrotal / testicular consult (clinic) Outpatient Referral Routine Pain Testicular Expected: 06/15/2022 (Approximate), Expires: 09/16/2023 General Surgery - Hernia consult (clinic) Outpatient Referral Routine Pain Groin Hernia Inguinal Left Expected: 06/15/2022 (Approximate), Expires: 09/16/2023 documented as of this encounter Visit Diagnoses Diagnosis Primary Malignant Neoplasm Of Prostate (HCC)- Primary Pain Testicular Pain Groin Hernia Inguinal Left documented in this encounter Care Teams Director Of Social Services Relationship Specialty Start Date End Date Elsewhere, Pcp PCP - General Internal Medicine 10/22/19 documented as of this encounter
--- OUTSIDE RECORDS SUMMARY | 2023-05-30 10:25 | XMS_ITS | Encounter Summary ---
Author Name Unknown Organization [facility] Address [address] [place] [address] Care Team Providers Care Board Certified Music Therapist Name Role Phone Elsewhere, Pcp Primary Care Provider Unavailabl e Reason for Referral * Outpatient (Routine) - Closed Specialty Diagnoses / Procedures Referred By Alpa mijares Referred To Contact Diagnoses Pain Testicular Procedures US Scrotum with Doppler Benitez Ames M.D. [address] [place] [phone] [facility] [place] Region Referral ID Status Reason Start Date Expiration Date Visits Re quested Visits Authorized [id number] Closed 05/22/2022 05/22/2023 1 1 ET TURNER Reason for Visit * Outpatient (Routine) - Closed Specialty Diagnoses / Procedures Referred By Alpa mijares Referred To Contact Diagnoses Pain Testicular Procedures US Scrotum with Doppler Benitez Ames M.D. [address] [place] [phone] [facility] Region Referral ID Status Reason Start Date Expiration Date Visits Re quested Visits Authorized [id number] Closed 05/22/2022 05/22/2023 1 1 Encounter Details Date Type Department Care Team (Latest Contact Info) Description 06/13/2022 8:55 AM BASKET TURNER Hospital Encounter Department of Radiology in [address] [phone] Benitez Ames M.D. [address] [place] [phone] Pain Testicular Discharge Disposition: Home or Self Care Social [...] week 05/18/2022 How often do you attend [facility] or episcopalian services? Never 05/18/2022 Do you [...] and heating? Not hard at all 05/18/2022 [facility] [place] of Occupat ional Health - Occupational Stress [...] (Latest Contact Info) Description 05/30/2023 11:00 AM BASKET TURNER Clinical Communication Virtual Review in [address] [address] 06/06/2023 11:15 AM BASKET TURNER Office Visit Department of Oncology in [place], [place] [address] [place] [phone] Shahram Arnold M.D. [address] [place] [phone] 06/07/2023 2:00 PM BASKET TURNER Appointment Department of Radiation Oncology in [place], [place] [address] [place] [phone] Benitez Ames M.D. [address] [place] [phone] documented as of this encounter Procedures Procedure Name Priority Date/Time Associated Diagnosis Comments US SCROTUM WITH DOPPLER RAD - Routine (most inpatients and all outpatients) 06/13/2022 9:42 AM BASKET TURNER Pain Testicular documented in this encounter Results * US Scrotum with Doppler (06/13/2022 9:42 AM BASKET TURNER) Anatomical Region Laterality Modality Testes, Ultrasound RST LOS, Ultrasound ARZ LOS, Ultrasound FLA LOS N/A Ultrasound 06/13/2022 10:0 5 AM BASKET TURNER Impressions 06/13/2022 10:08 AM BASKET TURNER No abnormalities identified in the scrotum. Narrative 06/13/2022 10:08 AM BASKET TURNER EXAM: US SCROTUM WITH DOPPLER Exam performed [...] or hyperemia. Other: No hydrocele. No varicocele. Procedure Note Chelita Quesada M.D. - 06/13/2022 EXAM: US SCROTUM WITH DOPPLER Exam performed with color and spectral Doppler analysis. COMPARISON: None FINDINGS: Right testicle: Normal echotexture. Age-related atrophy. No focal mass.Normal arterial blood flow on color and spectral Doppler. Right testis volume: 3.7 ml Epididymis: Normal. No mass or hyperemia. Other: No hydrocele. No varicocele. Left testicle: Normal echotexture. Age-related atrophy. No focal mass.Normal arterial blood flow on color and spectral Doppler. Left testis volume: 2.6 ml Epididymis: Normal. No mass or hyperemia. Other: No hydrocele. No varicocele. IMPRESSION: No abnormalities identified in the scrotum. Benitez JACKSON US PROCEDURES documented in this encounter Visit Diagnoses Diagnosis Pain Testicular documented in this encounter Care Teams Board Certified Music Therapist Relationship Specialty Start Date End Date Elsewhere, Pcp PCP - General Internal Medicine 10/22/19 documented as of this encounter
--- OUTSIDE RECORDS SUMMARY | 2023-05-30 10:25 | XMS_ITS | Encounter Summary ---
Author Name Unknown Organization [facility] Address [address] [place] [address] Care Team Providers Care Imitation Marble Mechanic Name Role Phone Elsewhere, Pcp Primary Care Provider Unavailabl e Encounter Details Date Type Department Care Team (Latest Contact Info) Description 06/13/2022 8:56 AM HARPSICHORD MAKER - 06/13/2022 11:59 PM [facility]PS[facility]ORD MAKER Hospital Encounter Department of Laboratory Medicine in [address] [phone] Benitez Ames M.D. [address] [place] [address] Pain Testicular Discharge Disposition: Home or Self [...] often do you attend chur ch or jainism services? Never 05/18/2022 Do you belong to any clubs o r organizations such as methodist groups, unions, fraternal or athletic groups, or [...] and heating? Not hard at all 05/18/2022 [facility] Occupat ional Health - [...] the money to buy more. Never true 02/03/20 23 Within the past 12 months, t [...] (Latest Contact Info) Description 05/30/2023 11:00 AM HARPSICHORD MAKER Clinical Communication Virtual Review in [place], [place] [address] [place] [address] 06/06/2023 11:15 AM HARPSICHORD MAKER Office Visit Department of Oncology in [place], [place] [address] [place] [phone] Shahram Arnold M.D. [address] [place] [phone] 06/07/2023 2:00 PM HARPSICHORD MAKER Appointment Department of Radiation Oncology in [place] [id number] [place] [phone] Benitez Ames M.D. [address] [place] [phone] documented as of this encounter Procedures Procedure Name Priority Date/Time Associated Diagnosis Comments URINALYSIS WITH MICROSCOPIC Routine 06/13/2022 9:41 AM HARPSICHORD MAKER Pain Testicular documented in this encounter Results * (ABNORMAL) Urinalysis with Microscopic: Urine, Midstream (06/13/2022 9:41 AM HARPSICHORD MAKER) Source Urine, Urine, Midstream 06/13/2022 9:46 AM HARPSICHORD MAKER [facility] Clarity Clear Clear 06/13/2022 9:49 AM HARPSICHORD MAKER [facility] Color Yellow 06/13/2022 9:49 AM HARPSICHORD MAKER [facility] Comment: ----REFERENCE VALUE---- Colorless Yellow Snow Blood Negative Negative 06/13/2022 9:49 AM HARPSICHORD MAKER [facility]FL Nitrite Negative Negative 06/13/2022 9:49 AM HARPSICHORD MAKER [facility] Leukocyte Esterase Negative Negative 06/13/2022 9:49 AM HARPSICHORD MAKER [facility] Protein Negative mg/dL 06/13/2022 9:49 AM HARPSICHORD MAKER [facility] Comment: ----REFERENCE VALUE---- Negative Trace Glucose Negative Negative mg/dL 06/13/2022 9:49 AM HARPSICHORD MAKER [facility] Ketones, QI(U) Negative Negative mg/dL 06/13/2022 9:49 AM HARPSICHORD MAKER [facility]FL Bilirubin Negative Negative 06/13/2022 9:49 AM HARPSICHORD MAKER [facility] pH 7.0 5.0 - 8.0 06/13/2022 9:49 AM HARPSICHORD MAKER [facility] Specific [place] 1.020 1.001 - 1.035 06/13/2022 9:49 AM HARPSICHORD MAKER [facility]FL Urobilinogen 0.2 0.2 - 1.0 mg/dL 06/13/2022 9:49 AM HARPSICHORD MAKER [facility] White Blood Cells Occ-3 /hpf 06/13/2022 10:11 AM HARPSICHORD MAKER [facility] Comment: ----REFERENCE VALUE---- Males: 0-3 Females: 0-10 Unknown: 0-10 Red Blood Cells Occ-2 0 - 2 /hpf 10:11 AM HARPSICHORD MAKER [facility] Dysmorphic Red Blood Cells <=25 <=25 % 06/13/2022 10:11 AM HARPSICHORD MAKER [facility] Crystals Amorphous(A) None Seen /lpf 06/13/2022 10:11 AM HARPSICHORD MAKER [facility] Mucus Present /hpf 06/13/2022 10:11 AM HARPSICHORD MAKER [facility] Squamous Cells None Seen /hpf 06/13/2022 10:11 AM HARPSICHORD MAKER CNFL Urine (Urine, Midstream) 06/13/2022 9:41 AM HARPSICHORD MAKER 06/13/2022 9:46 AM HARPSICHORD MAKER Benitez Ames M.D. LAB URINE ORDERABL ES [facility] [address] [place], [place] [address], [facility] in [address] [address] documented in this encounter Visit Diagnoses Diagnosis Pain Testicular documented in this encounter Care Teams Imitation Marble Mechanic Relationship Specialty Start Date End Date Elsewhere, Pcp PCP - General Internal Medicine 10/22/19 documented as of this encounter
--- OUTSIDE RECORDS SUMMARY | 2023-05-30 10:25 | XMS_ITS | Encounter Summary ---
Author Name Unknown Organization [facility] Address [address] [place] [id number] Care Team Providers Care National Account Representative Name Role Phone Elsewhere, Pcp Primary Care Provider Unavailabl e Reason for Visit * Reason Onset Date Comments Pre-visit Intake 06/14/2022 Encounter Details Date Type Department Care Team (Latest Contact Info) Description 06/14/2022 12:15 PM MATERIAL EXPEDITER Clinical Communication Virtual Review in [place], [place] [address] [place] [address] Pre-visit Intake Social History Tobacco Use Types [...] often do you attend chur ch or mormon services? Never 05/18/2022 Do you belong to any clubs o r organizations such as samaritan groups, unions, fraternal or athletic groups, or [...] and heating? Not hard at all 05/18/2022 [facility] [place] of Occupat ional Health - Occupational Stress [...] (Latest Contact Info) Description 05/30/2023 11:00 AM MATERIAL EXPEDITER Clinical Communication Virtual Review in [place], [place] [address] [place] [address] 06/06/2023 11:15 AM MATERIAL EXPEDITER Office Visit Department of Oncology in [place], [place] [address] [place] [phone] Shahram Arnold M.D. [address] [place] [phone] 06/07/2023 2:00 PM MATERIAL EXPEDITER Appointment Department of Radiation Oncology in [place], [place] [address] [place] [phone] Benitez Ames M.D. [address] [place] [phone] documented as of this encounter Visit Diagnoses Not on filedocumented in this encounter Care Teams National Account Representative Relationship Specialty Start Date End Date Elsewhere, Pcp PCP - General Internal Medicine 10/22/19 documented as of this encounter
--- OUTSIDE RECORDS SUMMARY | 2023-05-30 10:25 | XMS_ITS | Encounter Summary ---
Author Name Unknown Organization [facility] Address [address] [place] [address] Care Team Providers Care Equities Analyst Name Role Phone Elsewhere, Pcp Primary Care Provider Unavailabl e Reason for Referral * Outpatient (Routine) - Closed Specialty Diagnoses / Procedures Referred By Contac t Referred To Contact Oncology Shahram Arnold M.D. [address] [place] [phone] [facility] Referral ID Status Reason Start Date Expiration Date Visits Re quested Visits Authorized [id number] Closed 06/18/2022 06/17/2025 1 1 CONTENT DEVELOPER Reason for Visit * Outpatient (Routine) - Closed Specialty Diagnoses / Procedures Referred By Contac t Referred To Contact Oncology Shahram Arnold M.D. [address] [place] [phone] [facility] Referral ID Status Reason Start Date Expiration Date Visits Re quested Visits Authorized [id number] Closed 03/26/2022 03/25/2025 1 1 Encounter Details Date Type Department Care Team ([facility] st Contact Info) Description 06/18/2022 1:30 PM WEB CONTENT DEVELOPER Office Visit Division of Hematology in [place], [place] [address] [place] [phone] Shahram Arnlod M.D. [address] [place] [phone] Primary Malignant Neoplasm Of Prostate (HCC) (Primary Dx); Anemia Social History Tobacco Use Types Packs/Day Years [...] How often do you attend chur or uatsdin services? Never 05/18/2022 Do you belong to [...] and heating? Not hard at all 05/18/2022 [facility] Occupat ional Health - Occupational Stress [...] Sign Reading Time Taken Comments Blood Pressure 176/89 06/18/2022 1:24 PM WEB CONTENT DEVELOPER Pulse 76 06/18/2022 1:24 PM WEB CONTENT DEVELOPER Temperature 37 ??C (98.6 ??F) 06/18/2022 1:24 PM WEB CONTENT DEVELOPER Respiratory Rate 19 06/18/2022 1:24 PM WEB CONTENT DEVELOPER Oxygen Saturation 100% 06/18/2022 1:24 PM WEB CONTENT DEVELOPER Inhaled Oxygen Concentration - - Weight 79 kg (174 lb 2.6 oz) 06/18/2022 1:24 PM WEB CONTENT DEVELOPER Height 167 cm (5' 5.75) 06/18/2022 1:24 PM WEB CONTENT DEVELOPER Body Mass Index 28.33 06/18/2022 1:24 PM WEB CONTENT DEVELOPER documented in this encounter Progress Notes * Shahram Paulino M.D. - 06/18/2022 1:30 PM CST SUBJECTIVE PRIMARY CARE PHYSICIAN ELSEWHERE, PCP LOCAL ONCOLOGIST No care seo team lead to display [facility] Primary Staff Oncologist: Dr. Tavera Primary Fellow: Dr. Paulino CHIEF COMPLAINT / REASON FOR VISIT Ruben Hansen is a 77 y.o. male who presents for follow up of prostate adenocarcinoma. HISTORY OF PRESENT ILLNESS Oncology History Oncology History Overview Note March 2021: PSA 4, Marion 9, MRI showing T4N) disease (invasion of [...] specific antigen (PSA) range: Less than 10 Marion primary pattern: 4 Marion secondary pattern: 5 Histologic grading system: 5 grade system Number of biopsy cores examined: 12 Number of biopsy cores positive: 6 Location of positive needle core biopsies: One side 04/17/2021 - 05/22/2021 Radiation Therapy Radiation Therapy Treatment Details (04/17/2021 - 05/22/2021) Site: Prostate Technique: IMRT Goal: Curative Planned Treatment Start Date: 04/17/2021 INTERVAL HISTORY Mr. Hansen presents in the company of his fiaddiee for follow up today. He has overall been doing fairly well since his last follow up with me in March 2022. He notes that he had worsening groin pain, which prompted ultrasound imaging showing a small left inguinal hernia - he has appointments set up with both Urology and General Surgery in the coming weeks. His blood pressure continues to remain suboptimally controlled, but his local PCP has been closely following this and adjusting his antihypertensive regimen. He otherwise has been tolerating abiraterone well, with no new side effects. OBJECTIVE BP (!) 176/89 (BP Location: Right arm, Patient Position: Sitting, Cuff Size: Regular) Pulse 76 Temp 37 ??C (Tympanic) Resp 19 Ht 167 cm Wt 79 kg SpO2 100% BMI 28.33 kg/m?? PHYSICAL EXAM Constitutional General: He is not in acute [...] Content: Thought content normal. Judgment: Judgment normal. LABORATORY DATA Lab data reviewed. RADIOLOGICAL DATA Radiology data reviewed. 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 Hansen back for follow up. On review of his labs, his hemoglobin again returned <13, so we will plan to perform a basic anemia workup with a peripheral smear, ferritin and iron studies, folate levels, and B12 levels. Otherwise, his labs all appear satisfactory - his PSA remains undetectable, and his testosterone is pending at the time of writing this note. I am glad that his testicular pain and blood pressure are being well-managed by Radiation Oncology and [facility] respectively. Plan is for 2 years of systemic therapy from end of EBRT which was completed in May 2021. He received his dose of Eligard on approximately 03/13/2022, and will be due for his next dose in 6 months. As he is otherwise been tolerating this therapy well, we will plan to continue the current dosing. We will plan to see him back for follow up in 3 months. PATIENT EDUCATION Ready to learn, no apparent learning barriers were identified; learning preferences include listening. Explained diagnosis and treatment plan; patient expressed understanding of the content. ADMINISTRATIVE BILLING I personally spent over half of a total 25 minutes face to face with the patient in counseling and discussion and/or coordination of care as described above. CONTENT DEVELOPER documented in this encounter Plan of Treatment Upcoming Encounters Date Type Department Care Team (Latest Contact Info) Description 05/30/2023 11:00 AM WEB CONTENT DEVELOPER Clinical Communication Virtual Review in [address] [address] 06/06/2023 11:15 AM WEB CONTENT DEVELOPER Office Visit Department of Oncology in [place], [place] [address] [place] [phone] Shahram Arnold M.D. [address] [place] [phone] 06/07/2023 2:00 PM WEB CONTENT DEVELOPER Appointment Department of Radiation Oncology in [place] [id number] [place] [phone] Benitez Ames M.D. [address] [place] [phone] Scheduled Referrals Name Type Priority Associated Diagnoses Orde r Schedule Oncology office visit (clinic) General; Prostate Outpatient Referral Routine Expected: 09/18/2022 (Approximate), Expires: 09/19/2023 documented as of this encounter Procedures Procedure Name Priority Date/Time Associated Diagnosis Comments SPSMA RESULT Routine 06/18/2022 11:14 AM WEB CONTENT DEVELOPER Anemia documented in this encounter Results * (ABNORMAL) Testosterone, Total and Free (09/24/2022 11:31 AM CDT) Testosterone, Free, S <0.13(L) 3.08 - 11.3 ng/dL 10/05/2022 2:45 PM CDT [facility] Comment: ----ADDITIONAL INFORMATION---- This test was developed and its performance characteristics determined by [facility] in a manner consistent with CLIA requirements. This test has not been cleared or approved by the U.S. Food and Drug Administration. Testosterone, Total by Mass Spectrometry, Serum <7.0(L) 240 - 950 ng/dL 10/01/2022 1:59 PM CDT [facility] Comment: ----ADDITIONAL INFORMATION---- Testing performed by Liquid Chromatography-Tandem Mass Spectrometry (LC-MS/MS). This test was developed and its performance characteristics determined by [facility] in a manner consistent with CLIA requirements. This test has not been cleared or approved by the U.S. Food and Drug Administration. Blood (Blood, Venous) 09/24/2022 11:31 AM CDT 09/25/2022 7:33 AM CDT Shahram Arnold M.D. LAB BLOOD NON ADD-O N [facility] [address] [place] [address] [facility] [address] [place] [address] * PSA (Prostate-Specific Antigen), Diagnostic (09/24/2022 11:31 AM CDT) Prostate-Specific Ag <0.10 <=6.5 ng/mL 09/24/2022 1:40 PM CDT [facility] Comment: ----ADDITIONAL INFORMATION---- The testing method is an electrochemiluminescence assay manufactured by [employer] and performed on the Modular or [employer] system. Values obtained with different assay methods or kits may be different and cannot be used interchangeably. Test results cannot be interpreted as absolute evidence for the presence or absence of malignant disease. Blood (Blood, Venous) 09/24/2022 11:31 AM CDT 09/24/2022 12:55 PM CDT Shahram Arnold M.D. LAB BLOOD ADD-ON [facility] [address] [place] [address], [facility] [[email or web address]] [facility] in [place] [address] [place] [address] * (ABNORMAL) Comprehensive Metabolic Panel (09/24/2022 11:31 [...] M.D. LAB BLOOD ADD-ON Performing Organization Address City/State/[facility] Co de Phone Number [facility] [address] [place] [address], [facility] [[email or web address]] CNFL [facility] [place] [address] * (ABNORMAL) CBC with Differential, Blood (09/24/2022 [...] M.D. LAB BLOOD ADD-ON Performing Organization Address City/[facility]/ZIP Co de Phone Number [facility] [address] [place] [phone], [facility] [[email or web address]] CNFL [facility] [place] [address] * Vitamin B12 Assay (06/19/2022 8:45 AM WEB CONTENT DEVELOPER) [facility] Vitamin B12 Assay, S 369 232 - 1245 ng/L 06/19/2022 2:59 PM WEB CONTENT DEVELOPER ECLR Comment: Biotin has been identified by the lecturer in computer science as a potential interfering substance. Higher concentrations of biotin may be found in multivitamins, hair/nail supplements, and workout supplements. If the result does not match clinical observations, repeat testing after patient refrains from the use of supplements for at least 12 hours. Blood (Blood, Venous) 06/19/2022 8:45 AM WEB CONTENT DEVELOPER 06/19/2022 2:12 PM WEB CONTENT DEVELOPER Shahram Arnold M.D. LAB BLOOD ADD-ON [facility] [address] [place] [id number] [place] [address] ECLR [facility] in [address] [address] * Folate (06/19/2022 8:45 AM WEB CONTENT DEVELOPER) Pathologist [facility] Folate, S 11.9 >=4.0 mcg/L 06/19/2022 2:59 PM WEB CONTENT DEVELOPER ECLR Comment: Biotin has been identified by the lecturer in computer science as a potential interfering substance. Higher concentrations of biotin may be found in multivitamins, hair/nail supplements, and workout supplements. If the result does not match clinical observations, repeat testing after patient refrains from the use of supplements for at least 12 hours. Blood (Blood, Venous) 06/19/2022 8:45 AM WEB CONTENT DEVELOPER 06/19/2022 2:12 PM WEB CONTENT DEVELOPER Shahram Arnold M.D. LAB BLOOD ADD-ON Performing Organization Address City/[facility]/ZIP Co de Phone Number [facility] [address] [place] [address], [facility] [[email or web address]] ECLR [facility] in [address] [address] * Ferritin (06/19/2022 8:45 AM WEB CONTENT DEVELOPER) [facility] Ferritin, S 245 31 - 409 mcg/L 06/19/2022 12:58 PM WEB CONTENT DEVELOPER [facility] Comment: Biotin has been identified by the lecturer in computer science as a potential interfering substance. Higher concentrations of biotin may be found in multivitamins, hair/nail supplements, and workout supplements. If the result does not match clinical observations, repeat testing after patient refrains from the use of supplements for at least 12 hours. Blood (Blood, Venous) 06/19/2022 8:45 AM WEB CONTENT DEVELOPER 06/19/2022 12:25 PM WEB CONTENT DEVELOPER Shahram Arnold M.D. LAB BLOOD ADD-ON [facility] [address] [facility] [place] [address], [place] [facility] [place] [address] [place] [address] * Iron and Total Iron-Binding Capacity (06/19/2022 8:45 AM WEB CONTENT DEVELOPER) Iron 72 50 - 150 mcg/dL 06/19/2022 12:48 PM WEB CONTENT DEVELOPER [facility] Total Iron Binding Capacity 284 250 - 400 mcg/dL 06/19/2022 12:48 PM WEB CONTENT DEVELOPER [facility] Percent Saturation 25 14 - 50 % 06/19/2022 12:48 PM WEB CONTENT DEVELOPER [facility] Blood (Blood, Venous) 06/19/2022 8:45 AM WEB CONTENT DEVELOPER 06/19/2022 12:25 PM WEB CONTENT DEVELOPER Shahram Arnold M.D. LAB BLOOD ADD-ON [facility] [address] [place] [id number], [facility] [[email or web address]] [facility] in [place] [place] [address] * (ABNORMAL) SPSMA Result (06/18/2022 11:14 AM WEB CONTENT DEVELOPER) Pathologist [facility] Neutrophilic Segs and Bands 81(H) 50 - 75 % 06/18/2022 3:16 PM WEB CONTENT DEVELOPER [facility] Lymphocytes 11(L) 18 - 42 % 06/18/2022 3:16 PM WEB CONTENT DEVELOPER [facility] Monocytes 4 2 - 11 % 06/18/2022 3:16 PM WEB CONTENT DEVELOPER [facility] Eosinophils 2 1 - 3 % 06/18/2022 3:16 PM WEB CONTENT DEVELOPER [facility] Basophils 2 0 - 2 % 06/18/2022 3:16 PM WEB CONTENT DEVELOPER [facility] Interpretation SeeComment 06/18/2022 3:16 PM WEB CONTENT DEVELOPER [facility] Comment:Peripheral blood sme ar reviewed; no diagnostic abnormalities are seen. Reviewed by: Tech 06/18/2022 3:16 PM WEB CONTENT DEVELOPER [facility] Blood (Blood, Venous) 06/18/2022 11:14 AM WEB CONTENT DEVELOPER 06/18/2022 2:02 PM WEB CONTENT DEVELOPER Shahram Arnold M.D. LAB BLOOD ADD-ON [facility] [address] [place] [address], [facility] [address] [place] [address] documented in this encounter Visit Diagnoses Diagnosis Primary Malignant Neoplasm Of Prostate (HCC)- Primary Anemia documented in this encounter Care Teams Equities Analyst Relationship Specialty Start Date End Date Elsewhere, Pcp PCP - General Internal Medicine 10/22/19 documented as of this encounter
--- OUTSIDE RECORDS SUMMARY | 2023-05-30 10:25 | XMS_ITS | Encounter Summary ---
Author Name Unknown Organization [facility] Address [address] [place] [address] Care Team Providers Care Warranty Administrator Name Role Phone Elsewhere, Pcp Primary Care Provider Unavailabl e Encounter Details Date Type Department Care Team (Latest Contact Info) Description 06/18/2022 11:02 AM FORM BLOCK MAKER - 06/18/2022 11:59 PM FORM BLOCK MAKER Hospital Encounter Department of Laboratory Medicine and Pathology, [facility] in [place], [place] [address] [place] [phone] Shahram Arnold M.D. [address] [place] [address] Primary Malignant Neoplasm Of Prostate (HCC); Other [...] often do you attend chur ch or congregational services? Never 05/18/2022 Do you belong to [...] all 05/18/2022 [facility] - Occupational Stress Questionnaire Answer Date [...] (Latest Contact Info) Description 05/30/2023 11:00 AM FORM BLOCK MAKER Clinical Communication Virtual Review in [place], [place] 200 [place] [address] 06/06/2023 11:15 AM FORM BLOCK MAKER Office Visit Department of Oncology in [place], [place] [address] [place] [phone] Shahram Arnold M.D. [address] [place] [phone] 06/07/2023 2:00 PM FORM BLOCK MAKER Appointment Department of Radiation Oncology in [place] [address] [place] [phone] Benitez Ames M.D. [address] [place] [phone] documented as of this encounter Procedures Procedure Name Priority Date/Time Associated Diagnosis Comments CBC WITH DIFFERENTIAL, B Routine 06/18/2022 11:14 AM FORM BLOCK MAKER Primary Malignant Neoplasm Of Prostate (HCC) Other Secondary Hypertension TESTOSTERONE, TOT AND FR, S Routine 06/18/2022 11:14 AM FORM BLOCK MAKER Primary Malignant Neoplasm Of Prostate (HCC) Other Secondary Hypertension PROSTATE-SPECIFIC AG (PSA) DIAGNOSTIC, S Routine 06/18/2022 11:14 AM FORM BLOCK MAKER Primary Malignant Neoplasm Of Prostate (HCC) Other Secondary Hypertension COMPREHENSIVE METABOLIC PANEL, S/P Routine 06/18/2022 11:14 AM FORM BLOCK MAKER Primary Malignant Neoplasm Of Prostate (HCC) Other Secondary Hypertension documented in this encounter Results * (ABNORMAL) Testosterone, Total and Free (06/18/2022 11:14 AM FORM BLOCK MAKER) Testosterone, Free, S <0.13(L) 3.08 - 11.3 ng/dL 06/26/2022 12:37 PM CDT [facility] Comment: ----ADDITIONAL INFORMATION---- This test was developed and its performance characteristics determined by [facility] in a manner consistent with CLIA requirements. This test has not been cleared or approved by the U.S. Food and Drug Administration. Testosterone, Total by Mass Spectrometry, Serum <7.0(L) 240 - 950 ng/dL 06/20/2022 3:19 PM [facility] Comment: ----ADDITIONAL INFORMATION---- Testing performed by Liquid Chromatography-Tandem Mass Spectrometry (LC-MS/MS). This test was developed and its performance characteristics determined by [facility] in a manner consistent with CLIA requirements. This test has not been cleared or approved by the U.S. Food and Drug Administration. Blood (Blood, Venous) 06/18/2022 11:14 AM FORM BLOCK MAKER 06/19/2022 6:28 AM FORM BLOCK MAKER Shahram Arnold M.D. LAB BLOOD NON ADD-O N [facility] [address] [place] [address] [facility] [address] [place] [address] * PSA (Prostate-Specific Antigen), Diagnostic (06/18/2022 11:14 AM FORM BLOCK MAKER) Prostate-Specific Ag <0.10 <=6.5 ng/mL 06/18/2022 12:25 PM FORM BLOCK MAKER D[facility] Comment: ----ADDITIONAL INFORMATION---- The testing method is an electrochemiluminescence assay manufactured by [email or web address] and performed on the Modular or [employer] system. Values obtained with different assay methods or kits may be different and cannot be used interchangeably. Test results cannot be interpreted as absolute evidence for the presence or absence of malignant disease. Blood (Blood, Venous) 06/18/2022 11:14 AM FORM BLOCK MAKER 06/18/2022 11:53 AM FORM BLOCK MAKER Shahram Arnold M.D. LAB BLOOD ADD-ON [place] [address] [place] [address], [facility] [address] [place] [address] * Comprehensive Metabolic Panel (06/18/2022 11:14 AM FORM BLOCK MAKER) Pathologist [facility] Potassium, S 4.5 3.6 - 5.2 mmol/L 06/18/2022 12:25 PM FORM BLOCK MAKER DTL Sodium, S 144 135 - 145 mmol/L 06/18/2022 12:25 PM FORM BLOCK MAKER DTL Chloride, S 107 98 - 107 mmol/L 06/18/2022 12:25 PM FORM BLOCK MAKER DTL Bicarbonate, S 29 22 - 29 mmol/L 06/18/2022 12:25 PM FORM BLOCK MAKER DTL Anion Gap 8 7 - 15 06/18/2022 12:25 PM FORM BLOCK MAKER DTL BUN (Blood Urea Nitrogen), S 18 8 - 24 mg/dL 06/18/2022 12:25 PM FORM BLOCK MAKER DTL Creatinine 1.24 0.74 - 1.35 mg/dL 06/18/2022 12:25 PM FORM BLOCK MAKER DTL Estimated GFR (eGFR) 60 >=60 mL/min/BS A 06/18/2022 12:25 PM FORM BLOCK MAKER DTL Comment: Estimated GFR calculated using the 2020 CKD_EPI creatinine equation. Calcium, Total, S 9.1 8.8 - 10.2 mg/dL 06/18/2022 12:25 PM FORM BLOCK MAKER DTL Glucose, S 100 70 - 140 mg/dL 06/18/2022 12:25 PM FORM BLOCK MAKER DTL Protein, Total, S 6.5 6.3 - 7.9 g/dL 06/18/2022 12:25 PM FORM BLOCK MAKER DTL Albumin, S 4.2 3.5 - 5.0 g/dL 06/18/2022 12:25 PM FORM BLOCK MAKER DTL Aspartate Aminotransferase (AST), S 17 8 - 48 U/L 06/18/2022 12:25 PM FORM BLOCK MAKER DTL Alkaline Phosphatase, S 91 40 - 129 U/L 06/18/2022 12:25 PM FORM BLOCK MAKER DTL Alanine Aminotransferase (ALT), S 17 7 - 55 U/L 06/18/2022 12:25 PM FORM BLOCK MAKER DTL Bilirubin, Total, S 1.2 <=1.2 mg/dL 06/18/2022 12:25 PM FORM BLOCK MAKER DTL Blood (Blood, Venous) 06/18/2022 11:14 AM FORM BLOCK MAKER 06/18/2022 11:53 AM FORM BLOCK MAKER Shahram Arnold M.D. LAB BLOOD ADD-ON [place] [address] [place] [address], [facility] [place] [address] [place] [address] * (ABNORMAL) CBC with Differential, Blood (06/18/2022 11:14 AM FORM BLOCK MAKER) Hemoglobin 12.4(L) 13.2 - 16.6 g/dL 06/18/2022 11:50 AM FORM BLOCK MAKER DTL Hematocrit 36.7(L) 38.3 - 48.6 % 06/18/2022 11:50 AM FORM BLOCK MAKER DTL Erythrocytes 4.17(L) 4.35 - 5.65 x10(12)/L 06/18/2022 11:50 AM FORM BLOCK MAKER DTL MCV 88.0 78.2 - 97.9 fL 06/18/2022 11:50 AM FORM BLOCK MAKER DTL RBC Distrib Width 13.6 11.8 - 14.5 % 06/18/2022 11:50 AM FORM BLOCK MAKER DTL Platelet Count 246 135 - 317 x10(9)/L 06/18/2022 11:50 AM FORM BLOCK MAKER DTL Leukocytes 6.0 3.4 - 9.6 x10(9)/L 06/18/2022 11:50 AM FORM BLOCK MAKER DTL Neutrophils 4.02 1.56 - 6.45 x10(9)/L 06/18/2022 11:50 AM FORM BLOCK MAKER DTL Lymphocytes 1.06 0.95 - 3.07 x10(9)/L 06/18/2022 11:50 AM FORM BLOCK MAKER DTL Monocytes 0.67 0.26 - 0.81 x10(9)/L 06/18/2022 11:50 AM FORM BLOCK MAKER DTL Eosinophils 0.23 0.03 - 0.48 x10(9)/L 06/18/2022 11:50 AM FORM BLOCK MAKER DTL Basophils 0.03 0.01 - 0.08 x10(9)/L 06/18/2022 11:50 AM FORM BLOCK MAKER DTL Blood (Blood, Venous) 06/18/2022 11:14 AM FORM BLOCK MAKER 06/18/2022 11:38 AM FORM BLOCK MAKER Shahram Arnold M.D. LAB BLOOD ADD-ON [facility] - [address] [address], [facility] [address] [place] [address] documented in this encounter Visit Diagnoses Diagnosis Primary Malignant Neoplasm Of Prostate (HCC) Other Secondary Hypertension documented in this encounter Care Teams Warranty Administrator Relationship Specialty Start Date End Date Elsewhere, Pcp PCP - General Internal Medicine 10/22/19 documented as of this encounter
== END 2023-05-29 08:41 | disposition home or self-care (01) ==
LOC: NFLDREF 05-30 10:20
PROVIDERS: PCP Family Medicine; Referring Provider Family Medicine; Visit Provider Family Medicine
DX: E78.5 Hyperlipidemia, unspecified (principal); R73.03 Prediabetes; Z12.5 Encounter for screening for malignant neoplasm of prostate
CPT/HCPCS: 80053; 80061; G0103

== ENCOUNTER 2024-01-15 12:30 | Outpatient (CLI) | payer MEDICARE, SELFPAY ==
--- OUTSIDE RECORDS SUMMARY | 2024-01-15 12:32 | XMS_ITS ---
Author Organization [facility] Address [address] [place] [address] Care Team Providers Care Tool Shaper Set Up Operator Name Role Phone Elsewhere, Pcp Primary [...] On Elapsed Days Session Dose Total Dose [id number] 05/22/2021 35 270 cGy 7,020 cGy
--- OUTSIDE RECORDS SUMMARY | 2024-01-15 12:32 | XMS_ITS | Clinical Summary ---
Author Organization [facility] Address [address] [place] [address] Care Team Providers Care Carton Counter Feeder Name Role Phone Elsewhere, Pcp Primary Care Provider Unavailabl e Source Comments Patient records contain information from all sites at [facility]. For routine questions regarding patient records, call [phone] during business hours, M-F 8:00 AM - 5:00 PM Central Time. Record requests for emergency care only can be directed to [phone] at any time.[facility] Allergies No known active allergies Medications Medication Sig Dispensed Refills Start Date End Date Status atorvastatin (LIPITOR) 20 mg tablet Take 20 mg by mouth at bedtime. 07/27/2019 Active tamsulosin (FLOMAX) 0.4 mg 24 hr capsule Take 2 capsules by mouth at bedtime. 2 tablets (.8mg) 09/01/2019 Active sildenafil (REVATIO) 20 mg tablet Take 1-5 tablets by mouth 1 hour prior to sexual activity. Do not exceed more than 5 tabs in 24 hours. 30 tablet 11 01/12/2021 Active Additional Information Patient taking differently: 20 mg oral As needed, Take 1-5 tablets by mouth 1 hour prior to sexual activity. Do not exceed more than 5 tabs in 24 hours., Informant: Self, Reported on 12/10/2023 cholecalciferol (VITAMIN D3) 50 mcg (2,000 Unit) tablet Take 50 mcg by mouth at bedtime. Takes one 2000 Unit tablet at bedtime. 08/27/2021 Active calcium carbonate-vitamin D3 1,500 mg (600 mg calcium)-10 mcg (400 Unit) per tablet Take 2 tablets by mouth at bedtime. Active losartan (Cozaar) 25 mg tablet Take 25 mg by mouth daily. 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 on 03/31/2021 Encounters Date Type Department Care Team Description 12/23/2023 8:30 AM CDT Clinical Support Department of Rehabilitation Services in [address] [phone] Rey Lang P.A. Fogarty, Jennifer L P.Maxine, D.P.TRyan Pain Joint Ankle Right 12/12/2023 11:00 AM CDT Office Visit Division of Hematology in [address] [phone] Shahram Arnold M.D. Primary Malignant Neoplasm Of Prostate (HCC) (Primary Dx) 12/10/2023 2:30 PM CDT Clinical Communication Virtual Review in [address] [phone] Pre-visit Intake 12/09/2023 8:30 AM CDT Clinical Support Department of Rehabilitation Services in [address] [phone] Rey Lang P.A. Fogarty, Jennifer L P.TRyan, D.P.TRyan Pain Joint Ankle Right 12/09/2023 8:21 AM CDT - 12/09/2023 11:59 PM CDT Hospital Encounter Department of Laboratory Medicine in [address] [phone] Shahram Arnold M.D. Primary Malignant Neoplasm Of Prostate (HCC) Discharge Disposition: Home or Self Care 11/20/2023 4:00 PM CDT Comprehensive Visit Department of Rehabilitation Services in [place] [phone] Libertad Ordonez M.D. Samanta Menjivar P.T., D.P.T. Pain Joint Ankle Right (Primary Dx) from Last 3 Months Immunizations Name Administration Dates Next Due HZV (ZOSTAVAX) 09/27/2013 PCV13 10/03/2016 PPSV23 01/21/2018 RZV (SHINGRIX) 12/20/2020,07/16/2020 SARS-COV-2 (COVID-19) - MODERNA BIVALENT(Discont inued) 12/21/2021 SARS-COV-2 (COVID-19) - MODERNA(Discontinued) ,05/29/2020 Td (Adult), adsorbed 01/20/1999 Tdap 04/13/2019,10/04/2009 Family History Medical History Relation Name Comments Hyperlipidemia Father Pradip Dementia Mother Levy Diabetes Mother Elisavita Relation Name Status Comments Father Pradip Mother Levy Social History Tobacco Use Types Packs/Day Years Used Date Smoking Tobacco: Former Cigarettes 0 10/14/1963 - 10/13/1965 Passive Smoke Exposure: Never Smokeless Tobacco: Never Tobacco Cessation:Counseling Given: Not Answered Alcohol Use Standard Drinks/Week Comments Yes 19 (1 standard drink = 0.6 oz pu re alcohol) [facility] [employer] Answer Date Recorded In the past 12 months has [facility] [employer], gas, oil, or water [employer] threatened to shut off services in your home? No 06/01/2023 Humiliation, Afraid, Rape, and Kick questionnair e [...] often do you attend chur ch or episcopal services? Never 05/18/2022 Do you belong to any clubs o r organizations such as hoahaoism groups, unions, fraternal or athletic groups, or [...] and heating? Not hard at all 05/18/2022 [facility] - Occupational Stress [...] to strenuous exercise (like a brisk walk)? 3 days 06/01/2023 On average, how many minutes do you engage in exercise at this level? 30 min 06/01/2023 Hunger Vital Sign Answer Date Recorded Within the past 12 months, y ou worried that your food would run out before you got the money to buy more. Never true 06/01/19 24 Within the past 12 months, t he food you bought just didn't last and you didn't have money to get more. Never true 06/01/2023 PRAPARE - Transportation Answer Date Re corded In the past 12 months, has l ack of transportation kept you from medical appointments or from getting medications? No 05/16 In the past 12 months, has l ack of transportation kept you from meetings, work, or from getting things needed for daily living? No 06/01/2023 Nutrition Answer Date Recorded On average, how many serving s of fruits and vegetables do you eat per day (serving size is equal to 1 cup or approximately the size of a tennis ball)? 0-2 06/01/2023 Dental Answer Date Recorded Dental: Regular Dentist Yes 04/14/20 Employment Answer Date Recorded Employment status Retired 06/01/2023 Housing Stability Answer Date Recorded What is your living situation today? I have a [facility] place to live 06/01/2023 Education Answer Date Recorded What is the [...] Sign Reading Time Taken Comments Blood Pressure 135/84 12/12/2023 11:15 AM CDT Pulse 82 12/12/2023 11:15 AM CDT Temperature 36.2 ??C (97.2 ??F) 12/12/2023 1 1:15 AM CDT Respiratory Rate 16 12/12/2023 11:1 5 AM CDT Oxygen Saturation 97% 12/12/2023 11: 15 AM CDT Inhaled Oxygen Concentration - - Weight 92.3 kg (203 lb 7.8 oz) 12/12/2023 11:15 AM CDT With Boots broke leg recently Height 173 cm (5' 8.11) 12/12/2023 11: 15 AM CDT Body Mass Index 30.84 12/12/2023 11:15 AM CDT Plan of Treatment Health Maintenance Due Date Last Done Comments Hepatitis C Screening 1945 RSV vaccine - (32-36 weeks) or 60+ years (1 - 1-dose 75+ series) 2021 Depression Screening (Annual PHQ-2) 04/15/2023 Fall Risk Screen (Annual) 04/15/2023 COVID-19 Vaccine ( season) 2023 12/21/2021, 07/18/2021, 02/22/2021, Additional history exists Influenza Vaccine (#1) 2024 01/14/2023, 2021 Creatinine Level (Kidney Function Test) 12/08/2024 12/09/2023, 09/04/2023, 05/27/2023, Additional history exists Fasting Glucose for Diabetes Screening 12/08/2024 12/09/2023, 09/04/2023, 05/27/2023, Additional history exists Potassium Level 12/08/2024 12/09/2023, 08/14, 05/27/2023, Additional history exists Sodium Level 12/08/2024 12/09/2023, 08/14, 05/27/2023, Additional history exists Office Visit for Blood Pressure Check / Re-check 12/11/2024 12/12/2023 DTaP,Tdap,and Td Vaccines (3 - Td or Tdap) 04/13/2029 04/13/2019, 10/04/2009, 01/20/1999 Pneumococcal vaccine (65+ years) Completed 01/21/2018, 10/03/2016 Zoster Vaccines Completed 12/20/2020, 04/0 06/2020, 09/27/2013 HPV Vaccines Aged Out No longer eligi ble based on patient's age to complete this topic Procedures Procedure Name Priority Date/Time Associated Diagnosis Comments PROSTATE-SPECIFIC AG (PSA) DIAGNOSTIC, S Routine 12/09/2023 9:24 AM CDT Primary Malignant Neoplasm Of Prostate (HCC) COMPREHENSIVE METABOLIC PANEL, S/P Routine 12/09/2023 9:24 AM CDT Primary Malignant Neoplasm Of Prostate (HCC) CBC WITH DIFFERENTIAL, B Routine 12/09/2023 9:24 AM CDT Primary Malignant Neoplasm Of Prostate (HCC) from Last 3 Months Results * (ABNORMAL) CBC with Differential, Blood (12/09/2023 9:24 AM CDT) Hemoglobin 12.7(L) 13.2 - 16.6 g/dL 12/09/2023 9:38 AM CDT CNFL Hematocrit 38.4 38.3 - 48.6 % 12/09/2023 9:38 AM CDT CNFL Erythrocytes 4.33(L) 4.35 - 5.65 x10(12)/L 12/09/2023 9:38 AM CDT CNFL MCV 88.7 78.2 - 97.9 fL 12/09/2023 9:38 AM CDT CNFL RBC Distrib Width 13.3 11.8 - 14.5 % 12/09/2023 9:38 AM CDT CNFL Platelet Count 236 135 - 317 x10(9)/L 12/09/2023 9:38 AM CDT CNFL Leukocytes 7.2 3.4 - 9.6 x10(9)/L 12/09/2023 9:38 AM CDT CNFL Neutrophils 5.20 1.56 - 6.45 x10(9)/L 12/09/2023 9:38 AM CDT CNFL Lymphocytes 1.00 0.95 - 3.07 x10(9)/L 12/09/2023 9:38 AM CDT CNFL Monocytes 0.72 0.26 - 0.81 x10(9)/L 12/09/2023 9:38 AM CDT CNFL Eosinophils 0.23 0.03 - 0.48 x10(9)/L 12/09/2023 9:38 AM CDT CNFL Basophils 0.04 0.01 - 0.08 x10(9)/L 12/09/2023 9:38 AM CDT CNFL Blood (Blood, Venous) 12/09/2023 9:24 AM CDT 12/09/2023 9:26 AM CDT Shahram Arnold M.D. LAB BLOOD ADD-ON [facility] [address] [place] [id number], [facility] CNFL [facility] in [address] [address] * PSA (Prostate-Specific Antigen), Diagnostic (12/09/2023 9:24 AM CDT) Prostate-Specific Ag <0.10 <=6.5 ng/mL 12/09/2023 2:24 PM CDT RDW Comment: ----ADDITIONAL INFORMATION---- The testing method is an electrochemiluminescence assay manufactured by [employer] and performed on the Modular or Jessie system. Values obtained with different assay methods or kits may be different and cannot be used interchangeably. Test results cannot be interpreted as absolute evidence for the presence or absence of malignant disease. Blood (Blood, Venous) 12/09/2023 9:24 AM CDT 12/09/2023 12:38 PM CDT Shahram Arnold M.D. LAB BLOOD ADD-ON [facility] [address] [place] [phone], [facility] [address] [address] * Comprehensive Metabolic Panel (12/09/2023 9:24 AM CDT) Potassium, P 4.6 3.6 - 5.2 mmol/L 12/09/2023 9:52 AM CDT CNFL Sodium, P 142 135 - 145 mmol/L 12/09/2023 9:52 AM CDT CNFL Chloride, P 105 98 - 107 mmol/L 12/09/2023 9:52 AM CDT CNFL Bicarbonate, P 27 22 - 29 mmol/L 12/09/2023 9:52 AM CDT CNFL Anion Gap, P 10 7 - 15 12/09/2023 9:52 AM CDT CNFL BUN (Blood Urea Nitrogen), P 17 8 - 24 mg/dL 12/09/2023 9:52 AM CDT CNFL Creatinine 1.19 0.74 - 1.35 mg/dL 12/09/2023 9:52 AM CDT CNFL Estimated GFR (eGFR) 63 >=60 mL/min/BS A 12/09/2023 9:52 AM CDT CNFL Comment: Estimated GFR calculated using the 2020 CKD_EPI creatinine equation. Calcium, Total, P 9.1 8.8 - 10.2 mg/dL 12/09/2023 9:52 AM CDT CNFL Glucose, P 111 70 - 140 mg/dL 12/09/2023 9:52 AM CDT CNFL Protein, Total, P 7.0 6.3 - 7.9 g/dL 12/09/2023 9:52 AM CDT CNFL Albumin, P 4.1 3.5 - 5.0 g/dL 12/09/2023 9:52 AM CDT CNFL Aspartate Aminotransferase (AST), P 23 8 - 48 U/L 12/09/2023 9:52 AM CDT CNFL Alkaline Phosphatase, P 80 40 - 129 U/L 12/09/2023 9:52 AM CDT CNFL Alanine Aminotransferase (ALT), P 29 7 - 55 U/L 12/09/2023 9:52 AM CDT CNFL Bilirubin, Total, P 0.8 0.0 - 1.2 mg/dL 12/09/2023 9:52 AM CDT CNFL Blood (Blood, Venous) 12/09/2023 9:24 AM CDT 12/09/2023 9:26 AM CDT Shahram Arnold M.D. LAB BLOOD ADD-ON Performing Organization Address [facility]/State/[facility] Co de Phone Number [facility] [address] [place] [phone], [facility] CNFL [facility] in [address] [address] from Last 3 Months Care Teams Carton Counter Feeder Relationship Specialty Start Date End Date Elsewhere, Pcp PCP - General Internal Medicine 10/22/19
--- OUTSIDE RECORDS SUMMARY | 2024-01-15 12:32 | XMS_ITS | Encounter Summary ---
Author Organization [facility] Address [address] [place] [address] Care Team Providers Care Selector Packer Name Role Phone Elsewhere, Pcp Primary Care Provider Unavailabl e Reason for Visit * Physical Therapy (Routine) - Authorized Specialty Diagnoses / Procedures Referred By Alpa mijares Referred To Contact Diagnoses Pain Joint Ankle Right Procedures PT Ongoing treatment Rey Lang, P.A. [address] [place] [address] [facility] Region Referral ID Status Reason Start Date Expiration Date V isits Requested Visits Authorized [id number] Authorized 11/20/2023 11/19/2024 40 40 Encounter Details Date Type Department Care Team (Latest Contact Info) Description 12/23/2023 8:30 AM CDT Clinical Support Department of Rehabilitation Services in [address] [phone] Rey Lang, P.A. [address] [place] [address] Samanta Menjivar P.T., D.P.T. [address] [place] [phone] Pain Joint Ankle Right Social History Tobacco Use Types Packs/Day Years Used Date Smoking Tobacco: Former Cigarettes 0 10/14/1963 - 10/13/1965 Passive Smoke Exposure: Never Smokeless Tobacco: Never Alcohol Use Standard Drinks/Week Comments Yes 19 (1 standard drink = 0.6 oz pu re alcohol) [facility] Utilities Answer Date Recorded In the past 12 months has e [employer], gas, oil, or water [employer] threatened to shut off services in your [...] all 05/18/2022 [facility] - Occupational Stress Questionnaire Answer Date [...] your living situation today? I have a [facility] place to live 06/01/2023 Education Answer Date [...] as of this encounter Progress Notes * Samanta Menjivar P.T. - 12/23/2023 8:30 AM CDT Physical Therapy Outpatient Treatment Note SUBJECTIVE Patient's Name: Ruben Hansen Referring Provider: Dana Prieto Visit Diagnosis: 1. Pain Joint Ankle Right Payor: [facility] / Plan: [employer] ADVANTAGE PPO / Product Type: PPO / Session Start Time: 8:30 Session Stop Time: 8:50 No data recorded Epic Visit Count: 2 Patient comments: Patient is progressing well OBJECTIVE Pain: 0/10 Patient ambulates safely independently without the use an assistive device. Patient is demonstrating equal stride length and a nonantalgic gait pattern. Ankle range of motion is all within normal limits. TREATMENT Treatment today consisted of: Initiated strengthening with green Thera-Band for dorsiflexion, plantar flexion, inversion and eversion. Home Exercise Program/Education: Access Code: [email or web address] URL: [email or web address] Date: 12/23/2023 Prepared by: Samanta Menjivar Exercises - Supine Ankle Dorsiflexion and Plantarflexion AROM - 2 x daily - 7 x weekly - 3 sets - 10 reps - Long Sitting Calf Stretch with Strap - 2 x daily - 7 x weekly - 1 sets - 2 reps - 30 hold - Standing Hip Extension with Anchored Resistance - 1 x daily - 7 x weekly - 3 sets - 10 reps - Standing Hip Abduction with Anchored Resistance - 1 x daily - 7 x weekly - 3 sets - 10 reps - Standing Hip Adduction with Anchored Resistance - 1 x daily - 7 x weekly - 3 sets - 10 reps - Standing Repeated Hip Flexion with Resistance - 1 x daily - 7 x weekly - 3 sets - 10 reps - Standing Romberg to 3/4 Tandem Stance - 1 x daily - 7 x weekly - 1 sets - 3 reps - 30 hold - Ankle Dorsiflexion with Resistance - 1 x daily - 7 x weekly - 3 sets - 10 reps - Ankle and Toe Plantarflexion with Resistance - 1 x daily - 7 x weekly - 3 sets - 10 reps - Ankle Inversion with Resistance - 1 x daily - 7 x weekly - 3 sets - 10 reps - Ankle Eversion with Resistance - 1 x daily - 7 x weekly - 3 sets - 10 reps Patient reports good HEP compliance. Assessment Clinical Impression: Patient tolerated treatment session well. Patient is progressing well with range of motion and gait achieving those goals. Patient is demonstrating improved function as well. Patient will work on an independent home exercise program due to progress. Functional Goals and Timeframes: PT Goal #1: Patient will demonstrate full active range of motion of the right ankle in all directions. PT Goal #1 to be achieved by: 01/03/24 PT Goal #1 Status: Achieved PT Goal #2: Patient will demonstrate right ankle strength at a 5/5. PT Goal #2 to be achieved by: 01/03/24 PT Goal #2 Status: Progressing PT Goal #3: Patient will ambulate safely independently without the use an assistive device with a nonantalgic gait pattern. PT Goal #3 to be achieved by: 01/03/24 PT Goal #3 Status: Achieved PT Goal #4: Patient will safely independently perform an independent home exercise program. PT Goal #4 to be achieved by: 01/03/24 PT Goal #4 Status: Achieved Plan Plan for next session: Discharge into independent home exercise program. Time Spent with Patient Therapeutic Interventions Therapeutic Exercise (min): 20 min Time Tracking Total Timed Units (min): 20 min Total Treatment Time (min): 20 min documented in this encounter Plan of Treatment Not on file documented as of this encounter Visit Diagnoses Diagnosis Pain Joint Ankle Right documented in this encounter Care Teams Selector Packer Relationship Specialty Start Date End Date Elsewhere, Pcp PCP - General Internal Medicine 10/22/19 documented as of this encounter
--- OUTSIDE RECORDS SUMMARY | 2024-01-15 12:32 | XMS_ITS ---
Author Organization [facility] Address [address] [place] [address] Care Team Providers Care Automotive Tire Technician Name Role Phone Unavailable Unavailable Unavailable Surgery Details Not on file Complications Check Surgery Details section. Procedure Estimated Blood Loss Check Surgery Details section. Procedure Findings Check Surgery Details section. Procedure Specimens Taken Check Surgery Details section.
--- OUTSIDE RECORDS SUMMARY | 2024-01-15 12:32 | XMS_ITS | Referral Summary ---
Author Organization [facility] Address [address] [place] [phone] Care Team Providers Care Trap Puller Name Role Phone Elsewhere, Pcp Primary Care Provider Unavailabl e Source Comments Patient records contain information from all sites at [facility]. For routine questions regarding patient records, call [phone] during business hours, M-F 8:00 AM - 5:00 PM Central Time. Record requests for emergency care only can be directed to [phone] at any time.[facility] Encounters Date Type Department Care Team Description 12/23/2023 8:30 AM CDT Clinical Support Department of Rehabilitation Services in [address] [phone] Rey Lang P.A. Fogarty, Jennifer L, P.T., D.P.T. Pain Joint Ankle Right 12/12/2023 11:00 AM CDT Office Visit Division of Hematology in [address] [phone] Shahram Arnold M.D. Primary Malignant Neoplasm Of Prostate (HCC) (Primary Dx) 12/10/2023 2:30 PM CDT Clinical Communication Virtual Review in [address] [phone] Pre-visit Intake 12/09/2023 8:30 AM CDT Clinical Support Department of Rehabilitation Services in [address] [phone] Rey Lang P.A. Fogarty, Jennifer L, P.T., D.P.T. Pain Joint Ankle Right 12/09/2023 8:21 AM CDT - 12/09/2023 11:59 PM CDT Hospital Encounter Department of Laboratory Medicine in [address] [phone] Shahram Arnold M.D. Primary Malignant Neoplasm Of Prostate (HCC) Discharge Disposition: Home or Self Care 11/20/2023 4:00 PM CDT Comprehensive Visit Department of Rehabilitation Services in [address] [phone] Libertad Ordonez M.D. Fogarty, Jennifer L, P.T., D.P.T. Pain Joint Ankle Right (Primary Dx) from Last 3 Months Allergies No known [...] drink = 0.6 oz pu re alcohol) [facility] [employer] Answer Date Recorded In the past 12 months has e [employer], gas, oil, or water [employer] threatened to shut off services in your [...] often do you attend chur ch or catholic services? Never 05/18/2022 Do you belong to any clubs o r organizations such as spiritism groups, unions, fraternal or athletic groups, or [...] and heating? Not hard at all 05/18/2022 [facility] [place] [facility] Occupat ional Health - Occupational Stress [...] your living situation today? I have a [facility] place to live 06/01/2023 Education [...] 12/12/2023 11:15 AM CDT Plan of Treatment Not on file Procedures Procedure Name Priority Date/Time Associated Diagnosis [...] M.D. LAB BLOOD ADD-ON Performing Organization Address City/[facility]/ZIP Co de Phone Number [facility] [address] [place] [phone], [facility] CNFL [facility] in [address] [address] * PSA (Prostate-Specific Antigen), Diagnostic (12/09/2023 9:24 AM CDT) Prostate-Specific Ag <0.10 <=6.5 ng/mL 12/09/2023 2:24 PM CDT RDWG Comment: ----ADDITIONAL INFORMATION---- The testing method is an electrochemiluminescence assay manufactured by [employer] and performed on the Modular or Jessie system. Values obtained with different assay methods or kits may be different and cannot be used interchangeably. Test results cannot be interpreted as absolute evidence for the presence or absence of malignant disease. Blood (Blood, Venous) 12/09/2023 9:24 AM CDT 12/09/2023 12:38 PM CDT Shahram Arnold M.D. LAB BLOOD ADD-ON Performing Organization Address City/[facility] Co de Phone Number [facility] [address] [place] [address], [facility] RDWG [facility] in [place] [address] [place] [address] * Comprehensive Metabolic Panel (12/09/2023 9:24 AM [...] CDT Shahram Arnold M.D. LAB BLOOD ADD-ON [facility] [address] [place] [phone], [facility] CNFL [facility] in [address] [address] from Last 3 Months Care Teams Trap Puller Relationship Specialty Start Date End Date Elsewhere, Pcp PCP - General Internal Medicine 10/22/19
--- OUTSIDE RECORDS SUMMARY | 2024-01-15 12:33 | XMS_ITS | Encounter Summary ---
Author Organization [facility] Address [address] [place] [address] Care Team Providers Care Armature Straightener Name Role Phone Elsewhere, Pcp Primary Care Provider Unavailabl e Reason for Referral * Outpatient (Routine) - Authorized Specialty Diagnoses / Procedures Referred By Contac t Referred To Contact Oncology Shahram Arnold M.D. [address] [place] [phone] [facility] Referral ID Status Reason Start Date Expiration Date V isits Requested Visits Authorized [id number] Authorized 12/12/2023 06/12/2025 1 1 Reason for Visit * Outpatient (Routine) - Closed Specialty Diagnoses / Procedures Referred By Contac t Referred To Contact Oncology Shahram Arnold M.D. [address] [place] [phone] [facility] Referral ID Status Reason Start Date Expiration Date Visits Re quested Visits Authorized [id number] Closed 09/05/2023 03/06/2025 1 1 Encounter Details Date Type Department Care Team ([facility] st Contact Info) Description 12/12/2023 11:00 AM CDT Office Visit Division of Hematology in [place], [place] [address] [place] [phone] Shahram Arnold M.D. [address] [place] [phone] Primary Malignant Neoplasm Of Prostate (HCC) (Primary Dx) Social History Tobacco Use Types Packs/Day Years Used Date Smoking Tobacco: Former Cigarettes 0 10/14/1963 - 10/13/1965 Passive Smoke Exposure: Never Smokeless Tobacco: Never Alcohol Use Standard Drinks/Week Comments Yes 19 (1 standard drink = 0.6 oz pu re alcohol) [facility] Utilities Answer Date Recorded In the past 12 months has [facility] [employer], oil, or water [employer] threatened to shut off services in your [...] often do you attend chur ch or sikhism services? Never 05/18/2022 Do you belong to any clubs o r organizations such as roman catholic groups, unions, fraternal or athletic groups, or [...] and heating? Not hard at all 05/18/2022 [facility] - Occupational Stress Questionnaire Answer Date Recorded [...] living situation today? I have a [facility] place to live 06/01/2023 Education Answer Date [...] Mass Index 30.84 12/12/2023 11:15 AM CDT documented in this encounter Progress Notes * Shahram Arnold M.D. - 12/12/2023 11:00 AM CDT SUBJECTIVE CHIEF COMPLAINT / REASON FOR VISIT Ruben Hansen is a 78 y.o. male who presents for follow up of prostate adenocarcinoma. [facility] Primary Staff Oncologist: Dr. Tavera Supervising Oncologist: Dr. Bhatti Primary Fellow: Dr. Arnold HISTORY OF PRESENT ILLNESS Oncology History Overview Note March 2021: PSA 4, Fillmore 9, MRI showing T4N) disease (invasion of [...] biopsy: 6/6 left prostate region of interest Fillmore 4+5 (75% of specimen), extraprostatic extension and perineural invasion present; 6 benign cores right. Prostate examination showed leftinduration. 03/07/2021 Clinical Stage Staging form: Prostate, AJCC 8th Edition - Clinical stage from 03/07/2021: Stage IIIC (cT4, cN0, cM0, PSA: 4, Grade Group: 5) Histopathologic type: Adenocarcinoma, NOS Stage prefix: Initial diagnosis Prostate specific antigen (PSA) range: Less than 10 Fillmore primary pattern: 4 Basil secondary pattern: 5 [...] up today. Since our last visit, he unfortunately had a acute right distal fibular fracture in September, though this is healing well without surgical intervention. Otherwise, he has overall been doing well, no major changes to report today. He continues to do well without any concerning symptoms including fatigue, weight loss, persistent bone pain, or new urinary symptoms, though he does continue to have intermittent hot flashes. 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 Hansen back for follow up. His labs look satisfactory today. His hemoglobin is mildly low, but has been stable over at least the past year with a negative workup for vitamin/mineral deficiencies. Plan was for 2 years of systemic therapy from end of EBRT (completed in May 2021), which was completed in May 2023. He received his most recent dose of Eligard on approximately 02/22/2023, which was his final dose. Abiraterone was discontinued at this time; note that he had not been on prednisone with this. Per discussion with Dr. Ames and Dr. Tavera, we will plan for surveillance with labs (including PSA) every 3 months for the first 1-2 years (given he was high-risk, asymptomatic, and without significant PSA elevation at diagnosis). Thereafter, if all goes well, we can consider spacing out labsto every 6 months to complete 5 years of surveillance. Following this period, PSA monitoring can bespaced out to annually. We will see him back for follow up in 3 months. Shahram Arnold M.D. Hematology/Oncology PGY-6 documented in this encounter Plan of Treatment Scheduled Orders Name Type Priority Associated Diagnoses Orde r Schedule CBC with Differential, Blood Lab Routine Primary Malignant Neoplasm Of Prostate (HCC) Expected: 03/13/2024, Expires: 12/11/2024 Comprehensive Metabolic Panel Lab Routine Primary Malignant Neoplasm Of Prostate (HCC) Expected: 03/13/2024, Expires: 03/13/2025 PSA (Prostate-Specific Antigen), Diagnostic Lab Routine Primary Malignant Neoplasm Of Prostate (HCC) Expected: 03/13/2024, Expires: 03/13/2025 Testosterone, Total and Free Lab Routine Primary Malignant Neoplasm Of Prostate (HCC) Expected: 03/13/2024, Expires: 03/13/2025 Hemoglobin A1c Lab Routine Primary Malignant Neoplasm Of Prostate (HCC) Expected: 03/13/2024, Expires: 03/13/2025 Scheduled Referrals Name Type Priority Associated Diagnoses Orde r Schedule Oncology office visit (clinic) Outpatient Referral Routine Expected: 03/13/2024 (Approximate), Expires: 03/13/2025 documented as of this encounter Visit Diagnoses Diagnosis Primary Malignant Neoplasm Of Prostate (HCC)- Primary documented in this encounter Care Teams Armature Straightener Relationship Specialty Start Date End Date Elsewhere, Pcp PCP - General Internal Medicine 10/22/19 documented as of this encounter
--- OUTSIDE RECORDS SUMMARY | 2024-01-15 12:33 | XMS_ITS | Encounter Summary ---
Author Organization [facility] Address [address] [place] [address] Care Team Providers Care Escrow Closer Name Role Phone Elsewhere, Pcp Primary Care Provider Unavailabl e Reason for Visit * Reason Onset Date Comments Pre-visit Intake 12/10/2023 Encounter Details Date Type Department Care Team (Latest Contact Info) Description 12/10/2023 2:30 PM CDT Clinical Communication Virtual Review in [place], [place] [address] [place] [phone] Pre-visit Intake Social History Tobacco Use Types Packs/Day Years Used Date Smoking Tobacco: Former Cigarettes 0 10/14/1963 - 10/13/1965 Passive Smoke Exposure: Never Smokeless Tobacco: Never Tobacco Cessation:Counseling Given: Not Answered Alcohol Use Standard Drinks/Week Comments Yes 19 (1 standard drink = 0.6 oz pu re alcohol) [facility] Utilities Answer Date Recorded In the past 12 months has [facility] [employer], gas, oil, or water [email or web address] threatened to shut off services in your [...] any clubs o r organizations such as amish groups, unions, fraternal or athletic groups, or [...] and heating? Not hard at all 05/18/2022 [facility] - Occupational [...] your living situation today? I have a [facility] place to live 06/01/2023 Education Answer [...] as of this encounter Plan of Treatment Not on file documented as of this encounter Visit Diagnoses Not on filedocumented in this encounter Care Teams Escrow Closer Relationship Specialty Start Date End Date Elsewhere, Pcp PCP - General Internal Medicine 10/22/19 documented as of this encounter
--- OUTSIDE RECORDS SUMMARY | 2024-01-15 12:33 | XMS_ITS | Encounter Summary ---
Author Organization [facility] Address [address] [place] [address] Care Team Providers Care Canine Service Teacher Name Role Phone Elsewhere, Pcp Primary Care Provider Unavailabl e Encounter Details Date Type Department Care Team (Latest Contact Info) Description 12/09/2023 8:21 AM CDT - 12/09/2023 11:59 PM CDT Hospital Encounter Department of Laboratory Medicine in [address] [phone] Shahram Arnold M.D. [address] [place] [phone] Primary Malignant Neoplasm Of Prostate (HCC) Discharge Disposition: Home or Self Care Social History Tobacco Use Types Packs/Day Years Used Date Smoking Tobacco: Former Cigarettes 0 10/14/1963 - 10/13/1965 Passive Smoke Exposure: Never Smokeless Tobacco: Never Alcohol Use Standard Drinks/Week Comments Yes 19 (1 standard drink = 0.6 oz pu re alcohol) [facility] Utilities Answer Date Recorded In the past 12 months has e electric, gas, oil, or water company threatened to shut off services in your [...] often do you attend chur ch or sikh services? Never 05/18/2022 Do you belong to [...] and heating? Not hard at all 05/18/2022 [facility] [place] of Occupat ional Health - Occupational Stress [...] your living situation today? I have a [facility] place to live 06/01/2023 Education Answer Date [...] 20 mg by mouth at bedtime. 07/27/2019 calcium carbonate-vitamin D3 1,500 mg (600 mg calcium)-10 mcg (400 Unit) per tablet Take 2 tablets by mouth at bedtime. cholecalciferol (VITAMIN D3) 50 mcg (2,000 Unit) tablet Take 50 mcg by mouth at bedtime. Takes one 2000 Unit tablet at bedtime. 08/27/2021 losartan (Cozaar) 25 mg tablet Take 25 mg by mouth daily. 08/21/2023 sildenafil (REVATIO) 20 mg tablet Take 1-5 tablets by mouth 1 hour prior to sexual activity. Do not exceed more than 5 tabs in 24 hours. 30 tablet 11 01/12/2021 tamsulosin (FLOMAX) 0.4 mg 24 hr capsule Take 2 capsules by mouth at bedtime. 2 tablets (.8mg) 09/01/2019 documented as of this encounter Plan of Treatment Not on file documented as of this encounter Procedures Procedure Name Priority Date/Time Associated Diagnosis Comments CBC WITH DIFFERENTIAL, B Routine 12/09/2023 9:24 AM CDT Primary Malignant Neoplasm Of Prostate (HCC) PROSTATE-SPECIFIC AG (PSA) DIAGNOSTIC, S Routine 12/09/2023 9:24 AM CDT Primary Malignant Neoplasm Of Prostate (HCC) COMPREHENSIVE METABOLIC PANEL, S/P Routine 12/09/2023 9:24 AM CDT Primary Malignant Neoplasm Of Prostate (HCC) documented in this encounter Results * PSA (Prostate-Specific Antigen), Diagnostic (12/09/2023 9:24 [...] CDT Shahram Arnold M.D. LAB BLOOD ADD-ON [facility] [address] [facility] [place] [address], [facility] RDWG [facility] [place] [address] [address] * Comprehensive Metabolic Panel (12/09/2023 9:24 AM [...] CDT Shahram Arnold M.D. LAB BLOOD ADD-ON [facility] [address] [place] [address], [facility] CNFL [facility] [place] [address] * (ABNORMAL) CBC with Differential, Blood (12/09/2023 [...] M.D. LAB BLOOD ADD-ON Performing Organization Address City/State/[facility] Co de Phone Number [facility] [address] [place] [address], [facility] CNFL [facility] in [address] [address] documented in this encounter Visit Diagnoses Diagnosis Primary Malignant Neoplasm Of Prostate (HCC) documented in this encounter Care Teams Canine Service Teacher Relationship Specialty Start Date End Date Elsewhere, Pcp PCP - General Internal Medicine 10/22/19 documented as of this encounter
--- OUTSIDE RECORDS SUMMARY | 2024-01-15 12:33 | XMS_ITS | Encounter Summary ---
Author Organization [facility] Address [address] [place] [address] Care Team Providers Care Strike Warfare/Missile Systems Officer Name Role Phone Elsewhere, Pcp Primary Care Provider Unavailabl e Reason for Visit * Physical Therapy (Routine) - Authorized Specialty Diagnoses / Procedures Referred By Alpa mijares Referred To Contact Diagnoses Pain Joint Ankle Right Procedures PT Ongoing treatment Rey Lang, P.A. [address] [place] [phone] [facility] Region Referral ID Status Reason Start Date Expiration Date V isits Requested Visits Authorized [id number] Authorized 11/20/2023 11/19/2024 40 40 Encounter Details Date Type Department Care Team (Latest Contact Info) Description 12/09/2023 8:30 AM CDT Clinical Support Department of Rehabilitation Services in [address] [phone] Rey Lang, P.A. [address] [place] [phone] Samanta Menjivar P.T., D.P.T. [address] [place] [phone] Pain Joint Ankle Right Social History Tobacco Use Types Packs/Day Years Used Date Smoking Tobacco: Former Cigarettes 0 10/14/1963 - 10/13/1965 Passive Smoke Exposure: Never Smokeless Tobacco: Never Alcohol Use Standard Drinks/Week Comments Yes 19 (1 standard drink = 0.6 oz pu re alcohol) [facility] Utilities Answer Date Recorded In the past 12 months has e [employer], gas, oil, or water [employer] threatened to shut off services in your [...] any clubs o r organizations such as druze groups, unions, fraternal or athletic groups, or [...] and heating? Not hard at all 05/18/2022 [facility] Occupat ional [facility] [...] living situation today? I have a [facility] place to live 06/01/2023 Education Answer Date [...] Progress Notes * Samanta Menjivar P.T. - 12/09/2023 8:30 AM CDT Physical Therapy Outpatient Treatment Note SUBJECTIVE Patient's Name: Ruben Hansen Referring Provider: Dana Prieto Visit Diagnosis: 1. Pain Joint Ankle Right Payor: [facility] / Plan: [employer] MEDICARE ADVANTAGE PPO / Product Type: PPO / Session Start Time: 8:30 Session Stop Time: 9:13 No data recorded Epic Visit Count: 1 Patient comments: Patient reports he has been doing well. He is noting improved mobility. He reports a little uneasiness when walking on uneven ground but is just more cautious. OBJECTIVE Pain: Patient is reporting some back pain today. Ortho Exam Active range of motion for right foot dorsiflexion increased to 60??, plantar flexion is now withinnormal limits, inversion is within normal limits and eversion is within normal limits. Swelling circumference measurement at the right malleoli is slightly higher today at 27 cm with theleft at 25 cm. Patient is ambulating safely independently without the use an assistive device with a nonantalgic gait pattern. Patient is now able to negotiate the steps with reciprocal gait pattern safely independently. TREATMENT Treatment today consisted of: Today performed passive range of motion to the right ankle for dorsiflexion, plantar flexion, inversion and eversion. Performed gastroc stretch at 3 x 30 seconds. Performed standing strengthening balance activity with standing hip abduction standing hip flexion standing hip extension standing hip abduction with an orange Thera-Band 10 repetitions bilaterally with minimal upper extremity support. Performed seated balance board for dorsiflexion, plantar flexion, inversion and eversion. Half step tandem stance 2 times 30 seconds. 3/4 tandem stance 2 times 30 seconds. Home Exercise Program/Education: Access Code: [email or web address] URL: [email or web address] Date: 12/09/2023 Prepared by: Samanta Menjivar Exercises - Supine [...] sets - 3 reps - 30 hold Patient reports good HEP compliance. Assessment Clinical Impression: Patient tolerated treatment session well. Patient is demonstrating excellent progress with range of motion. Patient has a slight increase in swelling today. Overall patient is progressing nicely. We did progress to higher level balance activities today. Patient continues to benefit from skilled physical therapy to return to previous level of function. Functional Goals and Timeframes: PT Goal #1: Patient will demonstrate full active range of motion of the right ankle in all directions. PT Goal #1 to be achieved by: 01/03/24 PT Goal #2: Patient will demonstrate right ankle strength at a 5/5. PT Goal #2 to be achieved by: 01/03/24 PT Goal #3: Patient will ambulate safely independently without the use an assistive device with a nonantalgic gait pattern. PT Goal #3 to be achieved by: 01/03/24 PT Goal #4: Patient will safely independently perform an independent home exercise program. PT Goal #4 to be achieved by: 01/03/24 Plan Plan for next session: Patient will return in approximately 2 weeks for reassessment of range of motion progression of high-level balance activities. Patient will benefit from progression to strengthening when approved by provider. Time Spent with Patient Therapeutic Interventions Neuromuscular Re-Education (min): 13 min Therapeutic Exercise (min): 30 min Time Tracking Total Timed Units (min): 43 min Total Treatment Time (min): 43 min documented in this encounter Plan of Treatment Not on file documented as of this encounter Visit Diagnoses Diagnosis Pain Joint Ankle Right documented in this encounter Care Teams Strike Warfare/Missile Systems Officer Relationship Specialty Start Date End Date Elsewhere, Pcp PCP - General Internal Medicine 10/22/19 documented as of this encounter
--- OUTSIDE RECORDS SUMMARY | 2024-01-15 12:33 | XMS_ITS | Encounter Summary ---
Author Organization [facility] Address [address] [place] [address] Care Team Providers Care Manager Farm Name Role Phone Elsewhere, Pcp Primary Care Provider Unavailabl e Reason for Referral * Physical Therapy (Routine) - Authorized Specialty Diagnoses / Procedures Referred By Contac t Referred To Contact Diagnoses Pain Joint Ankle Right Procedures PT Ongoing treatment Rey Lang, P.A. [address] [facility] [address] [address] [phone] [facility] Region Referral ID Status Reason Start Date Expiration Date V isits Requested Visits Authorized [id number] Authorized 11/20/2023 11/19/2024 40 40 Reason for Visit * Appointment Request (Routine) - Closed Specialty Diagnoses / Procedures Referred By Contact Referred To Contact Physical Medicine and Rehabilitation Diagnoses Fracture Fibula Lower Closed Subsequent Right Rey Lang, P.A. [address] [place] [address] Referral ID Status Reason Start Date Expiration Date Visits Re quested Visits Authorized [id number] Closed 11/06/2023 11/05/2024 1 1 Encounter Details Date Type Department Care Team (Latest Contact Info) Description 11/20/2023 4:00 PM CDT Comprehensive Visit Department of Rehabilitation Services in [address] [place] [phone] Libertad Ordonez M.D. [address] [facility] [address] [place] [phone] Samanta Menjivar P.T., D.P.T. [id number] [place] [phone] Pain Joint Ankle Right (Primary Dx) Social History Tobacco Use Types Packs/Day Years Used Date Smoking Tobacco: Former Cigarettes 0 10/14/1963 - 10/13/1965 Passive Smoke Exposure: Never Smokeless Tobacco: Never Alcohol Use Standard Drinks/Week Comments Yes 19 (1 standard drink = 0.6 oz pu re alcohol) [facility] Utilities Answer Date Recorded In the past 12 months has e [employer], gas, oil, or water [employer] threatened to shut off services in your [...] often do you attend chur ch or mandaen services? Never 05/18/2022 Do you belong to [...] and heating? Not hard at all 05/18/2022 [facility] [place] [facility] Occupat ional [facility] - Occupational Stress [...] AM CDT documented as of this encounter Consult Notes * Samanta Menjivar P.T. - 11/20/2023 4:00 PM CDT Physical Therapy Outpatient Evaluation/Treatment By co-signing this note, the provider certifies the therapy being provided to this patient is reasonable and necessary for the diagnosis or treatment of this patient. SUBJECTIVE Patient's Name: Ruben Hansen Referring Provider: Dana Prieto Visit Diagnosis: 1. Pain Joint Ankle Right Reason for Referral: PT eval and treat Payor: [facility] / Plan: [facility] MEDICARE ADVANTAGE PPO / Product Type: PPO / Session Start Time: 4:00pm Session Stop Time: 4:32 pm Epic Visit Count: Visit count could not be calculated. Make sure you are using a visit which is associated with an episode. PERTINENT MEDICAL / SURGICAL HISTORY: Patient Active Problem List Diagnosis Primary Malignant Neoplasm Of Prostate (HCC) Other Secondary Hypertension Past Surgical History: Procedure Laterality Date HERNIA REPAIR 1959 URETEROSCOPY STONE EXTRACTION Left 2010 Patient presents to outpatient physical therapy for evaluation of symptoms including: Right ankle ROM/strength following fx. Overall patient reports status is improving . History of Present Illness: Patient is status post closed acute right distal fibular fracture, Madrigal B without increased medial clear space gravity stress view. Date of injury 09/27/2023. Patient recently had his cast removed on 10/25/2023 and patient is now in a Cam boot. Patient is doing well with a Cam boot and is ambulating with the use of a single crutch. Patient has reporting very little pain he reports pinprick pains. He reports this lasts very short duration. This pain is noted inferiorto the lateral malleoli and he also notes some numbness and tingling on the plantar surface of the right foot. Patient has started noticing right medial knee pain which is new. Prior Function/Occupational Profile: No prior limitation Additional Staff Present During Session: no Patient goals: Return to previous level of function OBJECTIVE PHYSICAL EXAM Pain: 05/25 Ortho Exam Patient ambulates into physical therapy today safely independently utilizing a single crutch wearing a Cam boot on his right foot. Patient does demonstrate external rotation of the right lower extremity during gait. Patient was instructed on this as this may be contributing to his medial knee pain. Ankle range of motion actively dorsiflexion 3?? plantar flexion 40??, inversion 20?? and eversion within normal limits. Manual muscle testing not assessed. Swelling measurement: Circumference at the malleoli on the right 26 cm on the left 25 cm. TREATMENT Treatment today consisted of: Today we instructed patient on home exercise program. Home Exercise Program/Education: Access Code: [email or web address] URL: [email or web address] Date: 11/20/2023 Prepared by: Samanta Menjivar Exercises - Supine Ankle Dorsiflexion and Plantarflexion AROM - 2 x daily - 7 x weekly - 3 sets - 10 reps - Supine Ankle Inversion Eversion AROM - 2 x daily - 7 x weekly - 3 sets - 10 reps - Supine Ankle Circles - 2 x daily - 7 x weekly - 3 sets - 10 reps - Long Sitting Calf Stretch with Strap - 2 x daily - 7 x weekly - 1 sets - 2 reps - 30 hold - Active Straight Leg Raise with Quad Set - 1 x daily - 7 x weekly - 3 sets - 10 reps - Sidelying Hip Abduction - 1 x daily - 7 x weekly - 3 sets - 10 reps - Clamshell - 1 x daily - 7 x weekly - 3 sets - 10 reps Assessment Clinical Impression: Patient presents to physical therapy with signs and symptoms consistent with right ankle fracture. Impairments: Pain, swelling, range of motion, strength and gait. Functional deficits: Decreased positional and activity tolerance. Rehab Potential: Patient has good potential to achieve established physical therapy goals within the time frame outlined below, provided active participation in the physical therapy treatment plan and home program. Functional Goals and Timeframes: PT Outpatient Goals PT Goal #1: Patient will demonstrate full active range of motion of the right ankle in all directions. PT Goal #1 Date: 01/03/24 PT Goal #2: Patient will demonstrate right ankle strength at a 5/5. PT Goal #2 Date: 01/03/24 PT Goal #3: Patient will ambulate safely independently without the use an assistive device with a nonantalgic gait pattern. PT Goal #3 Date: 01/03/24 PT Goal #4: Patient will safely independently perform an independent home exercise program. PT Goal #4 Date: 01/03/24 Plan Patient was educated regarding evaluative findings, diagnosis, prognosis, potential risks and benefits of rehabilitation interventions. A collaborative effort was used to establish goals and plan of care. The patient was informed of the right to make decisions regarding care, including refusal of examination or treatment or selection of services from another provider if desired. The treatment plan may be progressed or modified based upon the patient's response to treatment. Treatment Plan: Start of Plan of Care: 11/20/2023 Number of Visits: 6 visits PT Duration: 6 weeks PT Frequency: up to 1x/week Treatment interventions may include: Patient education, home exercise program, range of motion, stretching, strengthening, gait and balance training. Plan for next session: Reassess range of motion and swelling. Progress to strengthening when approved by provider.Balance training. Time Spent with Patient Evaluations PT Eval - Low Complexity: 32 min Time Tracking Total Treatment Time (min): 32 min documented in this encounter Plan of Treatment Not on file documented as of this encounter Visit Diagnoses Diagnosis Pain Joint Ankle Right- Primary documented in this encounter Care Teams Manager Farm Relationship Specialty Start Date End Date Elsewhere, Pcp PCP - General Internal Medicine 10/22/19 documented as of this encounter
--- NOTE | 2024-01-15 13:00 | MR_ITS ---
[address] [address] Phone:?[phone] Fax:?[phone] Referring Physician Information: [address] [facility] [address] Phone:?[phone] Fax:?[phone] Patient:?Ruben Hansen D.O.B:?1945 Sex:?Male Phone:?[phone] [facility] MRN:?[id number] Exam Date:?01/15/2024 EXAM: MRI OF THE RIGHT ANKLE WITHOUT CONTRAST CLINICAL INFORMATION: Male, 78 years old, with history of ankle fracture. INDICATION: Evaluate for AVN of the talus. PRIOR SURGERY: None reported. PLAIN FILMS: Multiple radiographs are available for comparison, most recently from 01/03/2024. COMPARISONS: No prior MRIs available. TECHNICAL INFORMATION: Using a 1.5T MR scanner and a localizing surface coil: sagittals: PD, T2, STIR coronals: PD, T2FS axials: PD, T2FS, T2FS oblique SEDATION: None. CONTRAST: None. FINDINGS: Osseous structures: Obliquely oriented fracture of the distal fibular diaphysis, without significant surrounding bone marrow edema (sagittal PD series 6 image 9). Os trigonum: No os trigonum or abnormally prominent Stieda's process. Tarsal coalition: No calcaneonavicular, talocalcaneal or cubonavicular coalition. Tibiotalar joint: Effusion: Mild-moderate tibiotalar joint effusion. Ganglion cyst: None. Osteochondral surfaces: Mild generalized thinning of the articular cartilage throughout the tibiotalar joint with minimal marginal osteophytosis. Loose bodies: No demonstrable loose bodies. Subtalar joint: Effusion: Physiologic. Articular cartilage: No osteochondral abnormality. Tarsal joints: Talonavicular: Unremarkable. Calcaneocuboid: Unremarkable. Naviculocuneiform: Unremarkable. Tarsometatarsal: Minimal chondral thinning, osteophytosis, and irregularity of the 2nd, 4th, & 5th TMT joints. Ligaments: Syndesmotic ligaments:?The anterior and posterior inferior tibiofibular syndesmotic ligaments are intact, but the anterior inferior tibiofibular ligament is moderately thickened and irregular in appearance (axial PD series 3 images 11-13. Lateral ligaments:?The anterior talofibular ligament, posterior talofibular ligament, and calcaneofibular ligaments are intact. Deltoid ligament:?The visualized components of the superficial and deep deltoid ligament, specifically the tibiospring and posterior tibiotalar ligaments, are intact. Calcaneonavicular spring ligament:?The superomedial component of the calcaneonavicular spring ligament is grossly intact. Bifurcate and calcaneocuboid ligaments:?Intact lateral calcaneonavicular and medial calcaneocuboid ligaments. The dorsolateral calcaneocuboid ligament is intact. Tendons: Peroneal:?The peroneal tendons are appropriately situated within the retromalleolar groove and the superior peroneal retinaculum is intact. Normal thickness and signal intensity without tendinopathy, tenosynovitis, or split/tear. Flexor tendons:?The posterior tibialis, flexor digitorum and flexor hallucis longus tendons are intact. No significant tendinopathy and without tenosynovitis, tendon split or tendon disruption. 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 Extensor tendons:?The anterior tibialis, extensor digitorum longus, and extensor hallucis longus tendons are intact. No significant tendinopathy and without tenosynovitis, tendon split or tendon disruption. Achilles:?Moderate Achilles tendinopathy and thickening, without tear (sagittal PD series 6 image 16). Sinus tarsi:?The sinus tarsi signal is normal. Plantar aponeurosis: There is no abnormal thickening of, abnormal intrasubstance signal involving, or perifascial edema about the plantar aponeurosis. Specifically, the plantar fascia origin appears normal in signal intensity and morphology. Plantar musculature:?The intrinsic foot musculature is normal in bulk and signal intensity without evidence of denervation atrophy. Neurovascular structures and tarsal tunnel: The posterior tibial neurovascular structures appear unremarkable coursing past the ankle and through the tarsal tunnel. IMPRESSION: 1. Age-indeterminate oblique fracture of the distal fibula, which appears mostly healed on the accompanying radiographs. 2. 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 This associated with mild-moderate tibiotalar joint effusion. 3. Moderate Achilles tendinopathy. 4. Chronic sprain of the anterior inferior tibiofibular ligament, without discrete tear or evidence of an acute injury. 5. No other osseous abnormality. Specifically, there is no evidence of talus avascular necrosis, as clinically questioned. 6. No other ligamentous or myotendinous abnormality. BC Electronically signed on 01/16/2024 8:16:00 AM by Bassem Garcia M.D.
== END 2024-01-15 12:31 | disposition home or self-care (01) ==
LOC: MRI 12:30
PROVIDERS: PCP Family Medicine; Visit Provider Physician Assistant Surgical
DX: S82.831D Other fracture of upper and lower end of right fibula, subsequent encounter for closed fracture with routine healing (principal); M19.071 Primary osteoarthritis, right ankle and foot; M25.471 Effusion, right ankle
CPT/HCPCS: 73721

== ENCOUNTER 2024-07-15 07:44 | Outpatient (CLI) | payer MEDICARE, SELFPAY | END 2024-07-15 07:45 | disposition home or self-care (01) | LOC: NFLDREF 07-18 17:14 | PROVIDERS: PCP Family Medicine; Referring Provider Family Medicine; Visit Provider Family Medicine | DX: E78.5 Hyperlipidemia, unspecified (principal); R73.03 Prediabetes | CPT/HCPCS: 80053; 80061 ==